=== PATIENT | female | born 1970 | race Caucasian/White ===

== ENCOUNTER 2017-10-21 19:46 | Emergency (ER) | payer MEDICAID, SELFPAY | END 2017-10-21 20:45 | disposition home or self-care (01) | PROVIDERS: Emergency Provider Nurse Practitioner Family; Family Provider Internal Medicine Adolescent Medicine; Visit Provider Nurse Practitioner Family | DX: K52.9 Noninfective gastroenteritis and colitis, unspecified (principal); F17.210 Nicotine dependence, cigarettes, uncomplicated; Z88.2 Allergy status to sulfonamides; F43.21 Adjustment disorder with depressed mood | CPT/HCPCS: 87804; 99201 ==

== ENCOUNTER → 2017-11-18 14:05 | Outpatient (CLI) | payer MEDICAID, SELFPAY ==
[2017-11-18 14:58] LABS: Basophils # 0.1 K/mm3 (0-0.2); Basophils % 0.6 % (0.1-2.0); Eosinophils # 0.2 K/mm3 (0.0-0.4); Eosinophils % 1.6 % (0.1-12.0); Hemoglobin 12.8 g/dL (12.2-16.2); Lymphocytes # 3.7 K/mm3 (0.7-4.5); Lymphocytes % 26.6 K/mm3 (10-50); Mean Corpuscular HGB Conc 31.9 g/dL (31.8-35.4); Mean Corpuscular Hemoglobin 29.6 pg (27.0-31.2); Mean Corpuscular Volume 92.7 fl (81-99); Mean Platelet Volume 7.3 fl (7.4-10.4); Monocytes # 0.7 K/mm3 (0.1-1.0); Monocytes % 5.1 % (1.7-9.3); Neutrophils # 9.1 K/mm3 (1.8-7.8); Neutrophils % 66.2 % (37.0-80.0); Platelet Count 312 K/mm3 (142-424); Red Blood Count 4.31 M/mm3 (4.20-5.40); Red Cell Distribution Width 12.6 % (11.5-17.5); White Blood Count 13.8 K/mm3 (4.8-10.8)
[2017-11-18 16:01] LABS: Alanine Aminotransferase 18 U/L (12-78); Albumin Level 3.8 gm/dL (3.4-5.0); Albumin/Globulin Ratio 1.3 (1.1-1.8); Alkaline Phosphatase 76 U/L (46-116); Anion Gap 11.6 mEq/L (5-15); Aspartate Amino Transferase 12 U/L (15-37); Bilirubin,Total 0.4 mg/dL (0.2-1.0); Blood Urea Nitrogen 9 mg/dL (7-18); Calcium 8.9 mg/dL (8.5-10.1); Carbon Dioxide 29 mmol/L (21.0-32.0); Chloride 101 mmol/L (98-107); Creatinine,Serum 0.61 mg/dL (0.55-1.02); Estimated Glomerular Filt Rate 105 ml/min (>60); GFR (African American) 127 ML/MIN (>60); Glucose 70 mg/dL (74-106); Potassium 3.6 mmoL/L (3.5-5.1); Sodium 138 mmol/L (136-145); Thyroid Stimulating Hormone 1.28 uIU/ml (0.358-3.740); Total Protein,Serum 6.8 gm/dL (6.4-8.2)
== END ==
PROVIDERS: PCP Nurse Practitioner Family; Visit Provider Nurse Practitioner Family
DX: D72.829 Elevated white blood cell count, unspecified (principal); E03.9 Hypothyroidism, unspecified
CPT/HCPCS: 36415; 80053; 84443; 85025

== ENCOUNTER → 2017-11-29 15:44 | Outpatient (CLI) | payer MEDICAID, SELFPAY ==
--- NOTE | 2017-11-29 15:52 | MM_ITS ---
MM Dig screening mamm BI w/CAD CAD Screening COMPARISON: Digital mammograms 09/22/2015 and 05/01/2013 INDICATION: There is no personal or family history of breast cancer. There is been previous biopsy right breast for benign disease. TECHNIQUE: Standard CC and MLO images were obtained. R2 CAD reviewed. FINDINGS: Prominent diffuse fibroglandular densities are seen throughout both breasts. There is more prominent nodularity in the right breast than seen previously and there is a possible new nodule left breast only definitely seen on the cc view. The patient should return for ultrasound evaluation of both breasts. There is a biopsy clip right breast. There are no suspicious microcalcifications. IMPRESSION: Moderate diffuse breast density with possible new nodules in each breast likely cysts and the patient should return for additional ultrasound imaging . BI-RADS Category: 0 Need Additional Imaging Evaluaiton RECOMMENDED FOLLOW-UP: IMM - IMMEDIATE FOLLOW-UP RECOMMENDED (A letter has been sent to the patient regarding results of the study.)
== END ==
PROVIDERS: Family Provider Internal Medicine Adolescent Medicine; PCP Nurse Practitioner Family; Visit Provider Nurse Practitioner Family
DX: Z12.31 Encounter for screening mammogram for malignant neoplasm of breast (principal)
CPT/HCPCS: 77067

== ENCOUNTER → 2017-12-07 14:38 | Outpatient (CLI) | payer MEDICAID, SELFPAY ==
--- NOTE | 2017-12-07 14:41 | US_ITS ---
US breast LT complete COMPARISON: None HISTORY: Possible new nodular density left breast on recent mammogram TECHNIQUE: Targeted ultrasound primarily upper outer quadrant FINDINGS: Is a oval hypoechoic lesion with well-defined borders at the 1:00 position near the nipple corresponding in size and location to the asymmetric density on recent mammogram. It measures 0.9 x 1.1 x 0.5 cm. And shows homogeneous decreased echogenicity in the appearance is most typical of a fibroadenoma. There is a second hypoechoic oval lesion at the 2:00 position outer breast measuring 0.8 x 0.4 x 0.9 cm and shows homogeneous echogenicity and likely is a fibroadenoma as well. There are couple tiny hypoechoic and likely cystic lesions as well. There is a normal-appearing node in the axilla. 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 BI-RADS Category 3 short term interval follow-up
--- NOTE | 2017-12-07 14:41 | US_ITS ---
US breast RT complete COMPARISON: Ultrasound right breast 07/14/2012 HISTORY: Evaluation of asymmetric densities on recent mammogram TECHNIQUE: Targeted ultrasound right breast FINDINGS: There are 2 hypoechoic oval lesions adjacent to one another at the 9:00 position near the nipple which are basically stable and unchanged in size from the previous ultrasound exam in 2012. There is a third smaller hypoechoic lesion near the 9:00 position measuring 0.7 0.8 x 0.4 cm and this also compares with hypoechoic lesion at this location seen on the previous ultrasound exam. There is no suspicious lesion. There is a normal-appearing node in the axilla. IMPRESSION: Stable hypoechoic lesions right breast likely fibroadenomas showing a 6 year stability and I feel no additional evaluation is indicated at this time.
== END ==
PROVIDERS: Family Provider Internal Medicine Adolescent Medicine; PCP Nurse Practitioner Family; Visit Provider Internal Medicine Adolescent Medicine
DX: R92.8 Other abnormal and inconclusive findings on diagnostic imaging of breast (principal)
CPT/HCPCS: 76641

== ENCOUNTER → 2018-01-27 09:49 | Outpatient (CLI) | payer MEDICAID, SELFPAY ==
--- NOTE | 2018-01-27 09:52 | XR_ITS ---
XR shoulder LT min 2V HISTORY: ITS.REASON: postoperative visit/ dos 04-19-17 ORDERING PHYSICIAN: Sergio Brown MD PATIENT AGE: 47 years COMPARISON: 07/27/2017 FINDINGS: Prior osteotomy at the AC joint as previously described. No evidence of subacromial stenosis. The glenohumeral joint has an unremarkable appearance. There remains a lucency in the proximal aspect of the humerus consistent with a surgical defect. IMPRESSION: Postsurgical changes, no change with no acute finding
== END ==
PROVIDERS: PCP Internal Medicine Adolescent Medicine; Visit Provider Orthopaedic Surgery
DX: Z48.89 Encounter for other specified surgical aftercare (principal)
CPT/HCPCS: 73030

== ENCOUNTER → 2018-02-21 13:24 | Outpatient (CLI) | payer MEDICAID, SELFPAY ==
[2018-02-21 13:44] LABS: Basophils # 0.1 K/mm3 (0-0.2); Basophils % 0.5 % (0.1-2.0); Eosinophils # 0.3 K/mm3 (0.0-0.4); Hematocrit 42.8 % (37.0-47.0); Hemoglobin 13.9 g/dL (12.2-16.2); Lymphocytes # 2.7 K/mm3 (0.7-4.5); Lymphocytes % 20.6 K/mm3 (10-50); Mean Corpuscular HGB Conc 32.5 g/dL (31.8-35.4); Mean Corpuscular Hemoglobin 30.6 pg (27.0-31.2); Mean Platelet Volume 7.3 fl (7.4-10.4); Monocytes # 0.6 K/mm3 (0.1-1.0); Monocytes % 4.4 % (1.7-9.3); Neutrophils # 9.4 K/mm3 (1.8-7.8); Neutrophils % 72.5 % (37.0-80.0); Platelet Count 328 K/mm3 (142-424); Red Blood Count 4.56 M/mm3 (4.20-5.40); Red Cell Distribution Width 12.6 % (11.5-17.5)
[2018-02-21 14:28] LABS: Alanine Aminotransferase 23 U/L (12-78); Albumin Level 3.8 gm/dL (3.4-5.0); Albumin/Globulin Ratio 1.1 (1.1-1.8); Alkaline Phosphatase 84 U/L (46-116); Aspartate Amino Transferase 12 U/L (15-37); Bilirubin,Total 0.2 mg/dL (0.2-1.0); Blood Urea Nitrogen 14 mg/dL (7-18); Calcium 9.5 mg/dL (8.5-10.1); Carbon Dioxide 27 mmol/L (21.0-32.0); Chloride 105 mmol/L (98-107); Creatinine,Serum 0.77 mg/dL (0.55-1.02); Estimated Glomerular Filt Rate 80 ml/min (>60); GFR (African American) 97 ML/MIN (>60); Globulin 3.4 gm/dl (1.3-3.2); Glucose 97 mg/dL (74-106); Sodium 142 mmol/L (136-145); Total Protein,Serum 7.2 gm/dL (6.4-8.2)
[2018-02-21 15:03] LABS: Thyroid Stimulating Hormone 3.34 uIU/ml (0.358-3.740)
[2018-02-24 12:41] LABS: Vitamin B12 837 pg/mL (232-1245); Vitamin D 25 Hydroxy 30.7 ng/mL (30.0-100.0)
== END ==
PROVIDERS: Visit Provider Internal Medicine Adolescent Medicine
DX: R53.83 Other fatigue (principal); D72.829 Elevated white blood cell count, unspecified
CPT/HCPCS: 36415; 80053; 82607; 82652; 84443; 85025

== ENCOUNTER → 2018-02-27 08:11 | Outpatient (CLI) | payer MEDICAID, SELFPAY ==
[2018-02-27 08:47] LABS: Basophils # 0.1 K/mm3 (0-0.2); Basophils % 0.6 % (0.1-2.0); Eosinophils # 0.3 K/mm3 (0.0-0.4); Eosinophils % 2.6 % (0.1-12.0); Hematocrit 42.2 % (37.0-47.0); Hemoglobin 13.6 g/dL (12.2-16.2); Lymphocytes # 3.3 K/mm3 (0.7-4.5); Lymphocytes % 32.1 K/mm3 (10-50); Mean Corpuscular HGB Conc 32.2 g/dL (31.8-35.4); Mean Corpuscular Hemoglobin 30.1 pg (27.0-31.2); Mean Corpuscular Volume 93.3 fl (81-99); Monocytes # 0.5 K/mm3 (0.1-1.0); Monocytes % 4.5 % (1.7-9.3); Neutrophils # 6.2 K/mm3 (1.8-7.8); Neutrophils % 60.2 % (37.0-80.0); Red Blood Count 4.52 M/mm3 (4.20-5.40); Red Cell Distribution Width 12.3 % (11.5-17.5); White Blood Count 10.4 K/mm3 (4.8-10.8)
[2018-02-28 13:26] LABS: MANUAL DIFFERENTIAL MANUAL DIFFERENTIAL (MANUAL DIFF)
[2018-02-28 15:11] LABS: Eosinophils % 1 % (0-3); Lymphocytes % 45 % (10-50); Monocytes % 7 % (2-9); Neutrophils % 45 % (42-76); Total Cells Counted 100
[2018-02-28 15:13] LABS: Platelet Estimate Normal
[2018-02-28 15:14] LABS: RBC Morphology Normal
[2018-02-28 15:17] LABS: Platelet Count 377 K/mm3 (142-424)
[2018-03-02 13:26] LABS: Peripheral Smear Review Scanned Result
== END ==
PROVIDERS: Visit Provider Nurse Practitioner Family
DX: D72.829 Elevated white blood cell count, unspecified (principal)
CPT/HCPCS: 36415; 85007; 85014; 85018; 85025; 85048; 85049

== ENCOUNTER → 2018-03-29 12:46 | Outpatient (CLI) | payer MEDICAID, SELFPAY ==
[2018-03-29 13:13] LABS: Basophils # 0.1 K/mm3 (0-0.2); Basophils % 0.6 % (0.1-2.0); Eosinophils # 0.3 K/mm3 (0.0-0.4); Eosinophils % 2.2 % (0.1-12.0); Hematocrit 41.4 % (37.0-47.0); Hemoglobin 12.9 g/dL (12.2-16.2); Lymphocytes # 3.1 K/mm3 (0.7-4.5); Lymphocytes % 27.4 K/mm3 (10-50); Mean Corpuscular HGB Conc 31.3 g/dL (31.8-35.4); Mean Corpuscular Hemoglobin 28.9 pg (27.0-31.2); Mean Corpuscular Volume 92.3 fl (81-99); Monocytes # 0.5 K/mm3 (0.1-1.0); Monocytes % 4.4 % (1.7-9.3); Neutrophils # 7.3 K/mm3 (1.8-7.8); Neutrophils % 65.4 % (37.0-80.0); Platelet Count 374 K/mm3 (142-424); Red Blood Count 4.48 M/mm3 (4.20-5.40); Red Cell Distribution Width 12.4 % (11.5-17.5); White Blood Count 11.2 K/mm3 (4.8-10.8)
[2018-03-29 14:03] LABS: Alanine Aminotransferase 17 U/L (12-78); Albumin Level 3.6 gm/dL (3.4-5.0); Alkaline Phosphatase 94 U/L (46-116); Anion Gap 12.4 mEq/L (5-15); Aspartate Amino Transferase 12 U/L (15-37); Bilirubin,Total 0.3 mg/dL (0.2-1.0); Blood Urea Nitrogen 10 mg/dL (7-18); Calcium 9.4 mg/dL (8.5-10.1); Carbon Dioxide 27 mmol/L (21.0-32.0); Chloride 105 mmol/L (98-107); Creatinine,Serum 0.91 mg/dL (0.55-1.02); Estimated Glomerular Filt Rate 66 ml/min (>60); GFR (African American) 80 ML/MIN (>60); Globulin 3.5 gm/dl (1.3-3.2); Glucose 89 mg/dL (74-106); Potassium 4.4 mmoL/L (3.5-5.1); Sodium 140 mmol/L (136-145); Total Protein,Serum 7.1 gm/dL (6.4-8.2)
== END ==
PROVIDERS: Visit Provider Internal Medicine
DX: D72.829 Elevated white blood cell count, unspecified (principal)
CPT/HCPCS: 36415; 80053; 85025

== ENCOUNTER → 2018-03-31 13:37 | Outpatient (CLI) | payer MEDICAID, SELFPAY | PROVIDERS: Visit Provider Internal Medicine | DX: D72.829 Elevated white blood cell count, unspecified (principal) | CPT/HCPCS: 36415; 85540 ==

== ENCOUNTER → 2018-05-24 14:15 | Outpatient (CLI) | payer MEDICAID, SELFPAY ==
--- NOTE | 2018-05-24 14:17 | US_ITS ---
US breast LT complete Ordering Physician: Symone Andersno Patient Age: 47 years: Female HISTORY: ITS.REASON: ABNORMAL MAMM TECHNIQUE: Ultrasound survey entire left breast history axillary survey Only an ultrasound apparently performed at this time no mammogram A performed at this point. The patient has had breast care. At [facility] and as well as [facility] in past COMPARISON :Previous ultrasound left breast December ultrasound as well as prior ultrasound --LEFT BREAST ULTRASOUND At 1:00 we again see a small hypoechoic solid nodule. On sagittal image it does elongate measuring nearly 1 cm length X 0.5 cm AP it appears similar to the previous study with no significant change and can be followed. . 2 o'clock position at of breast similar small solid nodule. It was seen before and appears fairly recently similar when considering differences in technique and projection. It measures 1 cm length x up to 0.5 cm AP. It appears stable and transversely view. Particularly incrementally longer on the sagittal view but more likely this is merely variation and sampling. It again be followed,... Given its well-defined margin; and width greater than height 5:00. There is a 9.6 mm length x 3.3 mm AP elongated mixed density area could be collection of cysts present early fibroadenoma at this point. This was not identified on previous study. Appears benign follow-up would be adequate. 6:00. Small collection of cysts this spans 7.5 mm length x 2.6 mm AP. 11:00 small 2.6 mm cyst Small benign axillary lymph nodes. ----- -Right Breast Ultrasound NOT performed today but performed and December 2017 and showed stable nodular densities.. However I reviewed below to determine best follow-up recommendation.. Again demonstrated long-standing stable bilobed area at 9:00 on that study which should be followed along with some other most likely benign densities ---IMPRESSION--- Left breast: scattered cysts and fibroadenomas appearing areas left breast which are not changed appreciably since previous study would. Again recommend 6-8 month follow-up to resume annual scheduled December 2018 Left breast findings include: 1. stable solid nodule at 1:00 measures 1 cm cm length maximally 2. solid nodule 2 o'clock position. Appears stable on the transverse views but appears incrementally longer on sagittal views now measuring just over 1 cm. But this may merely reflect once of measurement. Both above features are felt to be most likely benign fibroadenomas but do warrant follow-up in 6 months 3. There is also is likely a benign thin septated collection of cyst at 6 o'clock position and elongated such area at 5:00. These most likely benign features can be followed as well 4. Recommend follow-up bilateral mammogram and bilateral breast ultrasound in 6-8 months, to resume annual schedule BI-RADS 2... Benign appearing / probable benign RECOMMENDATION Bilateral mammogram & bilateral breast ultrasound 6-8 months. to resume annual schedule
== END ==
PROVIDERS: Family Provider Internal Medicine Adolescent Medicine; PCP Internal Medicine Adolescent Medicine; Visit Provider Nurse Practitioner Family
DX: R92.8 Other abnormal and inconclusive findings on diagnostic imaging of breast (principal)
CPT/HCPCS: 76641

== ENCOUNTER → 2018-07-13 08:55 | Outpatient (CLI) | payer MEDICAID, SELFPAY ==
--- NOTE | 2018-07-13 08:57 | CT_ITS ---
CT abdomen pelvis wo/w con CLINICAL INDICATION: Recurrent urinary tract infections ITS.REASON: UTI'S ORDERING PHYSICIAN: Elliot Shea MD PATIENT AGE: 47 years COMPARISON: 11/24/2016 TECHNIQUE: Axial images obtained without and with 75 mL's of Isovue-370. Unenhanced, Immediate and 10 minute post enhanced delayed images are obtained obtained with sagittal and coronal reformats. All CT scans at the facility use one or more dose reduction, viz: automated exposure control, ma/kV adjustment per patient size (including targeted exams where dose is matched to indication, i.e. head), or iterative reconstruction technique. PROCEDURE: Oral Contrast: None IV Contrast: 75 mL's of Isovue-370. FINDINGS: The lung bases are clear. A 5 mm isodensity is present in the hepatic dome superiorly nonspecific too small to categorize. An additional 4 mm isodense is present in the right hepatic lobe anteriorly and may be partial volume averaging from the overlying biliary triad versus a small isodense lesion. Spleen, adrenal glands, pancreas, and gallbladder have an unremarkable appearance. No renal or ureteral calculi. No hydronephrosis. No renal mass. Unremarkable appearing urinary bladder Unremarkable appendix. There is a 13 mm right ovarian cyst. There are bilateral tubal ligation clips. There is a diverticulum of the descending colon. No evidence of diverticulitis. No pelvic mass or abnormal fluid collection or focal inflammatory change in the pelvis. Endometrial canal is slightly prominent and could be due to patient's phase of menstruation. No acute bony anomalies. There is a tiny umbilical hernia containing fat IMPRESSION: 1. No renal or ureteral calculi. No hydronephrosis or renal mass. 2. Nonacute findings as described above.
== END ==
PROVIDERS: Family Provider Internal Medicine Adolescent Medicine; PCP Internal Medicine Adolescent Medicine; Visit Provider Urology
DX: N39.0 Urinary tract infection, site not specified (principal)
CPT/HCPCS: 74170; 74178; Q9967

== ENCOUNTER → 2018-11-30 10:02 | Outpatient (CLI) | payer MEDICAID, SELFPAY ==
--- NOTE | 2018-11-30 10:07 | US_ITS ---
MM Dig screening mamm BI w/CAD US Right Breast ORDERING PHYSICIAN : Symone Anderson PATIENT AGE: 48 years GENDER: Female COMPARISON: Bilateral digital screening mammogram Oct 2017, Aug 2015, April 2013 Right breast ultrasound: 11/30/2018, to December 2017, July 2012 & February 2011 Left breast ultrasound December 2017 INDICATION: Routine SCREENING mammogram was ordered. This study following up nodular densities the . No hormones no new complaints Previous benign percutaneous biopsy right breast. Apparently elsewhere as we see no images at this facility from the procedure itself, performed after February 2011 breast imaging imaging studies. Family history.: Unremarkable TECHNIQUE 1. Routine screening mammogram:: Standard CC and MLO images were obtained. R2 CAD reviewed. Additional axillary cc view both breast 2.. Subsequent Right Breast Ultrasound including axillary survey BILATERAL DIAGNOSTIC MAMMOGRAM . Difficult to evaluate breast due to the scattered focal areas of nodular densities upon a background of moderately dense breast tissue RIGHT MAMMOGRAM:: . Multiple modest size nodular densities right breast again noted.-Most of these are similar to 2018, 2017. Some are perhaps slightly more evident for example, there is a area labeled A superior right breast on MLO view which perhaps slightly more evident today.. As is a small area at the deep breast labeled B slightly more evident.. Bilobed area labeled C appears similar.. These majority of these areas are small debris filled cyst is suggested on today's ultrasound.. Semisolid cyst or fibroadenoma category for the long-standing bilobed density (labeled C). As noted majority of these areas seem to fluctuate from scan to scan and supportive there are most likely cysts; however bilobed area could reflect a fibroadenoma... Although I believe these are benign features since these areas are more evident I would suggest a follow-up right breast ultrasound & mammogram 6 months. LEFT MAMMOGRAM. Minimal asymmetric areas of density & mild nodularity again seen today,. Majority are similar to previous studies including those from 2018 as well as older studies. Question possible subtle progression of density at the area towards upper outer quadrant of the left breast, 1 o'clock position.-Most significant is that This correlates with a indeterminate area on previous ultrasound. This is labeled X. I would recommend patient return for ultrasound and spot views . Perhaps subtle additional density and nodularity inferior left breast-most likely merely be projectional, but spot views recommended here as well at these areas labeled Y Last last wall, mild accentuation deep axillary tail left breast is slightly more pronounced today (. Labeled Z) space & warrants a deep axillary cc spot view. Along with ultrasound survey of this region. RIGHT BREAST ULTRASOUND including axilla survey/cc Apparently right breast ultrasound was ordered performed today subsequent to this mammogram.. No left wrist ultrasound performed. No comments nor note from technologist-Unclear if it was reviewed by the physician on site as a follow-up today, but either case has been sent to me to read & complete at this time.. Right breast ultrasound demonstrates multiple scattered hypoechoic areas majority reflecting debris-filled cysts:. 12:00 small 4.1 mm cyst. 8:00 there is a 4.5 mm mm cyst. 9 o'clock p central breast.:. Probable Debris-filled cyst, deep breast measuring up to 7.8 mm. Scattered Benign-appearing axillary lymph nodes. Most notable finding is at 9:00 deep central breast. , Stable appearing indeterminate area encountered: The most prominent area on ultrasound is seen here 9:00. Bilobed hypoechoic ar
== END ==
PROVIDERS: PCP Nurse Practitioner Family; Visit Provider Nurse Practitioner Family
DX: Z12.31 Encounter for screening mammogram for malignant neoplasm of breast (principal); R92.8 Other abnormal and inconclusive findings on diagnostic imaging of breast
CPT/HCPCS: 76641; 77067

== ENCOUNTER → 2018-12-25 12:53 | Outpatient (CLI) | payer MEDICAID, SELFPAY ==
--- NOTE | 2018-12-25 12:55 | MM_ITS ---
MM Dig mamm DX unilat LT CAD, US breast LT complete INDICATION: Follow-up abnormal screening exam ORDERING PHYSICIAN: Symone Anderson PATIENT AGE: 48 years COMPARISON: 11/30/2018, 11/29/2017 TECHNIQUE: Problem-solving views performed of the left breast along left breast ultrasound FINDINGS: Average fibroglandular tissue. There are scattered fibroglandular asymmetric elements. No malignant appearing mass or malignant appearing microcalcifications. On the ML view there is a 1 cm nodular opacity in the inferior aspect of the left breast which may correspond to the nodule noted on ultrasound at 1:00. Other areas of asymmetric density described on the screening mammogram appear to compress out as fibroglandular tissue similar when compared to 11/29/2017. Left breast ultrasound: COMPARISON is made to 05/24/2018. Nonspecific 3 mm slightly hypoechoic nodule at 12:00 1 x 6 mm hypoechoic nodule at 1:00 near the nipple. This does contain some low-level internal echoes but does show some enhanced through transmission of sound and is overall not significant changed. This is stable dating back to 12/07/2017. A hypoechoic 1 cm x 0.5 cm nodule noted at 2:00 unchanged. Flat-like hypoechoic nodule 5:00 12 mm x 3 mm unchanged. Complex 9 x 3 mm cyst is present at 6:00 not significantly changed. 5 mm hypoechoic nodule at 11:00 near the nipple noted probably unchanged at least from 12/07/2017 exam. IMPRESSION: Probably benign findings. No convincing evidence of malignancy with no significant change. Multiple hypoechoic nodules of the left breast appear stable scattered areas of asymmetry also probably benign. 1 cm nodular opacity is present superiorly on the ML view the nodule at one or 2:00. Previous ML view not obtained. BI-RADS Category: 3 Probably Benign Finding Short Term Follow-up RECOMMENDED FOLLOW-UP: 6M - 6 MONTH FOLLOW-UP As per the report 11/30/2018, recommend bilateral 6 month mammographic and sonographic follow-up (A letter has been sent to the patient regarding results of the study.)
== END ==
PROVIDERS: PCP Nurse Practitioner Family; Visit Provider Nurse Practitioner Family
DX: R92.8 Other abnormal and inconclusive findings on diagnostic imaging of breast (principal)
CPT/HCPCS: 76641; 77065

== ENCOUNTER → 2019-05-16 12:11 | Outpatient (CLI) | payer MEDICAID, SELFPAY ==
[2019-05-16 12:41] LABS: Basophils # 0.1 K/mm3 (0-0.2); Basophils % 0.3 % (0.1-2.0); Eosinophils % 0.2 % (0.1-12.0); Hematocrit 41.5 % (37.0-47.0); Hemoglobin 12.9 g/dL (12.2-16.2); Lymphocytes # 2.6 K/mm3 (0.7-4.5); Lymphocytes % 16.2 % (10-50); Mean Corpuscular HGB Conc 31.2 g/dL (31.8-35.4); Mean Corpuscular Hemoglobin 27.9 pg (27.0-31.2); Mean Corpuscular Volume 89.4 fl (81-99); Mean Platelet Volume 7.1 fl (7.4-10.4); Monocytes # 0.7 K/mm3 (0.1-1.0); Monocytes % 4.3 % (1.7-9.3); Neutrophils # 12.7 K/mm3 (1.8-7.8); Platelet Count 426 K/mm3 (142-424); Red Blood Count 4.65 M/mm3 (4.20-5.40); White Blood Count 16.1 K/mm3 (4.8-10.8)
[2019-05-16 12:46] LABS: MANUAL DIFFERENTIAL MANUAL DIFFERENTIAL (MANUAL DIFF)
[2019-05-16 14:05] LABS: Alanine Aminotransferase 21 U/L (12-78); Albumin Level 3.9 gm/dL (3.4-5.0); Albumin/Globulin Ratio 1.1 (1.1-1.8); Alkaline Phosphatase 82 U/L (46-116); Anion Gap 14.3 mEq/L (5-15); Aspartate Amino Transferase 8 U/L (15-37); Bilirubin,Total 0.3 mg/dL (0.2-1.0); Blood Urea Nitrogen 15 mg/dL (7-18); Calcium 9.5 mg/dL (8.5-10.1); Carbon Dioxide 29 mmol/L (21.0-32.0); Chloride 102 mmol/L (98-107); Chol/HDL Ratio 2.7 (1-3.5); Cholesterol 219 mg/dL (140-200); Creatinine,Serum 0.79 mg/dL (0.55-1.02); Estimated Glomerular Filt Rate 78 ml/min (>60); GFR (African American) 94 ML/MIN (>60); Globulin 3.4 gm/dl (1.3-3.2); Glucose 86 mg/dL (74-106); HDL Cholesterol 80 mg/dL (29-89); LDL Cholesterol 126 mg/dL (0-130); Potassium 4.3 mmoL/L (3.5-5.1); Sodium 141 mmol/L (136-145); Total Protein,Serum 7.3 gm/dL (6.4-8.2); Triglycerides 66 mg/dL (30-200); VLDL Cholesterol 13 mg/dL (0-40)
[2019-05-16 17:26] LABS: Lymphocytes % 15 % (10-50); Monocytes % 3 % (2-9); Neutrophils % 82 % (42-76); Platelet Estimate Normal; RBC Morphology Normal; Total Cells Counted 100
== END ==
PROVIDERS: Visit Provider Nurse Practitioner Obstetrics & Gynecology
DX: Z01.419 Encounter for gynecological examination (general) (routine) without abnormal findings (principal)
CPT/HCPCS: 36415; 80053; 80061; 85007; 85025

== ENCOUNTER → 2019-05-21 10:59 | Outpatient (CLI) | payer MEDICAID, SELFPAY ==
--- NOTE | 2019-05-21 11:00 | US_ITS ---
US transvaginal HISTORY: ITS.REASON: US T/V-Pelvic Pain ORDERING PHYSICIAN: Edmond Cid MD PATIENT AGE: 48 years Comparison: None FINDINGS: UTERUS: The uterus measures 7.9 x 4.0 x 4.9 cm. Combined endometrial thickness is 6.5 mm.. RIGHT OVARY: 2.1 x 1.7 x 2.2. LEFT OVARY: 2.5 x 1.4 x 2.5 cm. CUL-DE-SAC FLUID: No cul-de-sac fluid apparent OTHER FINDINGS: There is blood flow to both ovaries. IMPRESSION: No acute process. Uterus and both ovaries appear normal without focal sonographic abnormality.
== END ==
PROVIDERS: PCP Internal Medicine Adolescent Medicine; Visit Provider Nurse Practitioner Obstetrics & Gynecology
DX: R10.2 Pelvic and perineal pain (principal)
CPT/HCPCS: 76830

== ENCOUNTER → 2019-05-24 09:35 | Outpatient (CLI) | payer MEDICAID, SELFPAY ==
--- NOTE | 2019-05-24 09:39 | CT_ITS ---
CT angio chest HISTORY: ITS.REASON: FHX THORACIC ANEURYSM, TOBACCO USE ORDERING PHYSICIAN: Symone Anderson APRN PATIENT AGE: 48 years COMPARISON: None TECHNIQUE: Axial images obtained following the administration of 75 mL of Optiray 350 . Sagittal, and coronal reformatted images are also generated and reviewed. All CT scans at the facility use one or more dose reduction, viz: automated exposure control, ma/kV adjustment per patient size (including targeted exams where dose is matched to indication, i.e. head), or iterative reconstruction technique. FINDINGS: Airway structures are patent without pleural effusion or pneumothorax. Image #17 shows a 2 mm noncalcified nodule in the anterior right apex. The remainder of the lung ambriz are clear. Heart size and thoracic aorta appears normal. Maximal diameter of the ascending aorta is 2.6 cm. There are no abnormal mediastinal or hilar densities. 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 The visualized upper abdominal structures are unremarkable. Impression: Normal thoracic aorta. 2.0 mm right apical noncalcified nodule. If there are risk factors follow-up in 1 year and if no risk factors no follow-up necessary. 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
== END ==
PROVIDERS: PCP Nurse Practitioner Family; Visit Provider Nurse Practitioner Family
DX: Z82.49 Family history of ischemic heart disease and other diseases of the circulatory system (principal); Z72.0 Tobacco use
CPT/HCPCS: 71275; Q9967

== ENCOUNTER → 2019-11-14 14:59 | Outpatient (CLI) | payer OTHER, SELFPAY ==
[2019-11-14 15:17] LABS: Basophils # 0.1 K/mm3 (0-0.2); Basophils % 0.6 % (0.1-2.0); Eosinophils # 0.3 K/mm3 (0.0-0.4); Hematocrit 40.6 % (37.0-47.0); Hemoglobin 13.1 g/dL (12.2-16.2); Lymphocytes # 3.6 K/mm3 (0.7-4.5); Lymphocytes % 29.2 % (10-50); Mean Corpuscular HGB Conc 32.3 g/dL (31.8-35.4); Mean Corpuscular Hemoglobin 29.7 pg (27.0-31.2); Mean Corpuscular Volume 92.1 fl (81-99); Mean Platelet Volume 7.4 fl (7.4-10.4); Monocytes # 0.4 K/mm3 (0.1-1.0); Monocytes % 3.5 % (1.7-9.3); Neutrophils # 8.1 K/mm3 (1.8-7.8); Neutrophils % 64.7 % (37.0-80.0); Platelet Count 388 K/mm3 (142-424); Red Blood Count 4.41 M/mm3 (4.20-5.40); Red Cell Distribution Width 12.6 % (11.5-17.5); White Blood Count 12.5 K/mm3 (4.8-10.8)
[2019-11-14 16:28] LABS: Alanine Aminotransferase 21 U/L (12-78); Albumin Level 3.8 gm/dL (3.4-5.0); Albumin/Globulin Ratio 1.2 (1.1-1.8); Alkaline Phosphatase 86 U/L (46-116); Aspartate Amino Transferase 11 U/L (15-37); Bilirubin,Total 0.2 mg/dL (0.2-1.0); Blood Urea Nitrogen 11 mg/dL (7-18); Calcium 9.2 mg/dL (8.5-10.1); Carbon Dioxide 28 mmol/L (21.0-32.0); Chloride 101 mmol/L (98-107); Estimated Glomerular Filt Rate 76 ml/min (>60); Free Thyroxine Index 4.8 ug/dL (5.93-13.13); GFR (African American) 92 ML/MIN (>60); Globulin 3.1 gm/dl (1.3-3.2); Glucose 82 mg/dL (74-106); Sodium 138 mmol/L (136-145); T4 (Thyroxine) 12.5 ug/dl (4.7-13.3); Thyroid Stimulating Hormone 2.44 uIU/ml (0.358-3.740); Total Protein,Serum 6.9 gm/dL (6.4-8.2); Triiodothryronine (T3) Uptake 38 % (31-39)
[2019-11-16 09:22] LABS: Vitamin B12 611 pg/mL (232-1245); Vitamin D 25 Hydroxy 30.5 ng/mL (30.0-100.0)
== END ==
PROVIDERS: Visit Provider Internal Medicine Adolescent Medicine
DX: E03.9 Hypothyroidism, unspecified (principal); F41.9 Anxiety disorder, unspecified
CPT/HCPCS: 36415; 80053; 82607; 82652; 84436; 84443; 84479; 85025

== ENCOUNTER → 2019-12-03 08:41 | Outpatient (CLI) | payer OTHER, SELFPAY ==
--- NOTE | 2019-12-03 08:43 | MM_ITS ---
PROCEDURE: MM DIG SCREENING MAMM BI W/CAD CLINICAL INDICATION: SCREENING There is no personal or family history of breast cancer. There has been a previous biopsy right breast for benign disease. COMPARISON: [facility] MM Dig screening mamm BI w/CAD from 11/29/2017 [facility] MM Dig screening mamm BI w/CAD from 11/30/2018 [facility] MM Dig mamm DX unilat LT CAD from 12/25/2018 TECHNIQUE: Standard CC and MLO images and 3D Tomosynthesis was obtained. R2 CAD reviewed. FINDINGS: Moderate diffuse fibroglandular densities are seen throughout both breasts. There are stable nodular densities in each breast. There is a possible new asymmetric density left breast or change in previously noted density which is best seen on the keerthi images. Recommend the patient return for spot compression views in the MLO and CC projection and ultrasound as well. There is a biopsy clip right breast. There are no suspicious microcalcifications. IMPRESSION: Diffusely nodular breast parenchyma somewhat lessening the sensitivity of mammography with possible new asymmetric density left breast BI-RAD Category: 0 Need Additional Imaging Evaluation FOLLOW-UP: IMM Immediate Follow-up Recommended (A letter has been sent to the patient regarding results of the study.) Dictated by: Dr. Johny Marino MD 12/04/2019 19:[address] Johny Marino MD in [place] 12/04/2019 19:38
== END ==
PROVIDERS: PCP Internal Medicine Adolescent Medicine; Visit Provider Nurse Practitioner Family
DX: Z12.31 Encounter for screening mammogram for malignant neoplasm of breast (principal)
CPT/HCPCS: 77063; 77067

== ENCOUNTER → 2019-12-21 14:18 | Outpatient (CLI) | payer OTHER, SELFPAY ==
--- NOTE | 2019-12-21 14:22 | MM_ITS ---
PROCEDURE: MM DIG MAMM DX UNILAT LT CAD CLINICAL INDICATION: ABNORMAL MAMM COMPARISON: MM DIG SCREENING MAMM BI W/CAD from 12/03/2019 TECHNIQUE: Focal cone compression views over area of asymmetrical density on the screening mammogram were performed in the CC and MLO projections. FINDINGS: No discrete mass is identified. Area of asymmetrical density appears to efface as normal tissue and a discrete mass is not confirmed on the additional views. The finding is felt to be probably benign. IMPRESSION: BI-RAD Category: 3 Probably Benign Finding Short Term Follow-up FOLLOW-UP: 6M 6Month Follow-up (A letter has been sent to the patient regarding results of the study.) Dictated by: Willard Ponce 12/22/2019 09:21 Electronically signed by Willard Ponce in [place] 12/22/2019 09:21
--- NOTE | 2019-12-21 14:22 | US_ITS ---
PROCEDURE: US BREAST LT COMPLETE CLINICAL INDICATION: ABNORMAL MAMM COMPARISON: BREASTLT US breast LT complete from 12/25/2018 mammogram 12/21/2019 FINDINGS: Images demonstrate a 2.9 x 82.4 x 2.1 millimeter cystic lesion at 12 o'clock near the nipple. Some internal echogenicities may be due to complication or reverberation artifact. This appears more cystic than on previous exam. At 1 o'clock near the nipple a lobulated hypoechoic nodule 10.2 by 5.3 x 5.1 millimeters is noted. This did measure approximately 10.5 by 5.9 x 5.4 millimeters. This appears predominantly solid. It is not significantly changed. There is some attenuation of the ultrasound beam. Interval stability favors benign etiology. At 5 o'clock near the nipple an unchanged hypoechoic nodule 9.4 by 3.1 by 7.3 millimeters is noted. This did measure up to 12.1 by 3.2 by 9 millimeters. At 6 o'clock hypoechoic nodule 3.8 x 3.5 x 2.4 millimeters is noted. This appears new. Complicated cyst is favored. The complex cystic lesion described previously at 6 o'clock is not reproduced. At 2 o'clock near the nipple a hypoechoic nodule 8.5 by 10.5 x 3.4 millimeters is noted. This was approximately 9.7 x 4.1 x 8.9 millimeters. No distinct mammographic correlates for these nodules are apparent. Nodes are seen in the axilla. IMPRESSION: BI-RADS category 3 probably benign findings. New complicated cystic nodule at 6 o'clock 3.8 x 3.5 x 2.4 millimeters is noted. Other nodules seen sonographically on exam 12/25/2018 are not significantly changed. Six-month follow-up ultrasound and mammography are recommended. Dictated by: Willard Ponce 12/22/2019 09:41 Electronically signed by Willard Ponce in [place] 12/22/2019 09:41
[2019-12-21 16:10] LABS: Basophils # 0.1 K/mm3 (0-0.2); Basophils % 0.5 % (0.1-2.0); Eosinophils # 0.5 K/mm3 (0.0-0.4); Eosinophils % 2.3 % (0.1-12.0); Hematocrit 39.5 % (37.0-47.0); Hemoglobin 13.2 g/dL (12.2-16.2); Lymphocytes # 5.8 K/mm3 (0.7-4.5); Lymphocytes % 28.5 % (10-50); Mean Corpuscular HGB Conc 33.5 g/dL (31.8-35.4); Mean Corpuscular Hemoglobin 29.6 pg (27.0-31.2); Mean Corpuscular Volume 88.4 fl (81-99); Mean Platelet Volume 7.6 fl (7.4-10.4); Monocytes # 0.9 K/mm3 (0.1-1.0); Monocytes % 4.6 % (1.7-9.3); Neutrophils % 64.1 % (37.0-80.0); Platelet Count 413 K/mm3 (142-424); Red Blood Count 4.47 M/mm3 (4.20-5.40); Red Cell Distribution Width 12.6 % (11.5-17.5); White Blood Count 20.3 K/mm3 (4.8-10.8)
[2019-12-21 16:32] LABS: MANUAL DIFFERENTIAL MANUAL DIFFERENTIAL (MANUAL DIFF)
[2019-12-21 17:49] LABS: Chloride 98 mmol/L (98-107); Potassium 3.8 mmoL/L (3.5-5.1); Sodium 135 mmol/L (136-145)
[2019-12-21 17:52] LABS: Alanine Aminotransferase 13 U/L (12-78); Albumin Level 3.9 g/dl (3.5-5.0); Albumin/Globulin Ratio 1.6 (1.1-1.8); Alkaline Phosphatase 70 U/L (38-126); Anion Gap 9.8 mEq/L (5-15); Aspartate Amino Transferase 15 U/L (14-36); Bilirubin,Total 0.2 mg/dl (0.2-1.3); Blood Urea Nitrogen 16 mg/dl (7-17); Calcium 9.2 mg/dl (8.4-10.2); Carbon Dioxide 31 mmol/L (22.0-30.0); Estimated Glomerular Filt Rate 76 ml/min (>60); GFR (African American) 92 ML/MIN (>60); Globulin 2.5 g/dL (1.3-3.2); Glucose 71 mg/dl (74-100); Total Protein,Serum 6.4 g/dl (6.3-8.2)
[2019-12-21 19:28] LABS: Lymphocytes % 27 % (10-50); Monocytes % 6 % (2-9); Neutrophils % 67 % (42-76); Platelet Estimate Normal; RBC Morphology Normal; Total Cells Counted 100
== END ==
PROVIDERS: PCP Internal Medicine Adolescent Medicine; Visit Provider Internal Medicine Adolescent Medicine
DX: R92.8 Other abnormal and inconclusive findings on diagnostic imaging of breast (principal); R10.13 Epigastric pain
CPT/HCPCS: 36415; 76641; 77061; 77065; 80053; 85007; 85025; G0279

== ENCOUNTER → 2019-12-24 10:16 | Outpatient (CLI) | payer OTHER, SELFPAY ==
--- NOTE | 2019-12-24 12:30 | CT_ITS ---
PROCEDURE: CT ABDOMEN PELVIS WO/W CON CLINICAL INDICATION: EPIGASTRIC PAIN, LEUKOCYTOSIS COMPARISON: ABDPELWW CT abdomen pelvis wo/w con from 07/13/2018 TECHNIQUE: IV Contrast: 75ML OPTIRAY 350 Oral Contrast 450ml Redicat Axial images obtained with sagittal and coronal reformats. All CT scans at the facility use one or more dose reduction, viz: automated exposure control, ma/kV adjustment per patient size (including targeted exams where dose is matched to indication, i.e. head), or iterative reconstruction technique. FINDINGS: LOWER THORAX: No acute finding ABDOMEN & PELVIS: The liver, gallbladder, spleen, adrenal glands, and pancreas have an unremarkable appearance. Unenhanced images show no evidence of renal or ureteral calculi. No renal mass evident. No intestinal obstruction or free air. No evidence of appendicitis. Surgical clips are present in the left adnexal region. There is some minimal lobularity of the uterus anteriorly. No pelvic mass abnormal fluid collection or focal inflammatory change. No evidence of diverticulitis. No acute bony findings. There is a small umbilical hernia containing fat. IMPRESSION: No acute finding. Mild lobularity of the uterus nonspecific Dictated by: Elroy Samuel MD 12/24/2019 14:03 Electronically signed by Elroy Samuel MD in [facility] 12/24/2019 14:03
== END ==
PROVIDERS: PCP Internal Medicine Adolescent Medicine; Visit Provider Internal Medicine Adolescent Medicine
DX: R10.13 Epigastric pain (principal); D72.829 Elevated white blood cell count, unspecified
CPT/HCPCS: 74178; Q9967

== ENCOUNTER → 2019-12-28 10:32 | Outpatient (CLI) | payer OTHER, SELFPAY ==
[2019-12-28 11:25] LABS: Basophils # 0.1 K/mm3 (0-0.2); Basophils % 0.7 % (0.1-2.0); Eosinophils # 0.2 K/mm3 (0.0-0.4); Eosinophils % 1.6 % (0.1-12.0); Hematocrit 41.4 % (37.0-47.0); Hemoglobin 13.1 g/dL (12.2-16.2); Lymphocytes # 2.9 K/mm3 (0.7-4.5); Lymphocytes % 25.4 % (10-50); Mean Corpuscular HGB Conc 31.7 g/dL (31.8-35.4); Mean Corpuscular Hemoglobin 29.1 pg (27.0-31.2); Mean Corpuscular Volume 91.8 fl (81-99); Mean Platelet Volume 7.4 fl (7.4-10.4); Monocytes # 0.3 K/mm3 (0.1-1.0); Monocytes % 2.6 % (1.7-9.3); Neutrophils % 69.7 % (37.0-80.0); Platelet Count 379 K/mm3 (142-424); Red Blood Count 4.51 M/mm3 (4.20-5.40); Red Cell Distribution Width 13.2 % (11.5-17.5); White Blood Count 11.5 K/mm3 (4.8-10.8)
[2019-12-28 12:13] LABS: Amylase 48 U/L (30-110); Lipase 121 U/L (23-300)
[2019-12-30 10:36] LABS: Peripheral Smear Review Scanned Result
== END ==
PROVIDERS: Visit Provider Nurse Practitioner Family
DX: D72.829 Elevated white blood cell count, unspecified (principal); R10.13 Epigastric pain
CPT/HCPCS: 36415; 82150; 83690; 85025

== ENCOUNTER 2020-03-29 19:34 | Emergency (ER) | payer OTHER, SELFPAY ==
[2020-03-29 19:35] VITALS: BP 139/90; PULSE 97; RESP 19; TEMP 36.7; O2SAT 98; BMI 28.3
--- NOTE | 2020-03-29 20:22 | HMH.EDUTC ---
[facility] [place] Disposition Clinical Impression: Sinusitis Qualifiers: Sinusitis location: unspecified location Chronicity: unspecified Qualified Code(s): J32.9 - Chronic sinusitis, unspecified Disposition: Home, Self-Care Condition on Discharge: Good Instructions: Sinusitis, Sinus Headache, DI for Sinusitis, Amoxicillin and Clavulanic Acid, Prednisone Additional Instructions: Start antibiotic. Sinus infections may take 2-3 days to notice much improvement so be sure to use conservative measures as discussed for symptoms Flonase 2 spray in each nostril daily to help with nasal congestion, sinus an ear pressure/inflammation Lots of Fluids Sleep elevated Humidifer/vaporizer Augmentin can cause GI effects. Probiotics may help to prevent these symptoms or eat yogurt to help coat stomach and lesson upset stomach from medication Follow up with family doctor if no improvement or any worsening of symptoms Return if needed Straight to ER if any life threatening symptoms Over the counter Motrin and/or Tylenol as directed on package for pain and fever Prescriptions: Ondansetron [Zofran 4mg ODT] 4 mg PO Q8HP PRN #9 tab.rapdis PRN Reason: Nausea Transmission Status: Pending to [facility] # Amoxicillin/Potassium Clav [Augmentin 875-125 Tablet] 1 tab PO Q12H 7 Days #14 tab Transmission Status: Pending to [facility] # Fluticasone Propionate [Flonase 50mcg nasal spray 16gm] 1 spr NS DAILY #1 bottle Transmission Status: Pending to [facility] # predniSONE [Prednisone 20mg Tab] 20 mg PO BID 5 Days #10 tab Transmission Status: Pending to [facility] # Referrals: Varghese Grande MD [Primary Care Provider] - As needed Time of Disposition: 20:33 Medical Decision Making - Channing Inquiry Pt receiving controlled substance: No Channing was queried for this patient: No Vital Signs: 03/29/20 19:35 Temperature 98.1 F Temperature Source Oral Pulse Rate [Radial] 97 H Respiratory Rate 19 Blood Pressure [Right Arm] 139/90 Blood Pressure Mean [Right Arm] 106 Blood Pressure Source [Right Arm] Automatic Cuff Blood Pressure Position [Right Arm] Sitting 02 Sat by Pulse Oximetry 98 Oxygen Delivery Method Room Air - Reevaluation(s) Time: 20:33 Reevaluation #1: Patient states that she has taken predniosone before without reaction or complications [facility] [place] HPI - General Stated complaint: Sinus infection,cough.STAHL,vomiting Time Seen by Provider: 03/29/20 20:23 Mode of Arrival: Ambulatory Source of Information: Patient Limitations: No Limitations Description of Symptoms (Recalled from Triage Doc. by RN): Headache and sinus pressure since tuesday HEENT Symptoms (Recalled from RN notes): Yes Resp Symptoms (Recalled from RN notes): No Skin Symptoms (Recalled from RN notes): No MS Symptoms (Recalled from RN notes): No Functional Status (Recalled from RN notes): WNL - History of Present Illness Provider Complaint: Patient states that she thinks she may have a sinus infection States that she has been having sinus pain and pressure for over a week and it has continued to get worse since Tuesday States that she has been having sinus headache, sinus pain and pressure and earlier she vomited x 2 but grandchild had stomach bug earlier in the week. States that this evening she still was having pain and pressure took some Tylenol for the pain and came in to get checked - Related Data Home Medications Medication Instructions Recorded Confirmed levothyroxine 112 mcg tablet 112 mcg PO ONCE 01/27/18 01/22/20 Trazodone HCl 50 mg PO QHS 01/22/20 01/22/20 Venlafaxine HCl [Effexor Xr] 75 mg PO DAILY 01/22/20 01/22/20 Previous Rx's Medication Instructions Recorded Amoxicillin/Potassium Clav 1 tab PO Q12H 7 Days #14 tab 03/29/20 [Augmentin 875-125 Tablet] Fluticasone Propionate [Flonase 1 spr NS DAILY #1 bottle 03/29/20 50mcg nasal spray 16gm] Ondansetron [Zofran 4mg ODT] 4 mg PO Q
[2020-03-29 20:45] VITALS: BP 139/90; PULSE 97; RESP 19; TEMP 36.7; O2SAT 98
== END 2020-03-29 20:48 | disposition home or self-care (01) ==
PROVIDERS: Emergency Provider Nurse Practitioner; PCP Internal Medicine Adolescent Medicine
DX: J32.9 Chronic sinusitis, unspecified (principal); F41.9 Anxiety disorder, unspecified; E03.9 Hypothyroidism, unspecified; F17.210 Nicotine dependence, cigarettes, uncomplicated; Z79.899 Other long term (current) drug therapy
CPT/HCPCS: 99201

== ENCOUNTER → 2020-04-21 10:02 | Outpatient (CLI) | payer OTHER, SELFPAY ==
[2020-04-21 14:18] LABS: Coronavirus 19 IgG Antibody Negative (Negative); Coronavirus 19 IgM Antibody Negative (Negative)
== END ==
PROVIDERS: Visit Provider Surgery
DX: Z01.818 Encounter for other preprocedural examination (principal)
CPT/HCPCS: 36415; 86328

== ENCOUNTER 2020-04-22 07:28 | Day surgery (SDC) | payer OTHER, SELFPAY ==
--- NOTE | 2020-04-18 14:40 | SUR.PREOP ---
04/18/2020 @ 1440--PHONE CALL MADE TO PATIENT. PATIENT UNDERSTANDS THAT LAB WORK AND COVID TESTING NEEDS TO BE COMPLETED @ 1000 ON 04/21/2020. PATIENT UNDERSTANDS IF LAB WORK AND COVID-19 TESTS ARE NOT COMPLETED BY 12PM ON THAT DATE, THE SURGERY SCHEDULED WILL BE CANCELLED AND RESCHEDULED FOR ANOTHER TIME.
[2020-04-21 08:50] VITALS: BMI 28.3
[2020-04-22 07:43] VITALS: BP 116/75; PULSE 95; RESP 18; TEMP 36.6; O2SAT 100
[2020-04-22 07:55] LABS: Urine Pregnancy, HCG Qual. Negative (Negative)
--- NOTE | 2020-04-22 08:28 | HMH.GSHP ---
HPI HPI: Patient is a pleasant 49-year-old female referred by Dr. Grande for upper endoscopy. She had never had problems with heartburn in the past but she states that about 6 months ago she began developing symptoms of dyspepsia and heartburn. Of note, she states that her father had of esophageal cancer. Patient has smoked for the past 7 years. She denies alcohol. She occasionally takes NSAIDs. Plan to proceed with upper endoscopy. Likely even if completely normal plan for biopsies to rule out H. pylori and distal esophageal biopsies for potential Gueavra's. [facility] History I have reviewed the patient's past medical history: Yes Medical History: Reports:: Anxiety Denies:: Cancer, Diabetes Mellitus Type 1, Diabetes Mellitus Type 2, MRSA, Seizures *Have you ever received a pneumonia vaccine?: No *Have you received a flu vaccine this season?: No Other Medical History: Reports: Hypothyroidism, Thyroid Disease Laterality Cases: Left: Arthroscopy Shoulder Other Surgeries: Yes: Colonoscopy, Tubal Ligation, Other Amputation: No Fractures: No - *Social History Educational Level: Attended High School Smoking Status: Current every day smoker Tobacco Type: cigarettes # Packs/Day (cigarettes): 1 #Yrs smoked (if former smoker): 6 Alcohol Intake: never Alcohol Intake Frequency:: holidays/special occasions only Substance Use Type: denies use *Occupational Status:: unemployed Housing: house Household Members: spouse *Travel in the last 8 weeks: None - Psychiatric History Pschychiatric History:: Reports:: Anxiety Family Hx:: Cancer, Coronary Artery Disease Review of Systems - Review of Systems Review of systems:: pertinent systems reviewed and negative unless documented below Meds Home Medications Medication Instructions Recorded Confirmed Type levothyroxine 112 mcg tablet 112 mcg PO ONCE 01/27/18 04/22/20 History Trazodone HCl 50 mg PO QHS 01/22/20 04/22/20 History Venlafaxine HCl [Effexor Xr] 75 mg PO DAILY 01/22/20 04/22/20 History Ondansetron [Zofran 4mg ODT] 4 mg PO Q8HP PRN #9 tab.rapdis 03/29/20 04/22/20 Rx Allergies Allergy/AdvReac Type Severity Reaction Status Date / Time sulfamethoxazole Allergy Unknown she states Verified 04/22/20 07:41 [From [facility]] that down in her ear would itch trimethoprim [From [facility]] Allergy Unknown Verified 04/22/20 07:41 Exam Vital signs and Labs for Last 24 Hours: Temp Pulse Resp BP Pulse Ox 97.9 F 95 H 18 116/75 100 04/22/20 07:43 04/22/20 07:43 04/22/20 07:43 04/22/20 07:43 04/22/20 07:43 Laboratory Results - last 24 hr 04/22/20 07:35: Urine HCG, Qual Negative I & O for Last 24 hours: Intake & Output 04/19/20 04/20/20 04/21/20 04/22/20 11:59 11:59 11:59 11:59 Weight 165 lb - *Routine HEENT Exam Head: Present: normocephalic Eye: Present: EOMI, PERRL ENT: Present: mucous membranes moist - *Routine Neck Exam Present: supple. Absent: lymphadenopathy - *Routine Respiratory Exam Present: CTA bilaterally - *Routine Cardiovascular Exam Present: RRR - *Routine Abdominal Exam Present: soft, normoactive bowel sounds. Absent: tenderness - *Routine Extremities Exam Absent: cyanosis, clubbing, edema - *Routine Skin Exam Present: warm. Absent: rash - *Routine Neurological Exam Present: alert, oriented X3 Results - Results Lab Results Last 24 Hours:: Laboratory Results - last 24 hr 04/22/20 07:35: Urine HCG, Qual Negative Assessment and Plan - Assessment and plan all Dx Assessment and Plan for all problems:: Plan to proceed with upper endoscopy with biopsies
--- NOTE | 2020-04-22 08:32 | HMH.ANESCL ---
[facility] Anesthesia Checklist - Patient Identification Patient Identification: Arm Band, Verbal (Name & ) - Structural Data Admitted From: Home Planned Operative Procedure/s: egd Consent for Planned Operative Procedure(s) Verified: Yes Verified Documents: History and Physical - NPO Status Verified Time NPO: 00:00 - Additional verifications Patient : No Anesthesia Reactions: No Hx Blood Transfusions: No Blood Transfusion Reaction: No Cephalosporin Allergy: No Previous Colonoscopy: No - Cardiovascular Assessment Heart Sounds: S1 & S2 Pulse Strength: Baseline Pulse Rhythm: Regular Peripheral Edema: No - Airway Assessment C-Spine Mobility Assessed: Yes TMJ Mobility Assessed: Yes Dentition: Good Dentition - Neurological Assessment Level of Consciousness: Awake, Alert, Appropriate Hx Seizures: No Numbness or tingling in extremities: No - Anesthesia Plan Anesthesia Risk discussed: Yes Anesthesia Plan: Verified ASA Class: II Anesthesia Type: MAC [facility] History I have reviewed the patient's past medical history: Yes Medical History: Reports:: Anxiety Denies:: Cancer, Diabetes Mellitus Type 1, Diabetes Mellitus Type 2, MRSA, Seizures *Have you ever received a pneumonia vaccine?: No *Have you received a flu vaccine this season?: No Other Medical History: Reports: Hypothyroidism, Thyroid Disease Anesthesia experience/problems:: none Laterality Cases: Left: Arthroscopy Shoulder Other Surgeries: Yes: Colonoscopy, Tubal Ligation, Other Amputation: No Fractures: No - *Social History Educational Level: Attended High School Smoking Status: Current every day smoker Tobacco Type: cigarettes # Packs/Day (cigarettes): 1 #Yrs smoked (if former smoker): 6 Alcohol Intake: never Alcohol Intake Frequency:: holidays/special occasions only Substance Use Type: denies use *Occupational Status:: unemployed Housing: house Household Members: spouse *Travel in the last 8 weeks: None - Psychiatric History Pschychiatric History:: Reports:: Anxiety Family Hx:: Cancer, Coronary Artery Disease
[2020-04-22 08:41] VITALS: O2SAT 97
--- NOTE | 2020-04-22 08:51 | HMH.SCOPE ---
- Procedure: Date: 04/22/20 Procedure Performed:: Esophagogastroduodenoscopy with biopsies Indications:: Patient is a pleasant 49-year-old female referred by Dr. Grande for upper endoscopy. She had never had problems with heartburn in the past but she states that about 6 months ago she began developing symptoms of dyspepsia and heartburn. Of note, she states that her father had of esophageal cancer. Patient has smoked for the past 7 years. She denies alcohol. She occasionally takes NSAIDs. Plan to proceed with upper endoscopy. Likely even if completely normal plan for biopsies to rule out H. pylori and distal esophageal biopsies for potential Guevara's. Performing Provider:: Justin Gagnon MD Referring Provider:: Varghese Grande MD Sedation:: Propofol Procedure:: Patient was taken to endoscopy procedure room. She was positioned in a lateral decubitus position. Adequate intravenous sedation was achieved with anesthesia titration of propofol. Olympus endoscope was inserted via the oropharynx and advanced through the esophagus which appeared grossly normal. Gastroesophageal junction was encountered at approximately 48 cm. Stomach was cannulated and insufflated. Retroflexion revealed possibly beginnings of minuscule sliding hiatal hernia. Gastric lumen appeared relatively unremarkable. Gastric mucosal biopsy was obtained for CLOtest for H. pylori. Biopsy was obtained as well for histopathologic analysis. Pylorus was traversed and the duodenum appeared unremarkable. Endoscope was withdrawn into the distal esophagus and a couple biopsies were obtained at the gastroesophageal junction to rule out Guevara's. A couple of distal esophageal biopsies were obtained. Endoscope was withdrawn. Findings:: Relatively unremarkable upper endoscopy Recommendations:: Follow-up on histopathology and treat as appropriate Complications:: None immediately apparent Estimated blood obtained (mL): 2
[2020-04-22 08:54] VITALS: BP 104/54; PULSE 82; RESP 16; TEMP 36.3; O2SAT 91
[2020-04-22 09:04] VITALS: BP 112/71; PULSE 75; RESP 16; O2SAT 97
[2020-04-22 09:14] VITALS: BP 117/76; PULSE 62; RESP 16; O2SAT 97
[2020-04-22 09:24] VITALS: BP 118/79; PULSE 66; RESP 16; O2SAT 97
== END 2020-04-22 09:24 | disposition home or self-care (01) ==
LOC: OUTP 07:28
PROVIDERS: PCP Internal Medicine Adolescent Medicine; Visit Provider Surgery
PROC: 0DJ08ZZ Inspection of Upper Intestinal Tract, Via Natural or Artificial Opening Endoscopic (ICD-10-PCS; CPT 43235; principal; 2020-04-22 08:30)
DX: F41.9 Anxiety disorder, unspecified (principal); Z80.0 Family history of malignant neoplasm of digestive organs; R12 Heartburn; K44.9 Diaphragmatic hernia without obstruction or gangrene; E03.9 Hypothyroidism, unspecified; Z87.39 Personal history of other diseases of the musculoskeletal system and connective tissue; Z72.0 Tobacco use; Z82.49 Family history of ischemic heart disease and other diseases of the circulatory system; Z79.899 Other long term (current) drug therapy; Z88.2 Allergy status to sulfonamides
CPT/HCPCS: 43239; 81025; 87339

== ENCOUNTER 2020-05-05 14:01 | Emergency (ER) | payer OTHER, SELFPAY ==
[2020-05-05 14:02] VITALS: BP 128/85; PULSE 115; RESP 18; TEMP 36.9; O2SAT 96; BMI 28.3
[2020-05-05 14:32] VITALS: BP 127/77; PULSE 104; RESP 18; O2SAT 99
--- NOTE | 2020-05-05 14:50 | PC.NURSE ---
Pt back from CT
--- NOTE | 2020-05-05 15:16 | PC.NURSE ---
PATIENT PRESENTS TO NURSE'S STATION REQUESTING TO SEE MD. PENALOZA NOTIFIED AT THIS TIME
--- NOTE | 2020-05-05 15:16 | HMH.EDALLER ---
ED Disposition Clinical Impression: Allergic reaction Disposition: Home, Self-Care Condition on Discharge: Good Instructions: DI for Rash Prescriptions: Famotidine 40 mg PO DAILY 20 Days #20 tab Transmission Status: Pending to [facility] # hydrOXYzine HCL [Hydroxyzine HCl] 25 mg PO TID 10 Days #30 tab Transmission Status: Pending to [facility] # methylPREDNISolone [Medrol 4mg tab] 4 mg PO DIRECTED #21 tab Transmission Status: Pending to [facility] # Referrals: Varghese Grande MD [Primary Care Provider] - - Critical Care Critical Care Time: No Attestation: On 05/05/20, the high probability of a clinically significant, sudden or life threatening deterioration of the following system(s) required my full and direct attention, intervention and personal management. The time I documented below is in addition to time spent performing reported procedures but includes the following listed in this critical care notation. Medical Decision Making - Medical Records Medical records reviewed: Yes: I reviewed the patient's medical records. - Channing Inquiry Pt receiving controlled substance: No Vital Signs: 05/05/20 14:02 05/05/20 14:32 Temperature 98.5 F Temperature Source Oral Pulse Rate [Right] 115 H 104 H Respiratory Rate 18 18 Blood Pressure [Right Arm] 128/85 127/77 Blood Pressure Mean [Right Arm] 99 93 Blood Pressure Source [Right Arm] Automatic Cuff 02 Sat by Pulse Oximetry 96 99 Oxygen Delivery Method Room Air Room Air Orders (Tests/Meds): ED MEDICATIONS Discontinued Medications Generic Name Dose Route Start Last Admin Trade Name Aparna PRN Reason Stop Dose Admin Diphenhydramine HCl 50 mg 05/05/20 15:14 Benadryl 50mg/1ml Vial IM 05/05/20 15:15 ONCE ONE Famotidine 40 mg 05/05/20 15:15 Pepcid 20mg Tablet PO 05/05/20 15:16 ONCE ONE Methylprednisolone Sodium Succinate 125 mg 05/05/20 15:14 Solu-Medrol 125mg/2ml Vial IM 05/05/20 15:15 ONCE ONE Allergic React/Insect Bite HPI - General Chief complaint: Allergic Reaction Stated complaint: med reaction Time Seen by Provider: 05/05/20 15:16 Mode of Arrival - ED Triage: Ambulatory Source of Information: Patient Limitations: No Limitations - History of Present Illness MD complaint: allergic reaction Onset (ago): hour(s) Exposure: medication Symptoms: rash, itching, facial swelling Treatment prior to arrival: none Allergies/Adverse Reactions: Allergies Allergy/AdvReac Type Severity Reaction Status Date / Time sulfamethoxazole Allergy Unknown she states Verified 05/05/20 09:44 [From [facility]] that down in her ear would itch trimethoprim [From [facility]] Allergy Unknown Verified 05/05/20 09:44 Previous Allergic Reaction History: none Severity: moderate (This appears to be a reaction to amoxicillin. Patient did state in a previous history she may have been allergic to amoxicillin) - Related Data Home Medications Medication Instructions Recorded Confirmed levothyroxine 112 mcg tablet 112 mcg PO ONCE 01/27/18 05/05/20 Trazodone HCl 50 mg PO QHS 01/22/20 05/05/20 Venlafaxine HCl [Effexor Xr] 75 mg PO DAILY 01/22/20 05/05/20 Previous Rx's Medication Instructions Recorded Ondansetron [Zofran 4mg ODT] 4 mg PO Q8HP PRN #9 tab.rapdis 03/29/20 Famotidine 40 mg PO DAILY 20 Days #20 tab 05/05/20 hydrOXYzine HCL [Hydroxyzine HCl] 25 mg PO TID 10 Days #30 tab 05/05/20 methylPREDNISolone [Medrol 4mg 4 mg PO DIRECTED #21 tab 05/05/20 tab] [facility] History - Hepatitis A Screen Drug use history?: No High risk sexual behaviors?: No History of sexually transmitted infection?: No Currently employed?: No Childcare worker?: No Do you have indoor plumbing?: Yes Do you have electricity?: Yes Attestation statement:: This patient has been screened for Hepatitis A risk factors. I have reviewed the patient's past medical h
[2020-05-05 15:58] VITALS: BP 131/89; PULSE 97; RESP 18; TEMP 36.9; O2SAT 99
== END 2020-05-05 16:05 | disposition home or self-care (01) ==
PROVIDERS: Emergency Provider Family Medicine; PCP Internal Medicine Adolescent Medicine
DX: T78.40XA Allergy, unspecified, initial encounter (principal); F41.9 Anxiety disorder, unspecified; E03.9 Hypothyroidism, unspecified; F17.210 Nicotine dependence, cigarettes, uncomplicated
CPT/HCPCS: 96372; 99282

== ENCOUNTER → 2020-05-23 13:00 | Outpatient (CLI) | payer OTHER, SELFPAY ==
[2020-05-27 05:37] LABS: H. pylori Breath Test Negative (Negative)
== END ==
PROVIDERS: Visit Provider Surgery
DX: R10.11 Right upper quadrant pain (principal)
CPT/HCPCS: 83013

== ENCOUNTER → 2020-06-05 07:51 | Outpatient (CLI) | payer OTHER, SELFPAY ==
--- NOTE | 2020-06-05 07:52 | US_ITS ---
PROCEDURE: US GALLBLADDER CLINICAL INDICATION: Right upper quad pain Epigastric pain COMPARISON: No exams were available for comparison FINDINGS: Pancreas: Unremarkable/Not well seen Liver: Unremarkable. There is appropriate direction of blood flow within a non dilated portal vein. Right kidney: Unremarkable appearing. No hydronephrosis. Gallbladder: No stones are evident. There is no gallbladder wall thickening. Common duct is normal in diameter. IMPRESSION: Negative gallbladder ultrasound. No stones evident. Dictated b Elroy Samuel MD 06/05/2020 16:17 Elroy Samuel MD in [place] 06/05/2020 16:17
== END ==
PROVIDERS: PCP Internal Medicine Adolescent Medicine; Visit Provider Surgery
DX: R10.11 Right upper quadrant pain (principal)
CPT/HCPCS: 76705

== ENCOUNTER → 2020-06-24 10:19 | Outpatient (CLI) | payer OTHER, SELFPAY ==
--- NOTE | 2020-06-24 10:19 | NM_ITS ---
PROCEDURE: NM HEPATOBILIARY W PHARM CLINICAL INDICATION: right upper quad pain COMPARISON: US US GALLBLADDER from 06/05/2020 TECHNIQUE: DOSE: 8.24 mCi technetium Choletec and 1.6 mcg of CCK FINDINGS: Homogeneous activity is present within the hepatic parenchyma. Activity is present in the gallbladder by 10 minutes. Activity is present in the small bowel by 15 minutes. The gallbladder ejection fraction is calculated to be 90 percent. CCK-The patient did not report pain or other symptoms during CCK infusion. IMPRESSION: Unremarkable a better biliary scan. No evidence common or cystic duct obstruction with normal gallbladder ejection fraction Dictated by: Elroy Samuel MD 06/24/2020 12:48 Elroy Samuel MD in [place] 06/24/2020 12:48
--- NOTE | 2020-06-24 10:36 | HMH.ITSHM ---
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 []THYROID MED VENSAFLAX SLEEPING MED
== END ==
PROVIDERS: PCP Internal Medicine Adolescent Medicine; Visit Provider Surgery
DX: R10.11 Right upper quadrant pain (principal)
CPT/HCPCS: 78227; A9537; J2805

== ENCOUNTER → 2020-07-01 09:21 | Outpatient (CLI) | payer OTHER, SELFPAY ==
[2020-07-01 09:23] LABS: Adenovirus F 40/41, stool Not Detected (NotDetected); Astrovirus Not Detected (NotDetected); Campylobacter Not Detected (NotDetected); Clostridium Difficile A/B, PCR Not Detected (NotDetected); Cryptosporidium Not Detected (NotDetected); Cyclospora Cayetanesis Not Detected (NotDetected); Entamoeba histolytica Not Detected (NotDetected); Enteroaggregative E coli Not Detected (NotDetected); Enteropathogenic E coli Not Detected (NotDetected); Enterotoxigenic E coli Not Detected (NotDetected); Giardia lamblia Not Detected (NotDetected); Norovirus Not Detected (NotDetected); Plesimonas Shigalloides, PCR Not Detected (NotDetected); Rotavirus A Not Detected (NotDetected); Salmonella, PCR Not Detected (NotDetected); Sapovirus Not Detected (NotDetected); Shiga-like toxin E coli Not Detected (NotDetected); Shigella Enterovasive E coli Not Detected (NotDetected); Vibrio Cholerae Not Detected (NotDetected); Vibrio, PCR Not Detected (NotDetected); Yersinia Entercolitica, PCR Not Detected (NotDetected)
== END ==
PROVIDERS: Visit Provider Surgery
DX: R19.7 Diarrhea, unspecified (principal)
CPT/HCPCS: 87506

== ENCOUNTER 2020-08-10 15:41 | Emergency (ER) | payer OTHER, SELFPAY ==
[2020-08-10 15:56] VITALS: BP 153/90; PULSE 116; RESP 20; TEMP 36.9; O2SAT 96; BMI 30.2
--- NOTE | 2020-08-10 16:23 | HMH.EDUTC ---
[facility] [place] Clinical Impression: Sinusitis Qualifiers: Sinusitis location: unspecified location Chronicity: acute Recurrence: non-recurrent Qualified Code(s): J01.90 - Acute sinusitis, unspecified Disposition: Home, Self-Care Condition on Discharge: Good Instructions: Sinusitis, DI for Sinusitis Additional Instructions: Drink plenty of fluids. Take tylenol or ibuprofen for pain or fever. Take the medications as directed. Follow up with your regular doctor. GO TO THE ER FOR ANY WORSENING SYMPTOMS Prescriptions: Brompheniramine/Pseudoephed/Dm [Bromfed Dm Cough Syrup] 5 ml PO Q6HP PRN #240 syrup PRN Reason: Cough Transmission Status: Pending to [facility] # predniSONE [Prednisone 20mg Tab] 20 mg PO BID 4 Days #8 tab Transmission Status: Pending to [facility] # Azithromycin [Z-Jimi 250mg Tab*] 250 mg PO UD DOSE PK #6 tab Transmission Status: Pending to [facility] # Referrals: Varghese Grande MD [Primary Care Provider] - Time of Disposition: 16:44 Medical Decision Making - Medical Records Medical records reviewed: No: I reviewed the patient's medical records. - Channing Inquiry Pt receiving controlled substance: No Vital Signs: 08/10/20 15:56 Temperature 98.5 F Temperature Source Oral Pulse Rate [Right Brachial] 116 H Respiratory Rate 20 Blood Pressure [Left Arm] 153/90 H Blood Pressure Mean [Left Arm] 111 Blood Pressure Source [Left Arm] Automatic Cuff Blood Pressure Position [Left Arm] Sitting 02 Sat by Pulse Oximetry 96 Oxygen Delivery Method Room Air [facility] [place] HPI - General Stated complaint: possible sinus infection Time Seen by Provider: 08/10/20 16:23 Mode of Arrival: Ambulatory Source of Information: Patient Limitations: No Limitations Description of Symptoms (Recalled from Triage Doc. by RN): PATIENT C/O NAUSEA, HEADACHE, COUGH, CHILLS, AND CONGESTION X 9 DAYS. DENIES FEVER OR ANY KNOWN SICK CONTACTS HEENT Symptoms (Recalled from RN notes): Yes Resp Symptoms (Recalled from RN notes): No Skin Symptoms (Recalled from RN notes): No MS Symptoms (Recalled from RN notes): No Functional Status (Recalled from RN notes): WNL - History of Present Illness Provider Complaint: She c/o 9 days of sinus congestion. She has a history of getting sinus infections frequently. - Related Data Home Medications Medication Instructions Recorded Confirmed levothyroxine 112 mcg tablet 112 mcg PO ONCE 01/27/18 06/30/20 Trazodone HCl 50 mg PO QHS 01/22/20 06/30/20 Venlafaxine HCl [Effexor Xr] 75 mg PO DAILY 01/22/20 06/30/20 Previous Rx's Medication Instructions Recorded Famotidine 40 mg PO DAILY 20 Days #20 tab 05/05/20 hydrOXYzine HCL [Hydroxyzine HCl] 25 mg PO TID 10 Days #30 tab 05/05/20 omeprazole 40 mg capsule,delayed 40 mg PO DAILY #30 cap 06/30/20 release Azithromycin [Z-Jimi 250mg Tab*] 250 mg PO UD DOSE PK #6 tab 08/10/20 Brompheniramine/Pseudoephed/Dm 5 ml PO Q6HP PRN #240 syrup 08/10/20 [Bromfed Dm Cough Syrup] predniSONE [Prednisone 20mg 20 mg PO BID 4 Days #8 tab 08/10/20 Tab] Allergies Allergy/AdvReac Type Severity Reaction Status Date / Time amoxicillin Allergy Severe Swelling Verified 06/30/20 09:12 of Lip/Tongue/Throat sulfamethoxazole Allergy Unknown she states Verified 06/30/20 09:12 [From [facility]] that down in her ear would itch trimethoprim [From [facility]] Allergy Unknown Verified 06/30/20 09:12 - Worker's Comp Is this a Worker's Comp case?: No [facility] History - Hepatitis A Screen Drug use history?: No High risk sexual behaviors?: No History of sexually transmitted infection?: No Currently employed?: No Childcare worker?: No Do you have indoor plumbing?: Yes Do you have electricity?: Yes Attestation statement:: This patient has been screened for Hepatitis A risk factors. I have reviewed the patient's past medical history: Yes Medical History: Reports:: Anxiety
[2020-08-10 16:50] VITALS: BP 153/90; PULSE 116; RESP 20; TEMP 36.9; O2SAT 96
== END 2020-08-10 16:57 | disposition home or self-care (01) ==
PROVIDERS: Emergency Provider Nurse Practitioner Family; PCP Internal Medicine Adolescent Medicine
DX: J01.90 Acute sinusitis, unspecified (principal); F17.210 Nicotine dependence, cigarettes, uncomplicated; F41.9 Anxiety disorder, unspecified; E03.9 Hypothyroidism, unspecified
CPT/HCPCS: 99201

== ENCOUNTER 2020-10-26 10:12 | Emergency (ER) | payer OTHER, SELFPAY ==
[2020-10-26 10:20] VITALS: BP 160/88; PULSE 120; RESP 21; TEMP 36.6; O2SAT 98
--- NOTE | 2020-10-26 10:25 | HMH.EDUTC ---
[facility] [place] Disposition Clinical Impression: Exposure to COVID-19 virus, Tapeworm infection Disposition: Home, Self-Care Condition on Discharge: Good Instructions: Preventing the Spread of Coronavirus Discharge Instructions Additional Instructions: You have been tested for COVID19. Please isolate yourself as if you are positive until test results received. Follow up with Dr Grande if not improving Prescriptions: Ondansetron [Ondansetron Odt 8mg Tab] 8 mg PO TID PRN 10 Days #30 tab PRN Reason: Nausea Transmission Status: Pending to [facility] # praziquanteL [Praziquantel] 600 mg PO Q8H 1 Days #3 tab Transmission Status: Pending to [facility] # Referrals: Varghese Grande MD [Primary Care Provider] - Time of Disposition: 10:39 Medical Decision Making - Channing Inquiry Pt receiving controlled substance: No Vital Signs: 10/26/20 10:20 Temperature 97.9 F Temperature Source Oral Pulse Rate [Radial] 120 H Respiratory Rate 21 Blood Pressure [Right Arm] 160/88 H Blood Pressure Mean [Right Arm] 112 Blood Pressure Source [Right Arm] Automatic Cuff Blood Pressure Position [Right Arm] Sitting 02 Sat by Pulse Oximetry 98 Oxygen Delivery Method Room Air - Lab Data Lab results reviewed: Yes: I reviewed the patient's lab results. [facility] [place] HPI - General Stated complaint: stomach pain, sore throat, headache Time Seen by Provider: 10/26/20 10:26 Mode of Arrival: Ambulatory Source of Information: Patient Limitations: No Limitations Description of Symptoms (Recalled from Triage Doc. by RN): stomach ache, sore throat, and STAHL since . States she also had her grand daughter and later found out she had worms. States she took OTC worm medication and doesn't know if she has worm in her stomach or not. HEENT Symptoms (Recalled from RN notes): Yes Resp Symptoms (Recalled from RN notes): No Skin Symptoms (Recalled from RN notes): No MS Symptoms (Recalled from RN notes): No Functional Status (Recalled from RN notes): wnl - History of Present Illness Provider Complaint: Headache, sore throat, stomach pain X 4 days. No fever. Mild chills, body aches. No vomiting or diarrhea. Stomach feels like it is cramping. No loss of taste or smell. No cough. She works at [employer] and states numerous employees have had COVID19. She also states that she recently treated her cat for worms and then her granddaughter also had to be treated for worms. She took OTC meds for pinworms but describes her granddaughters worms as long and skinny. Her cat had tapeworms. Onset (ago): day(s) (4) Location: abdomen Relieving factors: none Exacerbating factors: none Associated symptoms: headaches, malaise Treatments prior to arrival: none - Related Data Home Medications Medication Instructions Recorded Confirmed levothyroxine 112 mcg tablet 112 mcg PO ONCE 01/27/18 06/30/20 Trazodone HCl 50 mg PO QHS 01/22/20 06/30/20 Venlafaxine HCl [Effexor Xr] 75 mg PO DAILY 01/22/20 06/30/20 Previous Rx's Medication Instructions Recorded Famotidine 40 mg PO DAILY 20 Days #20 tab 05/05/20 hydrOXYzine HCL [Hydroxyzine HCl] 25 mg PO TID 10 Days #30 tab 05/05/20 omeprazole 40 mg capsule,delayed 40 mg PO DAILY #30 cap 06/30/20 release Azithromycin [Z-Jimi 250mg Tab*] 250 mg PO UD DOSE PK #6 tab 08/10/20 Brompheniramine/Pseudoephed/Dm 5 ml PO Q6HP PRN #240 syrup 08/10/20 [Bromfed Dm Cough Syrup] predniSONE [Prednisone 20mg 20 mg PO BID 4 Days #8 tab 08/10/20 Tab] Ondansetron [Ondansetron Odt 8mg 8 mg PO TID PRN 10 Days #30 tab 10/26/20 Tab] praziquanteL [Praziquantel] 600 mg PO Q8H 1 Days #3 tab 10/26/20 Allergies Allergy/AdvReac Type Severity Reaction Status Date / Time amoxicillin Allergy Severe Swelling Verified 06/30/20 09:12 of Lip/Tongue/Throat sulfamethoxazole Allergy Unknown she states Verified 06/30/20 09:12 [From [facility]] that down in her ear would itch trimethopr
[2020-10-26 10:41] VITALS: BP 160/88; PULSE 120; RESP 21; TEMP 36.6; O2SAT 98
[2020-10-26 16:57] LABS: UTC Strep Screen (Rapid) Negative (Negative)
== END 2020-10-26 10:43 | disposition home or self-care (01) ==
PROVIDERS: Emergency Provider Physician Assistant; PCP Internal Medicine Adolescent Medicine
DX: Z20.828 Contact with and (suspected) exposure to other viral communicable diseases (principal); B71.9 Cestode infection, unspecified; E03.9 Hypothyroidism, unspecified; F41.9 Anxiety disorder, unspecified; F17.210 Nicotine dependence, cigarettes, uncomplicated; Z79.899 Other long term (current) drug therapy; Z88.1 Allergy status to other antibiotic agents; Z88.2 Allergy status to sulfonamides
CPT/HCPCS: 87880; 99202; U0003

== ENCOUNTER 2020-12-06 10:00 | Emergency (ER) | payer OTHER, SELFPAY ==
[2020-12-06 10:00] VITALS: BP 151/89; PULSE 84; RESP 18; TEMP 37; O2SAT 99; BMI 39.7
--- NOTE | 2020-12-06 10:27 | HMH.EDUTC ---
[facility] [place] Disposition Clinical Impression: Exposure to COVID-19 virus Sinusitis Qualifiers: Sinusitis location: maxillary Chronicity: acute Recurrence: non-recurrent Qualified Code(s): J01.00 - Acute maxillary sinusitis, unspecified Disposition: Home, Self-Care Condition on Discharge: Good Instructions: DI for Sinusitis Additional Instructions: You have been tested for COVID19. Please isolate yourself as if you are positive until test results received. Prescriptions: predniSONE [Prednisone 20mg Tab] 20 mg PO BID 5 Days #10 tab Transmission Status: Pending to [facility] # Azithromycin [Z-Jimi 250mg Tab] 250 mg PO DIRECTED #6 tab Transmission Status: Pending to [facility] # Referrals: Varghese Grande MD [Primary Care Provider] - Time of Disposition: 10:34 Medical Decision Making - Channing Inquiry Pt receiving controlled substance: No Vital Signs: 12/06/20 10:00 Temperature 98.6 F Temperature Source Oral Pulse Rate [Right Brachial] 84 Respiratory Rate 18 Blood Pressure [Right Arm] 151/89 H Blood Pressure Mean [Right Arm] 109 Blood Pressure Source [Right Arm] Automatic Cuff Blood Pressure Position [Right Arm] Sitting 02 Sat by Pulse Oximetry 99 Oxygen Delivery Method Room Air Orders (Tests/Meds): ORDERS Category Date Time Status Covid-19 Nasal PCR ([facility]) Routine Lab 12/06/20 10:12 Ordered [facility] [place] HPI - General Stated complaint: possible sinus infection Time Seen by Provider: 12/06/20 10:29 Mode of Arrival: Ambulatory Source of Information: Patient Limitations: No Limitations Description of Symptoms (Recalled from Triage Doc. by RN): PATIENT C/O SINUS PAIN AND PRESSURE X 4 DAYS HEENT Symptoms (Recalled from RN notes): Yes Resp Symptoms (Recalled from RN notes): No Skin Symptoms (Recalled from RN notes): No MS Symptoms (Recalled from RN notes): No Functional Status (Recalled from RN notes): WNL - History of Present Illness Provider Complaint: Sinus pain and pressure X 3-4 days. No fever but has body aches and chills. Nasal congestion unrelieved by Sudafed. Has been exposed to COVID19. No loss of taste or smell. No N/V/D. Onset (ago): day(s) (4) Relieving factors: none Exacerbating factors: none Associated symptoms: denies other symptoms Treatments prior to arrival: other (Sudafed) - Related Data Home Medications Medication Instructions Recorded Confirmed levothyroxine 112 mcg tablet 112 mcg PO ONCE 01/27/18 06/30/20 Trazodone HCl 50 mg PO QHS 01/22/20 06/30/20 Venlafaxine HCl [Effexor Xr] 75 mg PO DAILY 01/22/20 06/30/20 Previous Rx's Medication Instructions Recorded Famotidine 40 mg PO DAILY 20 Days #20 tab 05/05/20 hydrOXYzine HCL [Hydroxyzine HCl] 25 mg PO TID 10 Days #30 tab 05/05/20 omeprazole 40 mg capsule,delayed 40 mg PO DAILY #30 cap 06/30/20 release Azithromycin [Z-Jimi 250mg Tab*] 250 mg PO UD DOSE PK #6 tab 08/10/20 Brompheniramine/Pseudoephed/Dm 5 ml PO Q6HP PRN #240 syrup 08/10/20 [Bromfed Dm Cough Syrup] predniSONE [Prednisone 20mg 20 mg PO BID 4 Days #8 tab 08/10/20 Tab] Ondansetron [Ondansetron Odt 8mg 8 mg PO TID PRN 10 Days #30 tab 10/26/20 Tab] praziquanteL [Praziquantel] 600 mg PO Q8H 1 Days #3 tab 10/26/20 Albendazole 400 mg PO DAILY 2 Days #2 tab 10/27/20 Albendazole 400 mg PO DAILY 2 Days #4 tab 10/27/20 Azithromycin [Z-Jimi 250mg Tab] 250 mg PO DIRECTED #6 tab 12/06/20 predniSONE [Prednisone 20mg 20 mg PO BID 5 Days #10 tab 12/06/20 Tab] Allergies Allergy/AdvReac Type Severity Reaction Status Date / Time amoxicillin Allergy Severe Swelling Verified 06/30/20 09:12 of Lip/Tongue/Throat sulfamethoxazole Allergy Unknown she states Verified 06/30/20 09:12 [From [facility]] that down in her ear would itch trimethoprim [From [facility]] Allergy Unknown Verified 06/30/20 09:12 Penicillins Allergy Verified 12/06/20 10:24 - Worker's Comp Is this a Worke
[2020-12-06 10:45] VITALS: BP 151/89; PULSE 84; RESP 18; TEMP 37; O2SAT 99
== END 2020-12-06 10:48 | disposition home or self-care (01) ==
PROVIDERS: Emergency Provider Physician Assistant; PCP Internal Medicine Adolescent Medicine
DX: Z20.822 Contact with and (suspected) exposure to COVID-19 (principal); J01.00 Acute maxillary sinusitis, unspecified; F41.9 Anxiety disorder, unspecified; E03.9 Hypothyroidism, unspecified; F17.210 Nicotine dependence, cigarettes, uncomplicated; Z79.899 Other long term (current) drug therapy
CPT/HCPCS: 99202; G0463; U0003

== ENCOUNTER 2021-01-01 04:30 | Emergency (ER) | payer OTHER, SELFPAY ==
[2021-01-01 04:32] VITALS: BP 139/94; PULSE 127; RESP 20; TEMP 36.9; O2SAT 98; BMI 28.6
[2021-01-01 04:58] LABS: Chloride 104 mmol/L (98-107); Potassium 4.4 mmoL/L (3.5-5.1); Sodium 138 mmol/L (136-145)
[2021-01-01 05:00] VITALS: BP 115/68; PULSE 100; RESP 18; O2SAT 98
[2021-01-01 05:01] LABS: Alanine Aminotransferase 33 U/L (12-78); Albumin Level 4.6 g/dl (3.5-5.0); Albumin/Globulin Ratio 1.4 (1.1-1.8); Alkaline Phosphatase 110 U/L (38-126); Anion Gap 11.4 mEq/L (5-15); Aspartate Amino Transferase 26 U/L (14-36); Bilirubin,Total 0.5 mg/dl (0.2-1.3); Blood Urea Nitrogen 13 mg/dl (7-17); Calcium 10.4 mg/dl (8.4-10.2); Carbon Dioxide 27 mmol/L (22.0-30.0); Creatinine Clearance Estimated 101 mL/min (50-200); Estimated Glomerular Filt Rate 76 ml/min (>60); GFR (African American) 92 ML/MIN (>60); Globulin 3.4 g/dL (1.3-3.2); Glucose 124 mg/dl (74-100)
[2021-01-01 05:05] LABS: Basophils % 0.2 % (0.1-2.0); Eosinophils # 0.2 K/mm3 (0.0-0.4); Eosinophils % 1.1 % (0.1-12.0); Hematocrit 45.4 % (37.0-47.0); Hemoglobin 14.7 g/dL (12.2-16.2); Lymphocytes # 3.8 K/mm3 (0.7-4.5); Lymphocytes % 20.2 % (10-50); Mean Corpuscular HGB Conc 32.4 g/dL (31.8-35.4); Mean Corpuscular Hemoglobin 28.6 pg (27.0-31.2); Mean Corpuscular Volume 88.2 fl (81-99); Mean Platelet Volume 7.8 fl (7.4-10.4); Monocytes # 0.4 K/mm3 (0.1-1.0); Monocytes % 2.3 % (1.7-9.3); Neutrophils # 14.4 K/mm3 (1.8-7.8); Neutrophils % 76.2 % (37.0-80.0); Platelet Count 415 K/mm3 (142-424); Red Blood Count 5.15 M/mm3 (4.20-5.40); Red Cell Distribution Width 14.2 % (11.5-17.5); White Blood Count 18.9 K/mm3 (4.8-10.8)
--- NOTE | 2021-01-01 05:13 | HMH.EDALLER ---
ED Disposition Clinical Impression: Allergic reaction Qualifiers: Encounter type: subsequent encounter Qualified Code(s): T78.40XD - Allergy, unspecified, subsequent encounter Disposition: Home, Self-Care Condition on Discharge: Good Instructions: DI for General Allergic Reactions Additional Instructions: use meds and see pcp for follow up Prescriptions: levoFLOXacin [Levaquin 500mg tab] 500 mg PO DAILY #7 tab Transmission Status: Pending to [facility] # predniSONE [Prednisone 20mg Tab] 20 mg PO BID #10 tab Transmission Status: Pending to [facility] # Referrals: Varghese Grande MD [Primary Care Provider] - - Critical Care Critical Care Time: No Attestation: On 01/01/21, the high probability of a clinically significant, sudden or life threatening deterioration of the following system(s) required my full and direct attention, intervention and personal management. The time I documented below is in addition to time spent performing reported procedures but includes the following listed in this critical care notation. Medical Decision Making - Medical Records Medical records reviewed: Yes: I reviewed the patient's medical records. - Channing Inquiry Pt receiving controlled substance: No Vital Signs: 01/01/21 04:32 01/01/21 05:00 Temperature 98.5 F Temperature Source Oral Pulse Rate [Right Radial] 127 H 100 H Respiratory Rate 20 18 Blood Pressure [Right Arm] 139/94 H 115/68 Blood Pressure Mean [Right Arm] 109 83 Blood Pressure Source [Right Arm] Automatic Cuff Automatic Cuff Blood Pressure Position [Right Arm] Supine Supine 02 Sat by Pulse Oximetry 98 98 Oxygen Delivery Method Room Air Room Air - Lab Data Lab results reviewed: Yes: I reviewed the patient's lab results. Orders (Tests/Meds): ED MEDICATIONS Generic Name Dose Route Start Last Admin Trade Name Freq PRN Reason Stop Dose Admin Sodium Chloride 1,000 mls @ 999 mls/hr 01/01/21 05:00 01/01/21 04:50 Sod Chlor 0.9% 1000ml Bag IV 01/01/21 06:00 999 mls/hr .Q1H1M PAYAL Administration Sodium Chloride 8 ml 01/01/21 04:47 Sodium Chloride 0.9% 10ml Vial IV 01/31/21 04:46 NEEDED PRN dilute pepcid Discontinued Medications Generic Name Dose Route Start Last Admin Trade Name Aparna PRN Reason Stop Dose Admin Diphenhydramine HCl 50 mg 01/01/21 04:47 01/01/21 04:50 Diphenhydramine 50mg/Ml Vial IV 01/01/21 04:48 50 mg ONCE ONE Administration Famotidine 20 mg 01/01/21 04:47 01/01/21 04:50 Famotidine 20mg/2ml Vial IV 01/01/21 04:48 20 mg ONCE ONE Administration Ketorolac Tromethamine 30 mg 01/01/21 04:47 01/01/21 04:50 Ketorolac 30mg/Ml Vial IV 01/01/21 04:48 30 mg ONCE ONE Administration Methylprednisolone Sodium Succinate 125 mg 01/01/21 04:47 01/01/21 04:50 Methylprednisolone Sod Succ 125mg Vial IV 01/01/21 04:48 125 mg ONCE ONE Administration ORDERS Category Date Time Status CMP [Comprehensive Metabolic Panel] Stat Lab 01/01/21 04:40 Received Complete Blood Count Auto Diff Stat Lab 01/01/21 04:40 Received Urinalysis and Microscopic Stat Lab 01/01/21 04:47 Ordered Urine , HCG Qual. Stat Lab 01/01/21 04:47 Ordered Medical Decision Narrative: pt is improved after meds - reviewed allergic meds Allergic React/Insect Bite HPI - General Chief complaint: Allergic Reaction Stated complaint: Allergic reaction to antibiotic Time Seen by Provider: 01/01/21 04:45 Mode of Arrival - ED Triage: Ambulatory Source of Information: Patient, Medical Record Limitations: No Limitations - History of Present Illness HPI narrative: has recent allergic reaction to pen being treated for sinus infection MD complaint: allergic reaction Onset (ago): hour(s) Exposure: medication Symptoms: rash, facial swelling Allergies/Adverse Reactions: Allergies Allergy/AdvReac Type Severity Reaction Status Date / Time amoxic
[2021-01-01 05:14] LABS: MANUAL DIFFERENTIAL MANUAL DIFFERENTIAL (MANUAL DIFF)
[2021-01-01 05:26] VITALS: BP 116/73; PULSE 94; RESP 18; TEMP 36.7; O2SAT 96
[2021-01-01 05:56] LABS: Lymphocytes % 31 % (10-50); Monocytes % 2 % (2-9); Neutrophils % 67 % (42-76); Total Cells Counted 100
[2021-01-01 05:57] LABS: Platelet Estimate Normal; Stomatocytes 1+
== END 2021-01-01 06:02 | disposition home or self-care (01) ==
PROVIDERS: Emergency Provider Emergency Medicine; PCP Internal Medicine Adolescent Medicine
DX: L27.1 Localized skin eruption due to drugs and medicaments taken internally (principal); T36.0X5A Adverse effect of penicillins, initial encounter; Y92.019 Unspecified place in single-family (private) house as the place of occurrence of the external cause; R03.0 Elevated blood-pressure reading, without diagnosis of hypertension; Z88.0 Allergy status to penicillin; Z88.2 Allergy status to sulfonamides; F41.9 Anxiety disorder, unspecified; E03.9 Hypothyroidism, unspecified; F17.210 Nicotine dependence, cigarettes, uncomplicated
CPT/HCPCS: 80053; 85007; 85025; 96365; 96375; 99283

== ENCOUNTER 2021-06-19 12:19 | Emergency (ER) | payer BC, SELFPAY ==
[2021-06-19 12:20] VITALS: BP 152/91; PULSE 93; RESP 16; TEMP 36.9; O2SAT 98; BMI 29.2
--- NOTE | 2021-06-19 12:52 | HMH.EDUTC ---
[facility] [place] Disposition Clinical Impression: Strep throat Disposition: Home, Self-Care Condition on Discharge: Good Instructions: Strep Throat (Alternative Therapy), Strep Throat, DI for Strep Throat, DI for COVID-19 (Suspected or Confirmed ), Coronavirus Disease 2019, Preventing the Spread of Coronavirus Discharge Instructions Additional Instructions: *Monitor Temp, Over the counter Motrin or Tylenol as directed/as needed Tylenol every 4 hours and Motrin every 6 hours (as long as your family doctor has told you that you can take it) for fever or pain. and straight to ER if unable to lower temp less than 101.0 after medication given *Warm salt water gargles may help to soothe the throat *Throat Lozenges *Warm fluids like tea with honey may help to soothe the throat *Sleep elevated *Humidifier/Vaporizer Take medication as prescribed Follow up IMMEDIATELY for new or worsening symptoms or no Noticeable improvement over the next 48-72 hours. 911 for difficulty breathing or swallowing You were tested for today for COVID19 your test result should be back in the next 24-48 hours, you may call to the [facility] to see if your test results are back in the next 48 hours [phone] [facility] hours are 9am-9pm You was given a handout with instructions for Self Quarantine and Self isolation for while you wait on test results and what to do if they are positive If you are positive the Health Dept will be contacting you also Make sure to take your Vitamins Vit. C Vit D and Zinc if you can take them Prescriptions: Benzonatate [Tessalon Perle 100mg Cap*] 100 mg PO TID PRN #30 cap PRN Reason: Cough Transmission Status: Received by [facility] # Azithromycin [Z-Jimi 250mg Tab] 250 mg PO DIRECTED #6 tab Transmission Status: Received by [facility] # Referrals: Varghese Grande MD [Primary Care Provider] - As needed Forms: Work/School Release Time of Disposition: 13:00 Medical Decision Making - Channing Inquiry Pt receiving controlled substance: No Channing was queried for this patient: No Vital Signs: 06/19/21 12:20 06/19/21 13:32 Temperature 98.5 F 98.5 F Temperature Source Oral Pulse Rate 93 H Pulse Rate [Right Brachial] 93 H Respiratory Rate 16 16 Blood Pressure 152/91 H Blood Pressure [Right Arm] 152/91 H Blood Pressure Mean [Right Arm] 111 Blood Pressure Source [Right Arm] Automatic Cuff Blood Pressure Position [Right Arm] Sitting 02 Sat by Pulse Oximetry 98 Oxygen Delivery Method Room Air - Lab Data Lab results reviewed: Yes: I reviewed the patient's lab results. Lab Results 06/19/21 12:48: Strep Scn Rapid Clinic Positive A Orders (Tests/Meds): ORDERS Category Date Time Status Full Resp Panel w/COVID ([facility]) Routine Lab 06/19/21 12:25 Received Medical Decision Narrative: Patient reports that she has taken Azithromycin in the past without complications or reactions [facility] [place] HPI - General Stated complaint: covid symptoms/test Time Seen by Provider: 06/19/21 12:52 Mode of Arrival: Ambulatory Source of Information: Patient Limitations: No Limitations Description of Symptoms (Recalled from Triage Doc. by RN): PATIENT C/O HEADACHE, SORE THROAT, NAUSEA, AND BODY ACHES X 2 DAYS HEENT Symptoms (Recalled from RN notes): Yes Resp Symptoms (Recalled from RN notes): No Skin Symptoms (Recalled from RN notes): No MS Symptoms (Recalled from RN notes): No Functional Status (Recalled from RN notes): WNL - History of Present Illness Provider Complaint: Patient state that several people at work has recently tested positive for COVID and she has been around someone that had strep State that today she was having body aches, chills, sore throat, nausea and body aches State that she wanted to come in and get checked and tested for COVID - Related Data Home Medications Medication Instructions Recorded Confirmed levothyroxine 112 mcg tablet 112 mcg PO ONCE 01/27/18 01/01/21 Trazodone HC
[2021-06-19 12:54] LABS: UTC Strep Screen (Rapid) Positive (Negative)
[2021-06-19 13:06] LABS: Adenovirus,PCR Not Detected (NotDetected); Bordetella Pertussis Not Detected (NotDetected); Chlamydophila Pneumoniae, PCR Not Detected (NotDetected); Coronavirus 229E Not Detected (NotDetected); Coronavirus NL63 Not Detected (NotDetected); Coronavirus OC43 Not Detected (NotDetected); Coronovirus HKU1,PCR Not Detected (NotDetected); Human Metapneumovirus Not Detected (NotDetected); Influenza A, PCR Not Detected (NotDetected); Influenza AH1, 2009 Not Detected (NotDetected); Influenza AH1, PCR Not Detected (NotDetected); Influenza AH3,PCR Not Detected (NotDetected); Influenza B, PCR Not Detected (NotDetected); Mycoplasma Pneumoniae, PCR Not Detected (NotDetected); Parainfluenza 1, PCR Not Detected (NotDetected); Parainfluenza 2, PCR Not Detected (NotDetected); Parainfluenza 3, PCR Not Detected (NotDetected); Parainfluenza 4, PCR Not Detected (NotDetected); Respiratory Syncytial Virus Not Detected (NotDetected); Rhinovirus/Enterovirus Not Detected (NotDetected)
[2021-06-19 13:32] VITALS: BP 152/91; PULSE 93; RESP 16; TEMP 36.9; O2SAT 98
[2021-06-20 09:24] LABS: Coronavirus 19, PCR Detected (NotDetected)
--- NOTE | 2021-06-20 10:37 | PC.NURSE ---
PATIENT NOTIFIED OF POSITIVE COVID TEST AT THIS TIME
== END 2021-06-19 14:00 | disposition home or self-care (01) ==
PROVIDERS: Emergency Provider Nurse Practitioner; PCP Internal Medicine Adolescent Medicine
DX: U07.1 COVID-19 (principal); J02.0 Streptococcal pharyngitis; F41.9 Anxiety disorder, unspecified; E03.9 Hypothyroidism, unspecified; F17.210 Nicotine dependence, cigarettes, uncomplicated; Z79.899 Other long term (current) drug therapy
CPT/HCPCS: 87581; 87633; 87798; 87880; 99203; G0463

== ENCOUNTER 2021-11-08 11:01 | Emergency (ER) | payer OTHER, SELFPAY ==
[2021-11-08 12:00] VITALS: BP 145/90; PULSE 91; RESP 19; TEMP 37.1; O2SAT 97; BMI 30.1
--- NOTE | 2021-11-08 12:25 | HMH.EDUTC ---
[facility] [place] Clinical Impression: Strep throat Disposition: Home, Self-Care Condition on Discharge: Good Instructions: DI for Strep Throat Additional Instructions: Start antibiotics today be sure to take it as ordered with the full length of time although you should start feeling better in 24-48 hours. Change toothbrush and toothpaste 24-48 hours after starting antibiotics Tylenol or Motrin as needed for fever or pain Encourage fluids, water, Gatorade, Powerade, try cold fluids, popsicles, ice cream will make it feel better You are contagious for 24 hours. Avoid kissing anyone, no eating or drinking after anyone. You are contagious. Follow-up the ER for new or worsening symptoms or no noticeable improvement over the next 24-48 hours. Follow-up with PCP this week. Prescriptions: Azithromycin [Zithromax 250mg tab] 250 mg PO DIRECTED #6 tab Prescription Printed Referrals: Varghese Grande MD [Primary Care Provider] - Forms: Work/School Release Time of Disposition: 12:35 Medical Decision Making - Channing Inquiry Pt receiving controlled substance: No Vital Signs: 11/08/21 12:00 Temperature 98.8 F Temperature Source Oral Pulse Rate [Right Brachial] 91 H Respiratory Rate 19 Blood Pressure [Right Arm] 145/90 H Blood Pressure Mean [Right Arm] 108 Blood Pressure Source [Right Arm] Automatic Cuff Blood Pressure Position [Right Arm] Sitting 02 Sat by Pulse Oximetry 97 Oxygen Delivery Method Room Air - Lab Data Lab Results 11/08/21 12:04: Strep Scn Rapid Clinic Negative Orders (Tests/Meds): ORDERS Category Date Time Status Strep Screen Confirmation Stat Micro 11/08/21 12:04 Received [facility] [place] HPI - General Chief complaint: Urgent Treatment Center Stated complaint: sore throat,cough,headache Time Seen by Provider: 11/08/21 12:25 Mode of Arrival: Ambulatory Source of Information: Patient Limitations: No Limitations Description of Symptoms (Recalled from Triage Doc. by RN): PATIENT C/O SORE THROAT AND HEADACHE. HER GRANDDAUGHTER RECENTLY TESTED POSITIVE FOR STREP HEENT Symptoms (Recalled from RN notes): Yes Resp Symptoms (Recalled from RN notes): No Skin Symptoms (Recalled from RN notes): No MS Symptoms (Recalled from RN notes): No Functional Status (Recalled from RN notes): WNL - History of Present Illness Provider Complaint: 51 yr old female presents for sore throat,nausea and headache. granddaughter recently dx with strep - Related Data Home Medications Medication Instructions Recorded Confirmed levothyroxine 112 mcg tablet 112 mcg PO ONCE 01/27/18 01/01/21 Trazodone HCl 50 mg PO QHS 01/22/20 01/01/21 Venlafaxine HCl [Effexor Xr] 75 mg PO DAILY 01/22/20 01/01/21 Previous Rx's Medication Instructions Recorded levoFLOXacin [Levaquin 500mg 500 mg PO DAILY #7 tab 01/01/21 tab] predniSONE [Prednisone 20mg 20 mg PO BID #10 tab 01/01/21 Tab] Azithromycin [Z-Jimi 250mg Tab] 250 mg PO DIRECTED #6 tab 06/19/21 Benzonatate [Tessalon Perle 100mg 100 mg PO TID PRN #30 cap 06/19/21 Cap*] Azithromycin [Zithromax 250mg 250 mg PO DIRECTED #6 tab 11/08/21 tab] Allergies Allergy/AdvReac Type Severity Reaction Status Date / Time amoxicillin Allergy Severe Swelling Verified 06/30/20 09:12 of Lip/Tongue/Throat sulfamethoxazole Allergy Unknown she states Verified 06/30/20 09:12 [From [facility]] that down in her ear would itch trimethoprim [From [facility]] Allergy Unknown Verified 06/30/20 09:12 Penicillins Allergy Verified 12/06/20 10:24 Sulfa (Sulfonamide Allergy Verified 11/08/21 12:17 Antibiotics) - Worker's Comp Is this a Worker's Comp case?: No [facility] History - Hepatitis A Screen Drug use history?: No High risk sexual behaviors?: No History of sexually transmitted infection?: No Currently employed?: No Childcare worker?: No Do you have indoor plumbing?: Yes Do you have electricity?: Yes Attestation stat
[2021-11-08 12:28] LABS: UTC Strep Screen (Rapid) Negative (Negative)
[2021-11-08 12:35] VITALS: BP 145/90; PULSE 91; RESP 19; TEMP 37.1; O2SAT 97
== END 2021-11-08 12:40 | disposition home or self-care (01) ==
PROVIDERS: Emergency Provider Nurse Practitioner Family; PCP Internal Medicine Adolescent Medicine
DX: J02.0 Streptococcal pharyngitis (principal); F41.9 Anxiety disorder, unspecified; F17.210 Nicotine dependence, cigarettes, uncomplicated
CPT/HCPCS: 87880; 99202; G0463

== ENCOUNTER 2021-11-14 07:35 | Emergency (ER) | payer OTHER, SELFPAY ==
[2021-11-14 07:36] VITALS: BP 149/84; PULSE 95; RESP 18; TEMP 37.1; O2SAT 99; BMI 29.2
[2021-11-14 08:00] LABS: Coronavirus 19, PCR Not Detected (NotDetected); Influenza A, PCR Not Detected (NotDetected); Influenza B, PCR Not Detected (NotDetected)
[2021-11-14 08:10] LABS: Strep Scrn Group A (Rapid) Negative (Negative)
--- NOTE | 2021-11-14 08:12 | HMH.EDGENADL ---
ED Disposition Clinical Impression: Upper respiratory infection Qualifiers: URI type: unspecified viral URI Qualified Code(s): J06.9 - Acute upper respiratory infection, unspecified Disposition: Home, Self-Care Condition on Discharge: Good Instructions: DI for Acute Bronchitis Referrals: Varghese Grande MD [Primary Care Provider] - - Critical Care Critical Care Time: No Attestation: On 11/14/21, the high probability of a clinically significant, sudden or life threatening deterioration of the following system(s) required my full and direct attention, intervention and personal management. The time I documented below is in addition to time spent performing reported procedures but includes the following listed in this critical care notation. Medical Decision Making - Medical Records Medical records reviewed: Yes: I reviewed the patient's medical records. - Channing Inquiry Pt receiving controlled substance: No Vital Signs: 11/14/21 07:36 11/14/21 08:30 Temperature 98.7 F Temperature Source Oral Pulse Rate 84 Pulse Rate [Right Radial] 95 H Respiratory Rate 18 16 Blood Pressure 143/75 H Blood Pressure [Right Arm] 149/84 H Blood Pressure Mean 111 Blood Pressure Mean [Right Arm] 105 Blood Pressure Source [Right Arm] Automatic Cuff Blood Pressure Position [Right Arm] Sitting 02 Sat by Pulse Oximetry 99 96 Oxygen Delivery Method Room Air - Lab Data Lab results reviewed: Yes: I reviewed the patient's lab results. Lab Results 11/14/21 07:40: Group A Strep Rapid Negative 11/14/21 07:40: SARS-CoV-2 (PCR) Not detected, Influenza A Untype (PCR) Not detected, Influenza Type B (PCR) Not detected Orders (Tests/Meds): ED MEDICATIONS Discontinued Medications Generic Name Dose Route Start Last Admin Trade Name Aparna PRN Reason Stop Dose Admin Acetaminophen 500 mg 11/14/21 08:23 11/14/21 08:40 Acetaminophen 500mg Tab PO 11/14/21 08:24 500 mg ONCE ONE Administration Ibuprofen 400 mg 11/14/21 08:23 11/14/21 08:40 Ibuprofen 400 Mg Tablet PO 11/14/21 08:24 400 mg ONCE ONE Administration Ondansetron HCl 4 mg 11/14/21 08:23 11/14/21 08:40 Ondansetron 4mg Odt SL 11/14/21 08:24 4 mg ONCE ONE Administration ORDERS Category Date Time Status Strep Screen Confirmation Stat Micro 11/14/21 07:40 Received Medical Decision Narrative: Patient is a 51-year-old female presenting for chief complaint of headache, sore throat, dry cough, nausea and abdominal discomfort. On initial exam, patient is hemodynamically stable and nontoxic-appearing. Physical exam reveals mild erythema in the oropharynx but no exudates. This is consistent with viral pharyngitis. Additionally, patient has clear lung sounds bilaterally without wheezing, rhonchi or rales. Abdomen is soft, nondistended and nontender. Patient was evaluated with a COVID-19 swab and a strep screen. She was treated with p.o. Tylenol, ibuprofen and p.o. Zofran. On reassessment, patient reported significant improvement. COVID-19 and strep screen are negative. Given early course of illness, COVID-19 is not ruled out at this time. Patient was given return precautions, counseled on supportive care and discharged in a stable condition. She was agreeable with plan. General Adult HPI - General Chief complaint: Upper Respiratory Infection Stated complaint: sore throat, cough, weakness, soa Time Seen by Provider: 11/14/21 08:10 Mode of Arrival: Ambulatory Limitations: No Limitations Description of Symptoms (Recalled from ER Triage Doc. by RN): C/O sore throat, STAHL, nausea since yesterday. Pt states granddaughter tested positive for strep last week - History of Present Illness HPI narrative: Patient is a healthy 51-year-old female presenting for chief complaint of 1 day of headache, sore throat, dry cough, abdominal discomfort associated with nausea. Patient states she had a COVID-19 exposure recently. Her headache is 6
[2021-11-14 08:30] VITALS: BP 143/75; PULSE 84; RESP 16; O2SAT 96
[2021-11-14 10:03] VITALS: BP 125/74; PULSE 89; RESP 16; TEMP 36.6; O2SAT 98
== END 2021-11-14 10:07 | disposition home or self-care (01) ==
PROVIDERS: Emergency Medicine; Emergency Provider Student in an Organized Health Care Education/Training Program; PCP Internal Medicine Adolescent Medicine
DX: J06.9 Acute upper respiratory infection, unspecified (principal); Z20.822 Contact with and (suspected) exposure to COVID-19; F41.9 Anxiety disorder, unspecified; E03.9 Hypothyroidism, unspecified; F17.210 Nicotine dependence, cigarettes, uncomplicated
CPT/HCPCS: 87430; 99282; C9803; U0003; U0005

== ENCOUNTER 2021-11-26 11:34 | Emergency (ER) | payer OTHER, SELFPAY ==
[2021-11-26 12:34] VITALS: BP 160/99; PULSE 89; RESP 18; TEMP 36.7; O2SAT 98; BMI 29.2
--- NOTE | 2021-11-26 13:25 | HMH.EDUTC ---
[facility] [place] Clinical Impression: Bronchitis Sinusitis Qualifiers: Sinusitis location: unspecified location Chronicity: unspecified Qualified Code(s): J32.9 - Chronic sinusitis, unspecified Disposition: Home, Self-Care Condition on Discharge: Good Instructions: Acute Bronchitis, Doxycycline Additional Instructions: ? Start antibiotic today. Be sure to complete entire prescription even if feeling better ? Monitor temp. Tylenol every 4 hours as needed and / or ibuprofen every 6 hours as needed ( As long as your primary care physician has told you that it ok to take both. For fever/aches/pains ER if no less than 101 despite Tylenol or Motrin ? Humidifier/vaporizer or hot steamy shower ? Inhaler every 4-6 hours as needed like we discussed. If unsure how to use it, ask pharmacist to demonstrate how. Should help open airways and improve cough, wheezing, and shortness of breath Over the counter muscle rubs and patches on shoulder area may help with muscle tension *Tessalon Perles will not cause drowsiness but use at bedtime to help stop cough so that you may get some rest. *Start steroid today. Helps with inflammation therefore, cough and wheezing. Follow directions on the package. Reviewed side effects. Patient reports taking them before. Follow up IMMEDIATELY for new or worsening of symptoms OR no noticeable improvement over the next 48-72 hours. 911 immediately for any life threatening symptoms such as chest pain or difficulty breathing Prescriptions: Albuterol Sulfate [Proventil-HFA 90mcg/puff Inh] 1 - 2 puffs IH Q6HP PRN #1 each PRN Reason: Shortness Of Breath Transmission Status: Received by [employer] # Benzonatate [Benzonatate 100mg cap] 100 mg PO Q8HP PRN #15 cap PRN Reason: Cough Transmission Status: Received by [employer] # Doxycycline Monohydrate [Doxycycline Stokes 100mg Tab] 100 mg PO Q12 7 Days #14 tab Transmission Status: Received by [employer] # methylPREDNISolone [Medrol 4mg tab] 4 mg PO DIRECTED #21 tab Transmission Status: Received by [employer] # Referrals: Varghese Grande MD [Primary Care Provider] - As needed Forms: Work/School Release Time of Disposition: 13:40 Medical Decision Making - Channing Inquiry Pt receiving controlled substance: No Channing was queried for this patient: No Vital Signs: 11/26/21 12:34 11/26/21 13:43 Temperature 98.1 F 98.1 F Temperature Source Oral Pulse Rate 89 Pulse Rate [Right Brachial] 89 Respiratory Rate 18 18 Blood Pressure 160/99 H Blood Pressure [Right Arm] 160/99 H Blood Pressure Mean [Right Arm] 119 Blood Pressure Source [Right Arm] Manual Cuff/ Palpation Blood Pressure Position [Right Arm] Sitting 02 Sat by Pulse Oximetry 98 Oxygen Delivery Method Room Air Medical Decision Narrative: Patient state that she has taken a medrol dose pack and used albuteral inhaler in the past without reactions or complications [facility] [place] HPI - General Stated complaint: shoulder/upper back pain Time Seen by Provider: 11/26/21 13:25 Mode of Arrival: Ambulatory Source of Information: Patient Limitations: No Limitations Description of Symptoms (Recalled from Triage Doc. by RN): pain in shoulder blades (steve). headache. stomach ache HEENT Symptoms (Recalled from RN notes): Yes Resp Symptoms (Recalled from RN notes): Yes Skin Symptoms (Recalled from RN notes): No MS Symptoms (Recalled from RN notes): No Functional Status (Recalled from RN notes): yes - History of Present Illness Provider Complaint: Patient states that she has been having tight achy like feeling in her shoulder blades for about a week States that feels better if someone rubs it to help with the tightness, State that she has also been feeling achy, headache and nausea States that She has been having sinus congestion and feels like it is trying to move into her chest/lungs States that also she is suppose to be using an inhale
[2021-11-26 13:43] VITALS: BP 160/99; PULSE 89; RESP 18; TEMP 36.7; O2SAT 98
== END 2021-11-26 13:50 | disposition home or self-care (01) ==
PROVIDERS: Emergency Provider Nurse Practitioner; PCP Internal Medicine Adolescent Medicine
DX: J20.9 Acute bronchitis, unspecified (principal); J32.9 Chronic sinusitis, unspecified; F41.9 Anxiety disorder, unspecified; E03.9 Hypothyroidism, unspecified; Z20.822 Contact with and (suspected) exposure to COVID-19
CPT/HCPCS: 99202; C9803; G0463; U0003; U0005

== ENCOUNTER → 2021-11-29 10:48 | Outpatient (CLI) | payer OTHER, SELFPAY | PROVIDERS: Visit Provider Nurse Practitioner | DX: Z20.822 Contact with and (suspected) exposure to COVID-19 (principal) | CPT/HCPCS: C9803; U0003; U0005 ==

== ENCOUNTER → 2022-02-08 17:13 | Outpatient (CLI) | payer OTHER, SELFPAY ==
[2022-02-08 17:38] LABS: Coronavirus 19, PCR Not Detected (NotDetected); Influenza B, PCR Not Detected (NotDetected)
[2022-02-08 18:37] LABS: Influenza A, PCR Detected (NotDetected)
== END ==
PROVIDERS: PCP Nurse Practitioner Family; Visit Provider Nurse Practitioner Family
DX: Z11.52 Encounter for screening for COVID-19 (principal); R05.9 Cough, unspecified; J10.1 Influenza due to other identified influenza virus with other respiratory manifestations
CPT/HCPCS: C9803; U0003; U0005

== ENCOUNTER → 2022-06-04 10:18 | Outpatient (CLI) | payer OTHER, SELFPAY ==
[2022-06-04 10:55] LABS: Basophils # 0.1 K/mm3 (0-0.2); Basophils % 0.9 % (0.1-2.0); Eosinophils # 0.3 K/mm3 (0.0-0.4); Eosinophils % 2.2 % (0.1-12.0); Hematocrit 46.1 % (37.0-47.0); Hemoglobin 14.4 g/dL (12.2-16.2); Lymphocytes # 4.2 K/mm3 (0.7-4.5); Lymphocytes % 36.4 % (10-50); Mean Corpuscular HGB Conc 31.2 g/dL (31.8-35.4); Mean Corpuscular Hemoglobin 29.4 pg (27.0-31.2); Mean Corpuscular Volume 94.3 fl (81-99); Mean Platelet Volume 7.8 fl (7.4-10.4); Monocytes # 0.5 K/mm3 (0.1-1.0); Monocytes % 4.2 % (1.7-9.3); Neutrophils # 6.4 K/mm3 (1.8-7.8); Neutrophils % 56.3 % (37.0-80.0); Platelet Count 376 K/mm3 (142-424); Red Blood Count 4.88 M/mm3 (4.20-5.40); Red Cell Distribution Width 13.3 % (11.5-17.5); White Blood Count 11.4 K/mm3 (4.8-10.8)
[2022-06-04 11:22] LABS: Alanine Aminotransferase 18 U/L (12-78); Albumin Level 4.1 g/dl (3.5-5.0); Albumin/Globulin Ratio 1.6 (1.1-1.8); Alkaline Phosphatase 137 U/L (38-126); Anion Gap 7.2 mEq/L (5-15); Aspartate Amino Transferase 21 U/L (14-36); Bilirubin,Total 0.2 mg/dl (0.2-1.3); Blood Urea Nitrogen 9 mg/dl (7-17); Calcium 9.5 mg/dl (8.4-10.2); Carbon Dioxide 29 mmol/L (22.0-30.0); Chloride 106 mmol/L (98-107); Chol/HDL Ratio 3.6 (1-3.5); Cholesterol 235 mg/dl (140-200); Estimated Glomerular Filt Rate 88 ml/min (>60); GFR (African American) 107 ML/MIN (>60); Globulin 2.6 g/dL (1.3-3.2); Glucose 97 mg/dl (74-100); HDL Cholesterol 66 mg/dl (40-60); Potassium 4.2 mmoL/L (3.5-5.1); Sodium 138 mmol/L (136-145); Total Protein,Serum 6.7 g/dl (6.3-8.2); Triglycerides 73 mg/dl (30-150); VLDL Cholesterol 15 mg/dL (0-40)
[2022-06-04 17:47] LABS: Thyroid Stimulating Hormone 0.24 uIU/mL (0.465-4.68)
[2022-06-05 07:18] LABS: Direct LDL Cholesterol 140 mg/dL (100-129)
== END ==
PROVIDERS: PCP Nurse Practitioner Family; Visit Provider Nurse Practitioner Family
DX: Z00.00 Encounter for general adult medical examination without abnormal findings (principal); E03.9 Hypothyroidism, unspecified
CPT/HCPCS: 36415; 80053; 80061; 84443; 85025

== ENCOUNTER 2022-08-04 10:36 | Emergency (ER) | payer OTHER, SELFPAY ==
[2022-08-04 11:02] VITALS: BP 131/79; PULSE 109; RESP 18; TEMP 36.9; O2SAT 98; BMI 30.7
--- NOTE | 2022-08-04 11:13 | EXP.UTC ---
Discharge Plan Disposition Patient Disposition: Home, Self-Care Condition: Good Prescriptions Prescriptions: No Action levothyroxine [Synthroid] 112 mcg tablet 112 mcg PO ONCE venlafaxine 75 MG capsule,extended release 24hr 75 mg PO DAILY trazodone 50 MG tablet 50 mg PO QHS Referrals Follow up/Referrals: Varghese Grande MD [Primary Care Provider] - See instructions Activity Restrictions/Add. Instructions Additional Instructions/Restrictions: *Monitor Temp, Over the counter Motrin or Tylenol as directed/as needed Tylenol every 4 hours and Motrin every 6 hours (as long as your family doctor has told you that you can take it) for fever or pain. and straight to ER if unable to lower temp less than 101.0 after medication given *Warm salt water gargles may help to soothe the throat *Throat Lozenges? *Warm fluids like tea with honey may help to soothe the throat? *Sleep elevated *Humidifier/Vaporizer Your throat swab was sent for culture. Those results are typically sent to your primary care. Be sure to follow up in 2-3 days with your family doctor/primary care physician if no improvement so they can review those result and treat if necessary. If you don?t have a primary care doctor, I recommend you get one but in the mean time, you will have to return to a walk in clinic Follow up IMMEDIATELY for new or worsening symptoms or no Noticeable improvement over the next 48-72 hours. 911 for difficulty breathing or swallowing You were tested for today for COVID19 your test result should be back in the next 24-48 hours, you may check your results on the [facility] My Health Portal Make sure to take your Vitamins Vit. C Vit D and Zinc if you can take them Clinical Impressions Clinical Impression: Viral syndrome Instructions Patient Instructions: Sore Throat, DI for Fever (Symptom) -- Adult Discharge ED Provider: Amy Tijerina [facility] [place] HPI General Stated complaint: STAHL, legs achy, sore throat, nausea Mode of Arrival: Ambulatory Source of Information: Patient Limitations: No Limitations Time Seen by Provider: 08/04/22 11:13 Description of Symptoms (Recalled from Triage Doc. by RN): pt comes in with c/o body aches, chills, runnynose, cough, headache for 2 days. pt states she was exposed to covid. HEENT Symptoms (Recalled from RN notes): Yes Resp Symptoms (Recalled from RN notes): Yes Skin Symptoms (Recalled from RN notes): No MS Symptoms (Recalled from RN notes): No Functional Status (Recalled from RN notes): n/a History of Present Illness Provider Complaint: Patient state that she was recently exposed to COVID and she has been having body aches, chills, headache and over all not feeling well States that her throat hurts when she swallows and feeling achy all over Related Data Home Medications Medication Instructions Recorded Confirmed levothyroxine 112 mcg tablet 112 mcg PO ONCE THYROID 01/27/18 08/04/22 (Synthroid) trazodone 50 mg tablet 50 mg PO QHS SLEEP 01/22/20 08/04/22 venlafaxine 75 mg capsule,extended 75 mg PO DAILY MOOD 01/22/20 08/04/22 release 24 hr Allergies Allergy/AdvReac Type Severity Reaction Status Date / Time amoxicillin Allergy Severe Swelling Verified 08/04/22 11:05 of Lip/Tongue/Throat sulfamethoxazole Allergy Unknown she states Verified 08/04/22 11:05 [From BACTRIM] that down in her ear would itch trimethoprim [From BACTRIM] Allergy Unknown Verified 08/04/22 11:05 Penicillins Allergy Verified 08/04/22 11:05 Sulfa (Sulfonamide Allergy Verified 08/04/22 11:05 Antibiotics) Worker's Comp Is this a Worker's Comp case?: No PFSH PFSH Social History Smoking Status: Current every day smoker tobacco type: cigarettes packs per day: 1 second hand exposure: Yes alcohol intake: never substance use type: denies use current occupational status: other Travel in the last 8
[2022-08-04 11:29] LABS: UTC Strep Screen (Rapid) Negative (Negative)
[2022-08-04 11:31] LABS: UTC Influenza A Antigen Negative (Negative)
[2022-08-04 11:32] LABS: UTC Influenza B Antigen Negative (Negative)
[2022-08-04 11:37] VITALS: BP 131/79; PULSE 109; RESP 18; TEMP 36.9
== END 2022-08-04 11:41 | disposition home or self-care (01) ==
PROVIDERS: Emergency Provider Nurse Practitioner; PCP Internal Medicine Adolescent Medicine
DX: U07.1 COVID-19 (principal); B34.1 Enterovirus infection, unspecified; J02.9 Acute pharyngitis, unspecified; R51.9 Headache, unspecified; R05.9 Cough, unspecified; R11.0 Nausea; M79.10 Myalgia, unspecified site; Z79.899 Other long term (current) drug therapy; Z88.0 Allergy status to penicillin; Z88.1 Allergy status to other antibiotic agents; Z88.2 Allergy status to sulfonamides; Z88.3 Allergy status to other anti-infective agents; Z88.8 Allergy status to other drugs, medicaments and biological substances
CPT/HCPCS: 87804; 87880; 99213; C9803; G0463; U0003; U0005

== ENCOUNTER 2022-09-14 13:02 | Emergency (ER) | payer OTHER, SELFPAY ==
[2022-09-14 13:10] VITALS: BP 0/0; PULSE 0; RESP 0; TEMP -17.7; TEMP 0
== END 2022-09-14 13:11 | disposition left against medical advice (07) ==
LOC: UTC 13:04
PROVIDERS: Emergency Provider Nurse Practitioner Family; PCP Internal Medicine Adolescent Medicine
DX: Z53.21 Procedure and treatment not carried out due to patient leaving prior to being seen by health care provider (principal)

== ENCOUNTER → 2022-12-27 17:06 | Outpatient (CLI) | payer OTHER, SELFPAY ==
--- NOTE | 2022-12-27 17:10 | MM_ITS ---
PROCEDURE INFORMATION: Exam: MG Bilateral Screening 3D Mammography Exam date and time: 12/27/2022 5:00 PM Age: 52 years old Clinical indication: Screening examination. Patient was for referred for six-month follow-up for probably benign mammographic asymmetric density in the left breast and probably benign complicated cyst on the left at 6 o'clock, from 12/21/2019. TECHNIQUE: Imaging protocol: Bilateral Screening tomosynthesis and 2D mammography including computer-aided detection (CAD) when performed. COMPARISON: 1. MG MM DIG MAMM DX UNILAT LT CAD 12/21/2019 2:46 PM 2. MG MM DIG SCREENING MAMM BI W/CAD 12/03/2019 9:11 AM 3. MG DXLT MM Dig mamm DX unilat LT CAD 12/25/2018 1:29 PM 4. MG SCBI MM Dig screening mamm BI w/CAD 11/30/2018 10:17 AM FINDINGS: MAMMOGRAPHY: Breast composition: There are scattered areas of fibroglandular density. Mass: Stable sub cm masses in the upper outer quadrants, middle 3rd, since 12/21/2019. Architectural distortion: None. Calcifications: No suspicious calcifications. Asymmetric density: None. Skin thickening: None. Axillary adenopathy: None. Other: Right biopsy clip. IMPRESSION: See comment Please note that patient has been recommended for six-month follow-up left sonography on 12/21/2019 - if this is not been performed in the interval, patient should be recalled for sonography at this time. No mammographic evidence of malignancy. Annual screening is recommended unless otherwise clinically indicated. ASSESSMENT: BI-RADS Category 2: Benign
== END ==
PROVIDERS: PCP Internal Medicine Adolescent Medicine; Visit Provider Nurse Practitioner Family
DX: Z12.31 Encounter for screening mammogram for malignant neoplasm of breast (principal)
CPT/HCPCS: 77063; 77067

== ENCOUNTER 2023-03-11 09:21 | Emergency (ER) | payer OTHER, SELFPAY ==
[2023-03-11 09:22] VITALS: BP 184/98; PULSE 101; RESP 17; TEMP 37; O2SAT 96; BMI 30.2
--- NOTE | 2023-03-11 09:34 | XR_ITS ---
FINAL REPORT CLINICAL HISTORY: concern for pneumonia, cough FINDINGS: There is no evidence of effusion or other pleural disease. The mediastinum has a normal appearance. The cardiac silhouette is unremarkable. IMPRESSION: Unremarkable chest exam. Authenticated and ERN
--- NOTE | 2023-03-11 10:01 | PC.NURSE ---
Patient back from x-ray
--- NOTE | 2023-03-11 10:13 | PC.NURSE ---
Rounded on patient; call light within reach of patient
--- NOTE | 2023-03-11 10:19 | PC.NURSE ---
rounded on pt gave her a box of tissues, no complaints at this time, call light at bs
[2023-03-11 10:30] VITALS: BP 130/73; PULSE 90; RESP 16; O2SAT 95
[2023-03-11 10:31] LABS: Alanine Aminotransferase 28 U/L (12-78); Albumin Level 4.4 g/dl (3.5-5.0); Albumin/Globulin Ratio 1.4 (1.1-1.8); Alkaline Phosphatase 103 U/L (38-126); Anion Gap 16.8 mEq/L (5-15); Aspartate Amino Transferase 29 U/L (14-36); Bilirubin,Total 0.3 mg/dl (0.2-1.3); Blood Urea Nitrogen 13 mg/dl (7-17); Calcium 9.5 mg/dl (8.4-10.2); Carbon Dioxide 26 mmol/L (22.0-30.0); Chloride 99 mmol/L (98-107); Creatinine Clearance Estimated 118 mL/min (50-200); Estimated Glomerular Filt Rate 88 ml/min (>60); GFR (African American) 106 ML/MIN (>60); Globulin 3.1 g/dL (1.3-3.2); Glucose 119 mg/dl (74-100); Potassium 3.8 mmoL/L (3.5-5.1); Sodium 138 mmol/L (136-145); Total Protein,Serum 7.5 g/dl (6.3-8.2)
[2023-03-11 10:32] LABS: Basophils % 0.1 % (0.1-2.0); Eosinophils # 0.2 K/mm3 (0.0-0.4); Eosinophils % 0.6 % (0.1-12.0); Hematocrit 43.5 % (37.0-47.0); Hemoglobin 14.4 g/dL (12.2-16.2); Lymphocytes # 2.6 K/mm3 (0.7-4.5); Lymphocytes % 10.1 % (10-50); Mean Corpuscular HGB Conc 33.1 g/dL (31.8-35.4); Mean Corpuscular Hemoglobin 30.3 pg (27.0-31.2); Mean Corpuscular Volume 91.5 fl (81-99); Mean Platelet Volume 7.8 fl (7.4-10.4); Monocytes # 0.6 K/mm3 (0.1-1.0); Monocytes % 2.4 % (1.7-9.3); Neutrophils # 22.7 K/mm3 (1.8-7.8); Neutrophils % 86.7 % (37.0-80.0); Platelet Count 390 K/mm3 (142-424); Red Blood Count 4.76 M/mm3 (4.20-5.40); Red Cell Distribution Width 13.2 % (11.5-17.5); White Blood Count 26.1 K/mm3 (4.8-10.8)
[2023-03-11 10:37] LABS: MANUAL DIFFERENTIAL MANUAL DIFFERENTIAL (MANUAL DIFF)
[2023-03-11 11:00] VITALS: BP 129/73; PULSE 82; RESP 20; O2SAT 94
--- NOTE | 2023-03-11 11:38 | PC.NURSE ---
rounded on pt she needed to use restroom unhooked from data machine, rehooked up when finished, pt then stated she had a headache, relayed the message to ed
--- NOTE | 2023-03-11 11:57 | HMH.EDGENADL ---
Discharge Plan Disposition Patient Disposition: Home, Self-Care Prescriptions Prescriptions: New ondansetron [ondansetron] 4 mg tablet,disintegrating 4 mg PO TIDP PRN (Reason: Nausea) Qty: 10 0RF No Action levothyroxine [Synthroid] 112 mcg tablet 112 mcg PO ONCE venlafaxine 75 MG capsule,extended release 24hr 75 mg PO DAILY trazodone 50 MG tablet 50 mg PO QHS Referrals Follow up/Referrals: Symone Anderson APRN [Primary Care Provider] - See instructions Clinical Impressions Clinical Impression: Rash Discharge ED Provider: Lisandro Beard General Adult HPI General Chief complaint: Allergic Reaction Stated complaint: face red and burning Time Seen by Provider: 03/11/23 09:30 Mode of Arrival: Ambulatory Source of Information: Patient Limitations: No Limitations Description of Symptoms (Recalled from ER Triage Doc. by RN): pt reports she was seen by Natty Rodriguez yesterday in the office for upper respiratory symptoms. pt was given levaquin and a steroid for treatment of possible pneumonia. pt reports she started to take both medications yesterday when she began to feel her face get hot. pt reports this morning when she woke and took both medications she began to feel hot and flushed in her face, a tickle in her throat and a headache across her eyebrows. pt reports history of multiple allergic reactions to different medications History of Present Illness HPI narrative: Patient is a 52-year-old female with recent history of diagnosis of pneumonia yesterday who presents with concern for rash. She says that she was seen by a provider at her PCPs office yesterday and was diagnosed with possible pneumonia. She was started on Levaquin and prednisone. She said that she started both medications yesterday. She said that today she started feeling hot and flushed and felt a tickle in her throat as well as getting a headache. She does have numerous allergies to other antibiotics which she is concerned that she was having allergic reaction so she decided come in for evaluation. She denies any difficulty breathing or shortness of breath. She locates the rash mainly on her face. Says that it is on her arms and legs. No GI symptoms. Related Data Home Medications Medication Instructions Recorded Confirmed levothyroxine 112 mcg tablet 112 mcg PO ONCE THYROID 01/27/18 08/04/22 (Synthroid) trazodone 50 mg tablet 50 mg PO QHS SLEEP 01/22/20 08/04/22 venlafaxine 75 mg capsule,extended 75 mg PO DAILY MOOD 01/22/20 08/04/22 release 24 hr Previous Rx's Medication Instructions Recorded ondansetron 4 mg disintegrating 4 mg PO TIDP PRN Nausea #10 tabs 03/11/23 tablet Allergies Allergy/AdvReac Type Severity Reaction Status Date / Time amoxicillin Allergy Severe Swelling Verified 08/04/22 11:05 of Lip/Tongue/Throat sulfamethoxazole Allergy Unknown she states Verified 08/04/22 11:05 [From BACTRIM] that down in her ear would itch trimethoprim [From BACTRIM] Allergy Unknown Verified 08/04/22 11:05 Penicillins Allergy Verified 08/04/22 11:05 Sulfa (Sulfonamide Allergy Verified 08/04/22 11:05 Antibiotics) [facility] Disclaimer: The information contained in this section may have been updated after the patient was seen, as this information can be updated by other users. Social History Smoking Status: Never smoker second hand exposure: Yes alcohol intake: never substance use type: denies use current occupational status: other Travel in the last 8 weeks: None household members: spouse housing: house number of children: 3 caffeine: Yes ROS Obtained: Yes All systems reviewed & no additional complaints except as documented Physical Exam General General appearance: alert and in no apparent distress Head Head exam: atraumatic, normocephalic and normal inspection Eye Eye exam: Prese
--- NOTE | 2023-03-11 11:59 | PC.NURSE ---
Patient assessed for pain prior to administration of Tylenol. patient states her pain is a 5 (on 0-10 pain scale) frontal headache. Call light within reach of patient
[2023-03-11 12:00] VITALS: BP 142/80; PULSE 89; RESP 20; O2SAT 94
[2023-03-11 12:07] LABS: Lymphocytes % 15 % (10-50); Monocytes % 5 % (2-9); Neutrophils % 80 % (42-76); Platelet Estimate Normal; RBC Morphology Normal; Total Cells Counted 100
[2023-03-11 12:29] VITALS: BP 148/80; PULSE 87; RESP 17; TEMP 37; O2SAT 98
== END 2023-03-11 12:33 | disposition home or self-care (01) ==
PROVIDERS: Emergency Provider Student in an Organized Health Care Education/Training Program; PCP Nurse Practitioner Family
DX: R51.9 Headache, unspecified (principal); R21 Rash and other nonspecific skin eruption; T50.905A Adverse effect of unspecified drugs, medicaments and biological substances, initial encounter
CPT/HCPCS: 71046; 80053; 85007; 85025; 99284

== ENCOUNTER → 2023-06-03 12:30 | Outpatient (CLI) | payer OTHER, SELFPAY ==
[2023-06-03 12:45] LABS: Basophils # 0.1 K/mm3 (0-0.2); Basophils % 0.8 % (0.1-2.0); Eosinophils # 0.2 K/mm3 (0.0-0.4); Eosinophils % 1.6 % (0.1-12.0); Hematocrit 44.9 % (37.0-47.0); Hemoglobin 14.1 g/dL (12.2-16.2); Lymphocytes # 3.3 K/mm3 (0.7-4.5); Lymphocytes % 34.3 % (10-50); Mean Corpuscular HGB Conc 31.5 g/dL (31.8-35.4); Mean Corpuscular Hemoglobin 28.4 pg (27.0-31.2); Mean Corpuscular Volume 90.4 fl (81-99); Mean Platelet Volume 7.6 fl (7.4-10.4); Monocytes # 0.4 K/mm3 (0.1-1.0); Monocytes % 3.7 % (1.7-9.3); Neutrophils # 5.8 K/mm3 (1.8-7.8); Neutrophils % 59.6 % (37.0-80.0); Platelet Count 361 K/mm3 (142-424); Red Blood Count 4.96 M/mm3 (4.20-5.40); Red Cell Distribution Width 13.4 % (11.5-17.5); White Blood Count 9.7 K/mm3 (4.8-10.8)
[2023-06-03 13:19] LABS: Alanine Aminotransferase 22 U/L (12-78); Albumin Level 4.3 g/dl (3.5-5.0); Albumin/Globulin Ratio 1.7 (1.1-1.8); Alkaline Phosphatase 99 U/L (38-126); Anion Gap 10.5 mEq/L (5-15); Aspartate Amino Transferase 20 U/L (14-36); Bilirubin,Total 0.3 mg/dl (0.2-1.3); Blood Urea Nitrogen 8 mg/dl (7-17); Calcium 9.2 mg/dl (8.4-10.2); Carbon Dioxide 26 mmol/L (22.0-30.0); Chloride 106 mmol/L (98-107); Chol/HDL Ratio 3.6 (1-3.5); Cholesterol 233 mg/dl (140-200); Estimated Glomerular Filt Rate 75 ml/min (>60); GFR (African American) 91 ML/MIN (>60); Globulin 2.5 g/dL (1.3-3.2); Glucose 96 mg/dl (74-100); HDL Cholesterol 64 mg/dl (40-60); Potassium 3.5 mmoL/L (3.5-5.1); Sodium 139 mmol/L (136-145); Total Protein,Serum 6.8 g/dl (6.3-8.2); Triglycerides 119 mg/dl (30-150); VLDL Cholesterol 24 mg/dL (0-40)
[2023-06-03 13:30] LABS: Direct LDL Cholesterol 113.75 mg/dL (100-129)
[2023-06-03 13:40] LABS: Free T4 (Free Thyroxine) 1.46 ng/dl (0.78-2.19)
== END ==
PROVIDERS: PCP Nurse Practitioner Family; Visit Provider Nurse Practitioner Family
DX: E03.9 Hypothyroidism, unspecified (principal); E78.5 Hyperlipidemia, unspecified
CPT/HCPCS: 36415; 80053; 80061; 84439; 84443; 85025

== ENCOUNTER 2023-10-25 14:08 | Emergency (ER) | payer OTHER, SELFPAY ==
--- NOTE | 2023-10-25 14:04 | ECG_ITS ---
APPROVED REPORT Exam: Resting ECG HR:90 bpm ECG Measurements Heart Rate 90 AXES AR 154 P 58 QRSd 82 QRS 52 QT 357 T 29 QTc 405 Conclusion SINUS RHYTHM NORMAL ECG UNCONFIRMED REPORT Electronically signed by : Varghese Grande MD 10/26/2023 09:01:18
[2023-10-25 14:08] VITALS: BP 160/95; PULSE 90; RESP 18; TEMP 36.6; O2SAT 96; BMI 31.8
--- NOTE | 2023-10-25 14:27 | XR_ITS ---
FINAL REPORT CLINICAL HISTORY: chest pain COMPARISON: 03/11/2023 FINDINGS: TWO-VIEW CHEST The heart size is normal. The mediastinum is normal. The lungs are clear. There is no pneumothorax. IMPRESSION: No acute cardiopulmonary process. Reviewed, Interpreted and Dictated by Dony Saldaña MD Transcribed by Melissa Keller Authenticated and . [facility]
[2023-10-25 14:30] VITALS: BP 146/95; PULSE 82; RESP 20; O2SAT 96
[2023-10-25 14:46] LABS: Chloride 103 mmol/L (98-107); Potassium 4.2 mmoL/L (3.5-5.1); Sodium 139 mmol/L (136-145)
[2023-10-25 14:47] LABS: Basophils # 0.1 K/mm3 (0-0.2); Basophils % 0.7 % (0.1-2.0); Eosinophils # 0.3 K/mm3 (0.0-0.4); Eosinophils % 2.4 % (0.1-12.0); Hematocrit 41.7 % (37.0-47.0); Lymphocytes # 4.9 K/mm3 (0.7-4.5); Lymphocytes % 38.2 % (10-50); Mean Corpuscular HGB Conc 33.5 g/dL (31.8-35.4); Mean Corpuscular Hemoglobin 30.7 pg (27.0-31.2); Mean Corpuscular Volume 91.7 fl (81-99); Monocytes # 0.6 K/mm3 (0.1-1.0); Monocytes % 4.4 % (1.7-9.3); Neutrophils % 54.3 % (37.0-80.0); Platelet Count 358 K/mm3 (142-424); Red Blood Count 4.54 M/mm3 (4.20-5.40); Red Cell Distribution Width 13.2 % (11.5-17.5); White Blood Count 12.8 K/mm3 (4.8-10.8)
[2023-10-25 14:49] LABS: Alanine Aminotransferase 22 U/L (12-78); Albumin Level 4.5 g/dl (3.5-5.0); Albumin/Globulin Ratio 1.5 (1.1-1.8); Alkaline Phosphatase 87 U/L (38-126); Anion Gap 12.2 mEq/L (5-15); Aspartate Amino Transferase 39 U/L (14-36); Bilirubin,Total 0.6 mg/dl (0.2-1.3); Blood Urea Nitrogen 11 mg/dl (7-17); Carbon Dioxide 28 mmol/L (22.0-30.0); Creatinine Clearance Estimated 120 mL/min (50-200); Estimated Glomerular Filt Rate 88 ml/min (>60); GFR (African American) 106 ML/MIN (>60); Globulin 3.1 g/dL (1.3-3.2); Total Protein,Serum 7.6 g/dl (6.3-8.2)
[2023-10-25 14:50] LABS: Calcium 8.8 mg/dl (8.4-10.2); Glucose 104 mg/dl (74-100)
[2023-10-25 15:00] VITALS: BP 166/96; PULSE 76; RESP 20; O2SAT 96
[2023-10-25 15:03] LABS: Troponin I < 0.01 ng/ml (0.00-0.034)
[2023-10-25 15:39] LABS: Lipase 85 U/L (23-300)
--- NOTE | 2023-10-25 15:52 | HMH.EDCP ---
Discharge Plan Disposition Patient Disposition: Home, Self-Care Condition: Good Prescriptions Prescriptions: No Action levothyroxine [Synthroid] 112 mcg tablet 112 mcg PO ONCE ondansetron [ondansetron] 4 mg tablet,disintegrating 4 mg PO TIDP PRN (Reason: Nausea) Qty: 10 0RF venlafaxine 75 MG capsule,extended release 24hr 75 mg PO DAILY trazodone 50 MG tablet 50 mg PO QHS Referrals Follow up/Referrals: Thomas Polanco MD [Staff Physician] - See instructions Varghese Grande MD [Primary Care Provider] - See instructions Activity Restrictions/Add. Instructions Additional Instructions/Restrictions: You were evaluated in the emergency department today. At this time, your heart workup is reassuring. I recommend close follow-up with your primary care provider as well as Dr. Polanco, our supervisor photostat. Return to the emergency department for any new or worsening symptoms. Clinical Impressions Clinical Impression: Chest pain Instructions Patient Instructions: DI for Atypical Chest Pain Discharge ED Provider: Saskia Birch HPI General Chief Complaint: Chest Pain Stated Complaint: Chest Pain Time Seen by Provider: 10/25/23 15:09 Mode of Arrival: Ambulatory Source of Information: Patient Limitations: No Limitations Description of Symptoms (Recalled from ER Triage Doc. by RN): Patient complaint of left sided chest pain that started yesterday. States it radiates to her left shoulder blade. History of Present Illness HPI narrative: This patient is a 53-year-old female with a history of hypothyroidism, GERD, depression, and anxiety presented to the emergency department for evaluation with concern for chest pain. She states that her heart hurts. She states that this started yesterday when she became very stressed. She states that she has had issues with her heart hurting whenever she gets stressed and anxious in the past. She denies any other symptoms, such as lightheadedness, shortness of breath, abdominal pain, nausea, vomiting, changes in bowel movements, rashes, or swelling. Nothing seems to make her symptoms better or worse. No other concerns noted at this time. Patient denies any history of cardiopulmonary issues in the past. Related Data Home Medications Medication Instructions Recorded Confirmed levothyroxine 112 mcg tablet 112 mcg PO ONCE THYROID 01/27/18 08/04/22 (Synthroid) trazodone 50 mg tablet 50 mg PO QHS SLEEP 01/22/20 08/04/22 venlafaxine 75 mg capsule,extended 75 mg PO DAILY MOOD 01/22/20 08/04/22 release 24 hr Previous Rx's Medication Instructions Recorded ondansetron 4 mg disintegrating 4 mg PO TIDP PRN Nausea #10 tabs 03/11/23 tablet Allergies Allergy/AdvReac Type Severity Reaction Status Date / Time amoxicillin Allergy Severe Swelling Verified 08/04/22 11:05 of Lip/Tongue/Throat sulfamethoxazole Allergy Unknown she states Verified 08/04/22 11:05 [From BACTRIM] that down in her ear would itch trimethoprim [From BACTRIM] Allergy Unknown Verified 08/04/22 11:05 Penicillins Allergy Verified 08/04/22 11:05 Sulfa (Sulfonamide Allergy Verified 08/04/22 11:05 Antibiotics) [facility] Disclaimer: The information contained in this section may have been updated after the patient was seen, as this information can be updated by other users. Social History Smoking Status: Current every day smoker tobacco type: cigarettes packs per day: 1 second hand exposure: Yes alcohol intake: never substance use type: denies use current occupational status: other Travel in the last 8 weeks: None household members: spouse housing: house number of children: 3 caffeine: Yes ROS Obtained: Yes All systems reviewed & no additional complaints except as documented Physical Exam General General appearance: alert and in no apparent distress Head Head exam: atraum
[2023-10-25 15:57] LABS: T4 (Thyroxine) 11.6 ug/dl (5.53-11.0)
[2023-10-25 16:11] LABS: Thyroid Stimulating Hormone 4.31 uIU/mL (0.465-4.68)
--- NOTE | 2023-10-25 16:31 | PC.NURSE ---
Rounded on pt. Advised she was in pain. Dr. Birch made aware. Call light within reach.
[2023-10-25 17:29] LABS: Troponin I < 0.01 ng/ml (0.00-0.034)
[2023-10-25 17:48] VITALS: BP 151/95; PULSE 90; RESP 18; TEMP 36.6; O2SAT 98
== END 2023-10-25 18:01 | disposition home or self-care (01) ==
PROVIDERS: Student in an Organized Health Care Education/Training Program; Emergency Provider Emergency Medicine; PCP Internal Medicine Adolescent Medicine
DX: R07.9 Chest pain, unspecified (principal); E03.9 Hypothyroidism, unspecified; K21.9 Gastro-esophageal reflux disease without esophagitis; F17.210 Nicotine dependence, cigarettes, uncomplicated
CPT/HCPCS: 71046; 80053; 83690; 84436; 84443; 84484; 85025; 93005; 99285

== ENCOUNTER 2023-10-31 03:45 | Emergency (ER) | payer OTHER, SELFPAY ==
[2023-10-31] VITALS (11 sets, daily range): BP systolic 143–183; BP diastolic 82–109; PULSE 77–102; RESP 14–24; TEMP 36.6; O2SAT 95–97; BMI 31.8
--- NOTE | 2023-10-31 03:48 | ECG_ITS ---
APPROVED REPORT Exam: Resting ECG HR:106 bpm ECG Measurements Heart Rate 106 AXES OR 148 P 68 QRSd 86 QRS 66 QT 359 T 62 QTc 421 Conclusion SINUS TACHYCARDIA NONSPECIFIC T-WAVE ABNORMALITY ABNORMAL RHYTHM ECG UNCONFIRMED REPORT Electronically signed by : Varghese Grande MD 10/31/2023 08:22:22
--- NOTE | 2023-10-31 03:50 | ED_ITS ---
Discharge Plan Disposition Patient Disposition: Home, Self-Care Condition: Good Prescriptions Prescriptions: No Action levothyroxine [Synthroid] 112 mcg tablet 112 mcg PO ONCE omeprazole 40 mg capsule,delayed release(DR/EC) 40 mg PO DAILY Qty: 90 3RF venlafaxine 75 MG capsule,extended release 24hr 75 mg PO DAILY trazodone 50 MG tablet 50 mg PO QHS Referrals Follow up/Referrals: Provider,Referral, [Primary Care Provider] - See instructions Activity Restrictions/Add. Instructions Additional Instructions/Restrictions: You were evaluated in the ER for concerns of chest pain. You are safe for discharge at this time. Follow-up with cardiology as scheduled at your upcoming appointment. Make an appointment with your primary care physician for reevaluation as soon as possible and to discuss repeat mammogram and repeat labs, specifically blood counts and electrolytes, if you continue having left breast pain or other changes. Return to the ER with new, worsening, or otherwise concerning symptoms. Clinical Impressions Clinical Impression: Breast pain, left Chest pain Qualifiers: Chest pain type: unspecified Qualified Code(s): R07.9 - Chest pain, unspecified Discharge ED Provider: Ayan Meier HPI <Marisol Kirby MD - Last Filed: 10/31/23 06:56> General Chief Complaint: Chest Pain Stated Complaint: Chest pain Time Seen by Provider: 10/31/23 03:47 History of Present Illness HPI narrative: This 53-year-old female presents to the ER with concerns of acute onset chest pain shortly after midnight. Patient states she has been evaluated for something similar recently. I have reviewed these records. She states she is taking her home omeprazole as directed. She states she is having pain similar to what she was seen for previously but tonight she has an abnormal numb sensation in her left breast. She states she thought maybe it was because she was laying on her left side. She does have chest wall tenderness. Patient took Tylenol prior to arrival for pain without significant improvement. She denies any nausea or vomiting. She denies any pain radiating to the arm or jaw. Patient states she has gotten regular mammograms and my review of recent records demonstrates patient most recently had one in December 2022 which did not demonstrate any concerning masses. Patient states she is not dizzy, lightheaded, or having shortness of breath. She states she was told by cardiology to return to the ER if she had any worsening symptoms. Related Data Home Medications Medication Instructions Recorded Confirmed levothyroxine 112 mcg tablet 112 mcg PO ONCE THYROID 01/27/18 10/31/23 (Synthroid) trazodone 50 mg tablet 50 mg PO QHS SLEEP 01/22/20 10/31/23 venlafaxine 75 mg capsule,extended 75 mg PO DAILY MOOD 01/22/20 10/31/23 release 24 hr Previous Rx's Medication Instructions Recorded omeprazole 40 mg capsule,delayed 40 mg PO DAILY #90 caps 10/26/23 release Allergies Allergy/AdvReac Type Severity Reaction Status Date / Time amoxicillin Allergy Severe Swelling Verified 10/26/23 13:20 of Lip/Tongue/Throat sulfamethoxazole Allergy Unknown she states Verified 10/26/23 13:20 [From BACTRIM] that down in her ear would itch trimethoprim [From BACTRIM] Allergy Unknown Verified 10/26/23 13:20 Penicillins Allergy Verified 10/26/23 13:20 Sulfa (Sulfonamide Allergy Verified 10/26/23 13:20 Antibiotics) [facility] <Marisol Kirby MD - Last Filed: 10/31/23 06:56> [facility] Disclaimer: The information contained in this section may have been updated after the patient was seen, as this information can be updated by other users. Medical History (Updated 10/31/23 @ 06:49 by Marisol Kirby MD) Tachycardia Social History Smoking Status: Current every day smoker tobacco type: cigarettes packs per day: 1 second hand exposure: Yes alcohol intake: never substance use type: denies use current occupational status: other Travel in the last 8 weeks: None household members: spouse housing: house number of children: 3 caffeine: Yes <Marisol Kirby MD - Last Filed: 10/31/23 06:56> ROS Obtained: Yes All systems reviewed & no additional complaints except as documented Constitutional Constitutional: Denies chills, Denies fever(s), Denies headache(s) and Denies weakness Eyes Eyes: Denies change in vision ENT Ears, Nose, Mouth, and Throat: Denies dizziness, Denies headache(s), Denies nasal congestion and Denies sore throat Cardiovascular Cardiovascular: Reports chest pain, Denies dyspnea and Denies leg edema Respiratory Respiratory: Denies cough and Denies dyspnea Gastrointestinal Gastrointestingal: Denies constipation, diarrhea, nausea or vomiting Genitourinary Female Genitourinary: Denies dysuria Musculoskeletal Musculoskeletal: Denies arthralgias, Denies myalgias, Denies numbness and Denies tingling Integumentary/Breasts Skin/Breast: Denies change in pigmentation and Denies breast pain (Numb sensation in the left breast) Neurologic Neurologic: Denies dizziness, Denies headache(s), Denies numbness, Denies tingling and Denies weakness Physical Exam <Marisol Kirby MD - Last Filed: 10/31/23 06:56> General General appearance: alert and in no apparent distress Head Head exam: atraumatic and normocephalic Eye Eye exam: Present PERRL and EOMI ENT ENT exam: Present mucous membranes moist Neck Neck exam: Present normal inspection and full ROM Chest Chest inspection: Present symmetric chest wall rise, tenderness (Anterior chest wall tenderness along the left costochondral junction without deformity or findings of trauma) and other (Breast exam demonstrates mildly erythematous blanchable patch at the lower outer quadrant of the left breast, no tenderness, no mass, no nipple changes, right breast normal) Respiratory Respiratory exam: Present normal lung sounds bilaterally; Absent respiratory distress, wheezes or stridor Cardiovascular Cardiovascular exam: Present normal rhythm and tachycardia Abdominal Exam Abdominal exam: Present soft; Absent distention, tenderness, guarding or rebound Extremities Exam Extremities exam: Present full ROM Neurological Exam Neurological exam: Present alert and oriented X3; Absent motor sensory deficit Psychiatric Psychiatric exam: Present normal affect and normal mood Skin Skin exam: Present warm and dry HEART Score <Marisol Kirby MD - Last Filed: 10/31/23 06:56> HEART Score HEART Score assessment performed?: Yes History (anamnesis): Slightly suspicious ECG: Non-specific disturbance Age: 45-65 years Risk factors: 1-2 risk factors Troponin: </= normal limit HEART Score: 3 <Ayan Meier MD - Last Filed: 10/31/23 07:45> HEART Score HEART Score: 3 Procedures <Marisol Kirby MD - Last Filed: 10/31/23 06:56> Miscellaneous Procedure Procedure Performed: Indication: Soft tissue/breast pain, small area of redness on the left breast Identified structures: Left breast Findings: Normal, no findings of abscess, cellulitis, subcutaneous air, or foreign body. Impression: No findings of infection Images were saved to the permanent archive. The study was technically adequate within the limits of the study. Soft tissue CPT codes Breast: [id number] (limited) This study was performed by me, and I personally interpreted all images/videos. Based on my clinical judgment, these images were adequate and did not necessitate further emergent imaging the future mammogram could be considered. Critical Care <Marisol Kirby MD - Last Filed: 10/31/23 06:56> Critical Care Time Critical Care Time: No Medical Decision Making <Marisol Kirby MD - Last Filed: 10/31/23 06:56> Medical Records Medical records reviewed: Yes I reviewed the patient's medical records. MR Comment: Patient was evaluated by cardiology 1 day after her last visit to the ER. Based off my review of the most recent progress note they have plans for upcoming echo and cardiac CT. [place] Inquiry Pt receiving controlled substance: No Vital Signs Vital Signs: 10/31/23 03:52 10/31/23 04:02 10/31/23 03:51 Temperature 97.8 F Temperature Source Oral Pulse Rate 102 H 101 H Pulse Rate [Right Radial] 102 H Respiratory Rate 24 18 Blood Pressure 174/100 H Blood Pressure [Right Arm] 174/101 H Blood Pressure Mean 116 Blood Pressure Mean [Right Arm] 125 Blood Pressure Source [Right Arm] Automatic Cuff Blood Pressure Position [Right Arm] Supine 02 Sat by Pulse Oximetry 97 97 Oxygen Delivery Method Room Air Room Air 10/31/23 04:30 10/31/23 05:04 10/31/23 05:30 Temperature Temperature Source Pulse Rate 92 H 81 82 Pulse Rate [Right Radial] Respiratory Rate 22 18 16 Blood Pressure 143/82 H 152/92 H 166/103 H Blood Pressure [Right Arm] Blood Pressure Mean 120 119 Blood Pressure Mean [Right Arm] Blood Pressure Source [Right Arm] Blood Pressure Position [Right Arm] 02 Sat by Pulse Oximetry 95 95 96 Oxygen Delivery Method Room Air Room Air 10/31/23 06:15 10/31/23 06:45 10/31/23 07:00 Temperature Temperature Source Pulse Rate 78 79 77 Pulse Rate [Right Radial] Respiratory Rate 22 17 17 Blood Pressure 152/84 H 179/91 H 179/109 H Blood Pressure [Right Arm] Blood Pressure Mean Blood Pressure Mean [Right Arm] Blood Pressure Source [Right Arm] Blood Pressure Position [Right Arm] 02 Sat by Pulse Oximetry 96 97 97 Oxygen Delivery Method Lab Data Labs: Lab Results 10/31/23 03:45: WBC 16.3 H, RBC 4.92, Hgb 15.0, Hct 45.9, MCV 93.4, MCH 30.6, MCHC 32.7, RDW 13.2, Plt Count 332, MPV 7.6, Neut % (Auto) 51.9, Lymph % (Auto) 40.5, [place] % (Auto) 3.6, Eos % (Auto) 3.3, Baso % (Auto) 0.8, Neut # (Auto) 8.5 H, Lymph # (Auto) 6.6 H, [place] # (Auto) 0.6, Eos # (Auto) 0.5 H, Baso # (Auto) 0.1, Total Counted 100, Neutrophils % (Manual) 45, Lymphocytes % (Manual) 51 H, Monocytes % (Manual) 2, Eosinophils % (Manual) 2, Platelet Estimate Normal, RBC Morphology Normal, D-Dimer 0.44, Sodium 137, Potassium 3.0 L, Chloride 104, Carbon Dioxide 28, Anion Gap 8.0, BUN 13, Creatinine 0.70, Estimated Creat Clear 120, Estimated GFR 88, Est GFR ( Amer) 106, Glucose 96, Calcium 8.7, Total Bilirubin 0.3, AST 24, ALT 26, Alkaline Phosphatase 114, Troponin I < 0.01, Total Protein 7.3, Albumin 4.3, Globulin 3.0, Albumin/Globulin Ratio 1.4 10/31/23 06:59: Troponin I < 0.01 10/31/23 03:45 10/31/23 03:45 Response Orders (Tests/Meds): ED MEDICATIONS Generic Name Dose Route Start Last Admin Trade Name Freq PRN Reason Stop Dose Admin Lactated Ringer's 500 mls @ 250 mls/hr 10/31/23 06:05 10/31/23 06:12 Lactated Ringer's 500ml IV 10/31/23 08:04 250 mls/hr .Q2H ONE Administration Discontinued Medications Generic Name Dose Route Start Last Admin Trade Name Freq PRN Reason Stop Dose Admin Lactated Ringer's 1,000 mls @ 999 mls/hr 10/31/23 03:58 10/31/23 04:09 Lactated Ringer's 1000 Ml Bag IV 10/31/23 04:58 999 mls/hr .Q1H1M ONE Administration Potassium Chloride/Water 100 mls @ 100 mls/hr 10/31/23 04:15 10/31/23 06:38 Potassium Chloride 10meq/100ml Ivpb IV 10/31/23 07:14 100 mls/hr Q1H PAYAL Administration Ketorolac Tromethamine 15 mg 10/31/23 03:57 10/31/23 04:08 Ketorolac 30mg/Ml Vial IV 10/31/23 03:58 15 mg ONCE ONE Administration Potassium Chloride 40 meq 10/31/23 04:11 10/31/23 04:15 Potassium Chloride 20meq Tab PO 10/31/23 04:12 40 meq ONCE ONE Administration ORDERS Category Date Time Status CXR --portable [XR chest portable] Stat Exams 10/31/23 03:57 Completed POCUS Point of Care (ER Only) Stat Exams 10/31/23 06:19 Ordered CBC w/Auto Diff [Complete Blood Count Auto Diff] Stat Lab 10/31/23 03:45 Completed CMP [Comprehensive Metabolic Panel] Stat Lab 10/31/23 03:45 Completed D-Dimer Stat Lab 10/31/23 03:45 Completed Trop I [Troponin I] Stat Lab 10/31/23 03:45 Completed Troponin I Q3H Lab 10/31/23 06:59 Completed Troponin I Q3H Lab 10/31/23 10:00 Ordered ECG initial [place] Routine Y 10/31/23 03:48 Completed MDM Narrative Medical Decision Narrative: In summary, this 53year old female presents to the emergency department today with chest pain, abnormal left breast sensation. On initial evaluation patient is hemodynamically stable, afebrile, she does have mild tachycardia with heart rate in the low 100s saturating 97% on room air, lungs clear to auscultation bilaterally, 2+ pulses throughout, no abnormalities on cardiopulmonary exam. Exam of the chest wall demonstrates tenderness along the left costochondral junction in the area where patient describes pain, left breast exam also demonstrates slight superficial skin abnormality with small patch of rash that blanches and has no other skin changes, no other abnormalities of the breast tissue appreciated on exam. No axillary adenopathy. Differential diagnosis includes but is not limited to ACS, PE, costochondritis, pneumothorax, esophageal spasm. Based on these concerns, I ordered cardiac workup, D-dimer, and provided the patient with anti-inflammatory medication. ECG personally interpreted demonstrates sinus tachycardia, rate 106, no interval abnormalities, no STEMI, normal axis, compared to most recent EKG completed on October 25, 2023, ECG is stable. Patient received IV fluids, Toradol for treatment. Labs personally reviewed demonstrate leukocytosis with WBC 16.3, no anemia, hemoglobin 15.0, CMP with potassium 3.0, sodium normal, chloride normal, BUN and creatinine 13, 0.70 respectively. Nonactionable. LFTs within normal limits. D-dimer negative at 0.44, nonactionable. Reassuring against PE. Initial troponin undetectably low at less than 0.01. XR personally interpreted demonstrates no lobar infiltrate, no pneumothorax, no pleural effusion. See radiology read for final interpretation. Patient was placed in ED observation at 0429 for serial troponins and electrolyte repletion. Serial troponins will help rule out evolving DE and hopefully prevent unnecessary admission and IV electrolyte repletion will result in quicker correction of abnormalities. 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 Her symptoms improved, she remained hemodynamically sta ble, her tachycardia resolved. Patient did state that as she ambulated to the bathroom that she had slight increase in her left-sided chest pain. She stated that it increased from a 3 to a 4 after ambulation. She did not become hypoxic or tachycardic during ambulation. I performed soft tissue ultrasound of the left breast and do not appreciate any area concerning for infection. See procedure note for details. Ultimately mammogram would better further evaluate left breast pain and patient should follow-up with primary care physician for this purpose. Of note, the small area of redness over the left lower outer quadrant of the left breast that was present on initial exam is now absent. Patient was handed off to Dr. Meier while in ED observation status pending completion of IV electrolyte repletion and repeat troponin. <Ayan Meier MD - Last Filed: 10/31/23 07:45> Vital Signs Vital Signs: 10/31/23 03:52 10/31/23 04:02 10/31/23 03:51 Temperature 97.8 F Temperature Source Oral Pulse Rate 102 H 101 H Pulse Rate [Right Radial] 102 H Respiratory Rate 24 18 Blood Pressure 174/100 H Blood Pressure [Right Arm] 174/101 H Blood Pressure Mean 116 Blood Pressure Mean [Right Arm] 125 Blood Pressure Source [Right Arm] Automatic Cuff Blood Pressure Position [Right Arm] Supine 02 Sat by Pulse Oximetry 97 97 Oxygen Delivery Method Room Air Room Air 10/31/23 04:30 10/31/23 05:04 10/31/23 05:30 Temperature Temperature Source Pulse Rate 92 H 81 82 Pulse Rate [Right Radial] Respiratory Rate 22 18 16 Blood Pressure 143/82 H 152/92 H 166/103 H Blood Pressure [Right Arm] Blood Pressure Mean 120 119 Blood Pressure Mean [Right Arm] Blood Pressure Source [Right Arm] Blood Pressure Position [Right Arm] 02 Sat by Pulse Oximetry 95 95 96 Oxygen Delivery Method Room Air Room Air 10/31/23 06:15 10/31/23 06:45 10/31/23 07:00 Temperature Temperature Source Pulse Rate 78 79 77 Pulse Rate [Right Radial] Respiratory Rate 22 17 17 Blood Pressure 152/84 H 179/91 H 179/109 H Blood Pressure [Right Arm] Blood Pressure Mean Blood Pressure Mean [Right Arm] Blood Pressure Source [Right Arm] Blood Pressure Position [Right Arm] 02 Sat by Pulse Oximetry 96 97 97 Oxygen Delivery Method Lab Data Labs: Lab Results 10/31/23 03:45: WBC 16.3 H, RBC 4.92, Hgb 15.0, Hct 45.9, MCV 93.4, MCH 30.6, MCHC 32.7, RDW 13.2, Plt Count 332, MPV 7.6, Neut % (Auto) 51.9, Lymph % (Auto) 40.5, [place] % (Auto) 3.6, Eos % (Auto) 3.3, Baso % (Auto) 0.8, Neut # (Auto) 8.5 H, Lymph # (Auto) 6.6 H, [place] # (Auto) 0.6, Eos # (Auto) 0.5 H, Baso # (Auto) 0.1, Total Counted 100, Neutrophils % (Manual) 45, Lymphocytes % (Manual) 51 H, Monocytes % (Manual) 2, Eosinophils % (Manual) 2, Platelet Estimate Normal, RBC Morphology Normal, D-Dimer 0.44, Sodium 137, Potassium 3.0 L, Chloride 104, Carbon Dioxide 28, Anion Gap 8.0, BUN 13, Creatinine 0.70, Estimated Creat Clear 120, Estimated GFR 88, Est GFR ( Amer) 106, Glucose 96, Calcium 8.7, Total Bilirubin 0.3, AST 24, ALT 26, Alkaline Phosphatase 114, Troponin I < 0.01, Total Protein 7.3, Albumin 4.3, Globulin 3.0, Albumin/Globulin Ratio 1.4 10/31/23 06:59: Troponin I < 0.01 Response Orders (Tests/Meds): ED MEDICATIONS Generic Name Dose Route Start Last Admin Trade Name Freq PRN Reason Stop Dose Admin Lactated Ringer's 500 mls @ 250 mls/hr 10/31/23 06:05 10/31/23 06:12 Lactated Ringer's 500ml IV 10/31/23 08:04 250 mls/hr .Q2H ONE Administration Discontinued Medications Generic Name Dose Route Start Last Admin Trade Name Freq PRN Reason Stop Dose Admin Lactated Ringer's 1,000 mls @ 999 mls/hr 10/31/23 03:58 10/31/23 04:09 Lactated Ringer's 1000 Ml Bag IV 10/31/23 04:58 999 mls/hr .Q1H1M ONE Administration Potassium Chloride/Water 100 mls @ 100 mls/hr 10/31/23 04:15 10/31/23 06:38 Potassium Chloride 10meq/100ml Ivpb IV 10/31/23 07:14 100 mls/hr Q1H PAYAL Administration Ketorolac Tromethamine 15 mg 10/31/23 03:57 10/31/23 04:08 Ketorolac 30mg/Ml Vial IV 10/31/23 03:58 15 mg ONCE ONE Administration Potassium Chloride 40 meq 10/31/23 04:11 10/31/23 04:15 Potassium Chloride 20meq Tab PO 10/31/23 04:12 40 meq ONCE ONE Administration ORDERS Category Date Time Status CXR --portable [XR chest portable] Stat Exams 10/31/23 03:57 Completed POCUS Point of Care (ER Only) Stat Exams 10/31/23 06:19 Ordered CBC w/Auto Diff [Complete Blood Count Auto Diff] Stat Lab 10/31/23 03:45 Completed CMP [Comprehensive Metabolic Panel] Stat Lab 10/31/23 03:45 Completed D-Dimer Stat Lab 10/31/23 03:45 Completed Trop I [Troponin I] Stat Lab 10/31/23 03:45 Completed Troponin I Q3H Lab 10/31/23 06:59 Completed Troponin I Q3H Lab 10/31/23 10:00 Ordered ECG initial [place] Routine Y 10/31/23 03:48 Completed MDM Narrative Medical Decision Narrative: In summary, this 53year old female presents to the emergency department today with chest pain, abnormal left breast sensation. On initial evaluation patient is hemodynamically stable, afebrile, she does have mild tachycardia with heart rate in the low 100s saturating 97% on room air, lungs clear to auscultation bilaterally, 2+ pulses throughout, no abnormalities on cardiopulmonary exam. E xam of the chest wall demonstrates tenderness along the left costochondral junction in the area where patient describes pain, left breast exam also demonstrates slight superficial skin abnormality with small patch of rash that blanches and has no other skin changes, no other abnormalities of the breast tissue appreciated on exam. No axillary adenopathy. Differential diagnosis includes but is not limited to ACS, PE, costochondritis, pneumothorax, esophageal spasm. Based on these concerns, I ordered cardiac workup, D-dimer, and provided the patient with anti-inflammatory medication. ECG personally interpreted demonstrates sinus tachycardia, rate 106, no interval abnormalities, no STEMI, normal axis, compared to most recent EKG completed on October 25, 2023, ECG is stable. Patient received IV fluids, Toradol for treatment. Labs personally reviewed demonstrate leukocytosis with WBC 16.3, no anemia, hemoglobin 15.0, CMP with potassium 3.0, sodium normal, chloride normal, BUN and creatinine 13, 0.70 respectively. Nonactionable. LFTs within normal limits. D-dimer negative at 0.44, nonactionable. Reassuring against PE. Initial troponin undetectably low at less than 0.01. XR personally interpreted demonstrates no lobar infiltrate, no pneumothorax, no pleural effusion. See radiology read for final interpretation. Patient was placed in ED observation at 0429 for serial troponins and electrolyte repletion. Serial troponins will help rule out evolving DE and hopefully prevent unnecessary admission and IV electrolyte repletion will result in quicker correction of abnormalities. 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 Her symptoms improved, she remained hemodynamically stable, her tachycardia resolved. Patient did state that as she ambulated to the bathroom that she had slight increase in her left-sided chest pain. She stated that it increased from a 3 to a 4 after ambulation. She did not become hypoxic or tachycardic during ambulation. I performed soft tissue ultrasound of the left breast and do not appreciate any area concerning for infection. See procedure note for details. Ultimately mammogram would better further evaluate left breast pain and patient should follow-up with primary care physician for this purpose. Of note, the small area of redness over the left lower outer quadrant of the left breast that was present on initial exam is now absent. Patient was handed off to Dr. Meier while in ED observation status pending completion of IV electrolyte repletion and repeat troponin. Renea: I assume primary responsibility for this patient after signout from previous physician. Patient receiving potassium on my evaluation, stating it was burning, so IV was replaced. Potassium restarted. Patient does have a mild leukocytosis at 16.3 with elevated neutrophils, lymphocytes, and eosinophils, but overall nonactionable. This should be followed up with PCP. D-dimer negative at 0.44. Potassium low at 3.0, this was repleted orally and IV. Kidney function normal. Delta troponin negative. Chest x-ray without acute cardiopulmonary space disease. Patient was placed in observation beginning at 4:29 AM (as per above) in order to rule out delta troponins and determine need for admission versus home-going. The patient was provided serial exams, cardiac monitoring and handed off to me while awaiting results. Independent interpretation of results demonstrated negative delta troponin, negative cardiac workup overall. On reevaluation, patient resting comfortably in bed. At this time, I feel patient is appropriate for discharge home, especially given she has cardiac workup with cardiology scheduled in the near future. Total observation time 3 hours and 15 minutes. Because patient at baseline without signs or symptoms of clinical decompensation, deemed appropriate for discharge. Results were relayed to patient who voiced understanding and were agreeable to outpati ent management and follow up. At the time of discharge the patient was hemodynamically stable, tolerating PO, and mobilizing appropriately.
--- NOTE | 2023-10-31 03:57 | XR_ITS ---
PROCEDURE INFORMATION: Exam: XR Chest Exam date and time: 10/31/2023 3:59 AM Age: 53 years old Clinical indication: Pain; Chest pressure; Additional info: Cp TECHNIQUE: Imaging protocol: Radiologic exam of the chest. Views: 1 view. COMPARISON: CR XR CHEST 2V 10/25/2023 2:27 PM FINDINGS: Lungs: Unremarkable. No consolidation. Pleural spaces: Unremarkable. No pleural effusion. No pneumothorax. Heart/Mediastinum: Unremarkable. No cardiomegaly. Bones/joints: Unremarkable. IMPRESSION: No acute findings.
[2023-10-31 04:04] LABS: Basophils # 0.1 K/mm3 (0-0.2); Basophils % 0.8 % (0.1-2.0); Eosinophils # 0.5 K/mm3 (0.0-0.4); Eosinophils % 3.3 % (0.1-12.0); Hematocrit 45.9 % (37.0-47.0); Lymphocytes # 6.6 K/mm3 (0.7-4.5); Lymphocytes % 40.5 % (10-50); Mean Corpuscular HGB Conc 32.7 g/dL (31.8-35.4); Mean Corpuscular Hemoglobin 30.6 pg (27.0-31.2); Mean Corpuscular Volume 93.4 fl (81-99); Mean Platelet Volume 7.6 fl (7.4-10.4); Monocytes # 0.6 K/mm3 (0.1-1.0); Monocytes % 3.6 % (1.7-9.3); Neutrophils # 8.5 K/mm3 (1.8-7.8); Neutrophils % 51.9 % (37.0-80.0); Platelet Count 332 K/mm3 (142-424); Red Blood Count 4.92 M/mm3 (4.20-5.40); Red Cell Distribution Width 13.2 % (11.5-17.5); White Blood Count 16.3 K/mm3 (4.8-10.8)
[2023-10-31 04:05] LABS: MANUAL DIFFERENTIAL MANUAL DIFFERENTIAL (MANUAL DIFF)
[2023-10-31] MEDS: KETOROLAC 30MG/ML VIAL 15 MG IV (04:08)
[2023-10-31] MEDS: LACTATED RINGERS 1000ML 1,000 ML 999 ML IV (04:09)
[2023-10-31 04:10] LABS: Alanine Aminotransferase 26 U/L (12-78); Albumin Level 4.3 g/dl (3.5-5.0); Albumin/Globulin Ratio 1.4 (1.1-1.8); Alkaline Phosphatase 114 U/L (38-126); Aspartate Amino Transferase 24 U/L (14-36); Bilirubin,Total 0.3 mg/dl (0.2-1.3); Blood Urea Nitrogen 13 mg/dl (7-17); Calcium 8.7 mg/dl (8.4-10.2); Carbon Dioxide 28 mmol/L (22.0-30.0); Chloride 104 mmol/L (98-107); Creatinine Clearance Estimated 120 mL/min (50-200); Estimated Glomerular Filt Rate 88 ml/min (>60); GFR (African American) 106 ML/MIN (>60); Glucose 96 mg/dl (74-100); Sodium 137 mmol/L (136-145); Total Protein,Serum 7.3 g/dl (6.3-8.2)
[2023-10-31 04:15] LABS: D-Dimer 0.44 ug/mL (0.0-0.5)
[2023-10-31] MEDS: POTASSIUM CHLORIDE 20MEQ TAB 40 MEQ PO (04:15)
[2023-10-31] MEDS: KCl 10mEq/100ml 100 ML 100 MEQ IV ×3 (04:16→06:38)
[2023-10-31 04:27] LABS: Troponin I < 0.01 ng/ml (0.00-0.034)
[2023-10-31 04:42] LABS: Eosinophils % 2 % (0-3); Lymphocytes % 51 % (10-50); Monocytes % 2 % (2-9); Neutrophils % 45 % (42-76); Total Cells Counted 100
[2023-10-31 04:43] LABS: Platelet Estimate Normal; RBC Morphology Normal
[2023-10-31] MEDS: RINGERS SOLUTION,LACTATED 500 ML 250 ML IV (06:12)
[2023-10-31 07:26] LABS: Troponin I < 0.01 ng/ml (0.00-0.034)
--- NOTE | 2023-10-31 07:50 | PC.NURSE ---
pt ambulated to restroom and back to room
== END 2023-10-31 08:12 | disposition home or self-care (01) ==
PROVIDERS: Emergency Medicine; Emergency Provider Emergency Medicine
DX: R07.89 Other chest pain (principal); R00.0 Tachycardia, unspecified; F17.210 Nicotine dependence, cigarettes, uncomplicated
CPT/HCPCS: 71045; 80053; 84484; 85007; 85025; 85378; 93005; 96361; 96365; 96366; 96375; 99285

== ENCOUNTER 2023-11-02 08:13 | Outpatient (CLI) | payer OTHER, SELFPAY ==
--- NOTE | 2023-11-02 08:13 | CA_ITS ---
APPROVED REPORT EXAM: Comprehensive 2D, Doppler, and color-flow Echocardiogram Shipyard Supervisor: Maria T Hernandez RVT Ht: 5 ft 3 in Wt: 180lbs BSA: 1.85 BP: 151/94 mmHg Indications: SOA,CP,SMOKER,TACHYCARDIA 2D Dimensions LA Volume 23.00 mL LA Volume Index 12.43 mL/m2 (M/F) 16-34 M-Mode Dimensions RVDd 2.81 cm (0.9-2.6) LA Diam 3.09 cm (1.9-4.0) LVDd 3.30 cm (3.5-5.7) LVDs 2.35 cm (3.5-5.7) IVSd 1.25 cm (0.6-1.1) PWd 0.57 cm (0.6-1.1) EF (Teich) 56.70% FS 28.80% EDV (Teich) 44.10 mL TAPSE 2.42 (<1.7) ESV (Teich) 19.10 mL LV Diastology E Decel Time 150 (160-240 msec) E/A Ratio 0.8 Aortic Valve GALEN Index 1.29 cm2/m2 AoV Peak Wilian. 136.0 (50-130 cm/s) AO Peak GR. 7.40 mmHg AO Mean GR. 3.60 (<5 mmHg) AO VTI 25.1 (18-25 cm) GALEN (VTI) 2.44 (2.5-4.5 cm2) Mitral Valve MV E Max Wilian. 69.0 (40-130 cm/s) MV A Velocity 91.0 (40-130 cm/s) E/A Ratio 0.75 MV PHT 44.0 ms Pulmonary Valve PV Peak Velocity 82.0 (50-150 cm/s) Left Ventricle The left ventricle is normal size. The left ventricular systolic function is normal. The left ventricular ejection fraction is within the normal range. There is normal left ventricular wall thickness. There is normal LV segmental wall motion. The left ventricular diastolic function is normal. LVEF is 55%. Right Ventricle The right ventricle is normal size. The right ventricular systolic function is normal. Atria The left atrium size is normal. The right atrium size is normal. There is no Doppler evidence of interatrial shunt. Aortic Valve The aortic valve is normal in structure. There is no aortic valvular stenosis. No aortic regurgitation is present. Mitral Valve The mitral valve is normal in structure. No evidence of mitral valve stenosis. There is no mitral valve regurgitation noted. Tricuspid Valve The tricuspid valve leaflets are thin and pliable. Trace tricuspid regurgitation. There is insufficient TR jet to estimate RVSP. Pulmonic Valve The pulmonary valve is normal in structure. Trace pulmonic regurgitation. Great Vessels The aortic root is normal in size. The ascending aorta is normal in size. IVC is normal in size and collapses >50% with inspiration. Pericardium There is no pericardial effusion. Other Information Study Quality: Adequate Conclusion Normal biventricular systolic function. No significant valvular stenosis or regurgitation. Electronically signed by : Enma Harvey MD 11/05/2023 15:51:28
== END 2023-11-02 23:59 ==
LOC: RT 08:13
PROVIDERS: Visit Provider Internal Medicine
DX: R00.0 Tachycardia, unspecified (principal); R06.00 Dyspnea, unspecified; R07.9 Chest pain, unspecified
CPT/HCPCS: 93306

== ENCOUNTER 2024-08-03 15:54 | Outpatient (CLI) | payer OTHER, SELFPAY | END 2024-08-03 23:59 | disposition home or self-care (01) | LOC: LAB.DROPOF 15:55 | PROVIDERS: PCP Internal Medicine Adolescent Medicine; Visit Provider Physician Assistant | DX: N30.90 Cystitis, unspecified without hematuria (principal) | CPT/HCPCS: 87086 ==

== ENCOUNTER 2024-09-28 08:59 | Emergency (ER) | payer OTHER, SELFPAY ==
[2024-09-28 09:37] VITALS: BP 155/81; PULSE 91; RESP 20; TEMP 36.9; O2SAT 97; BMI 29.4
--- NOTE | 2024-09-28 09:39 | ED_ITS ---
Discharge Plan Disposition Patient Disposition: Home, Self-Care Condition: Good Prescriptions Prescriptions: New azithromycin [Zithromax] 250 mg tablet 250 mg PO UD DOSE PK Qty: 6 0RF Rx Instructions: Take two (2) tablets today, then one (1) tablet days #2 thru #5 benzonatate 100 mg capsule 100 mg PO TIDP PRN (Reason: Cough) Qty: 30 0RF methylprednisolone 4 mg Tablets,Dose Pack 4 mg PO DIRECTED 6 Days Qty: 21 0RF Rx Instructions: Take 1 pack as directed for 6 days No Action levothyroxine [Synthroid] 112 mcg tablet 112 mcg PO ONCE omeprazole 40 mg capsule,delayed release(DR/EC) 40 mg PO DAILY Qty: 90 3RF amlodipine 2.5 mg tablet 2.5 mg PO DIRECTED Patient Comments: TAKE 1 TABLET BY MOUTH DAILY venlafaxine 75 MG capsule,extended release 24hr 75 mg PO DAILY trazodone 50 MG tablet 50 mg PO QHS Referrals Follow up/Referrals: Varghese Grande MD [Primary Care Provider] - See instructions Activity Restrictions/Add. Instructions Additional Instructions/Restrictions: Drink plenty of fluids. Take tylenol or ibuprofen for pain or fever. Take the medications as directed. Follow up with your regular doctor. GO TO THE ER FOR ANY WORSENING SYMPTOMS Don't start the oral steroids (medrol dose pack) until tomorrow since you had the shot here Clinical Impressions Clinical Impression: Sinusitis Qualifiers: Sinusitis location: unspecified location Chronicity: unspecified Qualified Code(s): J32.9 - Chronic sinusitis, unspecified Instructions Patient Instructions: Sinusitis, DI for Sinusitis Print Language Print Language: Japanese Discharge ED Provider: Emerson Espinoza [facility] HPI General Stated complaint: sore throat, congestion, headache Mode of Arrival: Ambulatory Source of Information: Patient Time Seen by Provider: 09/28/24 09:39 Description of Symptoms (Recalled from Triage Doc. by RN): SORE THROAT, HEAD CO NGESTION, COUGH HEENT Symptoms (Recalled from RN notes): Yes Resp Symptoms (Recalled from RN notes): Yes Skin Symptoms (Recalled from RN notes): No MS Symptoms (Recalled from RN notes): No Functional Status (Recalled from RN notes): WNL Related Data Home Medications ?Medication ?Instructions ?Recorded ?Confirmed levothyroxine 112 mcg tablet 112 mcg PO ONCE THYROID 01/27/18 09/28/24 (Synthroid) trazodone 50 mg tablet 50 mg PO QHS SLEEP 01/22/20 09/28/24 venlafaxine 75 mg capsule,extended 75 mg PO DAILY MOOD 01/22/20 09/28/24 release 24 hr amlodipine 2.5 mg tablet 2.5 mg PO DIRECTED 09/28/24 09/28/24 Previous Rx's ?Medication ?Instructions ?Recorded omeprazole 40 mg capsule,delayed 40 mg PO DAILY #90 caps 10/26/23 release azithromycin 250 mg tablet 250 mg PO UD DOSE PK #6 tabs 09/28/24 (Zithromax) benzonatate 100 mg capsule 100 mg PO TIDP PRN Cough #30 caps 09/28/24 methylprednisolone 4 mg tablets in 4 mg PO DIRECTED 6 days #21 tabs 09/28/24 a dose pack Allergies Allergy/AdvReac Type Severity Reaction Status Date / Time amoxicillin Allergy Severe Swelling Verified 10/26/23 13:20 of Lip/Tongue/Throat sulfamethoxazole (From Allergy Unknown she states Verified 10/26/23 13:20 BACTRIM) that down in her ear would itch trimethoprim (From BACTRIM) Allergy Unknown Verified 10/26/23 13:20 Penicillins Allergy Verified 10/26/23 13:20 Sulfa (Sulfonamide Allergy Verified 10/26/23 13:20 Antibiotics) Worker's Comp Is this a Worker's Comp case?: No [facility] Disclaimer: The information contained in this section may have been updated after the patient was seen, as this information can be updated by other users. Medical History (Updated 09/28/24 @ 10:16 by Emerson Espinoza APRN) Tachycardia Social History Smoking Status: Current every day smoker tobacco type: cigarettes packs per day: 1 second hand exposure: Yes alcohol intake: never substance use type: denies use current occupational status: other household members: spouse housing: house number of children: 3 caffeine: Yes ROS Obtained: Yes All systems reviewed & no additional complaints except as documented Constitutional Constitutional: Reports poor appetite Eyes Eyes: Reports system reviewed and no additional complaints, except as documented ENT Ears, Nose, Mouth, and Throat: Reports as per HPI Cardiovascular Cardiovascular: Reports system reviewed and no additional complaints, except as documented and Denies chest pain Respiratory Respiratory: Denies shortness of breath, Denies chest congestion, Reports cough, Denies stridor and Denies wheezing Gastrointestinal Gastrointestingal: Reports system reviewed and no additional complaints, except as documented; Denies abdominal pain, diarrhea or vomiting Musculoskeletal Musculoskeletal: Reports system reviewed and no additional complaints, except as documented and Denies arthralgias Integumentary/Breasts Skin/Breast: Reports system reviewed and no additional complaints, except as documented and Denies rash Neurologic Neurologic: Denies paresthesias Allergic/Immunologic Allergic/Immunologic: Denies wheezing Physical Exam General General appearance: alert and in no apparent distress Eye Eye exam: Present normal appearance, PERRL and EOMI ENT ENT exam: Present mucous membranes moist and normal external ear exam Expanded ENT Exam External ear exam: Present normal external inspection TM/Canal exam: Bilateral TM: erythema and bulging Nose exam: Absent sinus tenderness Nasal speculum exam: Bilateral: normal Mouth exam: Present normal external inspection; Absent drooling Teeth exam: Present normal inspection Throat exam: Present tonsillar erythema and tonsillomegaly Neck Neck exam: Present normal inspection, full ROM and trachea midline; Absent tenderness, lymphadenopathy or thyromegaly Chest Chest inspection: Present normal inspection and symmetric chest wall rise; Absent tenderness or rash Respiratory Respiratory exam: Present normal lung sounds bilaterally; Absent respiratory distress, wheezes, stridor or accessory muscle use Cardiovascular Cardiovascular exam: Present regular rate, normal rhythm and normal heart sounds Abdominal Exam Abdominal exam: Present soft; Absent distention, tenderness, guarding, rebound or rigidity Extremities Exam Extremities exam: Present normal inspection, full ROM and normal capillary refill; Absent tenderness or calf tenderness Back Exam Back exam: Present normal inspection and full ROM; Absent tenderness Neurological Exam Neurological exam: Present alert and oriented X3 Psychiatric Psychiatric exam: Present normal affect and normal mood Skin Skin exam: Present warm, dry, intact and normal color Lymphatic Lymphatic Findings: no adenopathy Medical Decision Making Medical Records Medical records reviewed: No I reviewed the patient's medical records. Screening: Per USPSTF and CDC recommendations, given the prevalence of disease in our region, it is our hospital?s policy to screen for HIV and viral Hepatitis for all patients aged 18 and over and those with ongoing risk factors. [place] Inquiry Pt receiving controlled substance: No Vital Signs: 09/28/24 09:37 Temperature 98.4 F Temperature Source Oral Pulse Rate [Left Radial] 91 H Respiratory Rate 20 Blood Pressure [Left Arm] 155/81 H Blood Pressure Mean [Left Arm] 105 02 Sat by Pulse Oximetry 97
[2024-09-28 09:49] LABS: UTC Strep Screen (Rapid) Negative (Negative)
[2024-09-28] MEDS: DEXAMETHASONE 4MG/ML 1ML VIAL 8 MG IM (10:21)
[2024-09-28 10:25] VITALS: BP 155/81; PULSE 91; RESP 20; TEMP 36.9
== END 2024-09-28 10:32 | disposition home or self-care (01) ==
PROVIDERS: Emergency Provider Nurse Practitioner Family; PCP Internal Medicine Adolescent Medicine
DX: J32.9 Chronic sinusitis, unspecified (principal); R07.0 Pain in throat; R09.81 Nasal congestion; R51.9 Headache, unspecified; R05.9 Cough, unspecified
CPT/HCPCS: 87880; 99212; G0381; J1100

== ENCOUNTER 2024-10-19 11:43 | Outpatient (CLI) | payer OTHER, SELFPAY ==
--- NOTE | 2024-10-19 11:47 | XR_ITS ---
FINAL REPORT CLINICAL HISTORY: COUGH WHEEZING COMPARISON: 10/31/2023 FINDINGS: No acute pulmonary density is evident. There is no evidence of effusion or other pleural disease. The mediastinum has a normal appearance. The cardiac silhouette is unremarkable. IMPRESSION: Unremarkable chest exam. Reviewed, Interpreted and Dictated by Dany Langford MD Transcribed by Makeda Schwartz Authenticated and [facility]
== END 2024-10-19 23:59 | disposition home or self-care (01) ==
LOC: RAD 11:44
PROVIDERS: PCP Nurse Practitioner Family; Visit Provider Nurse Practitioner Family
DX: R05.3 Chronic cough (principal); R06.2 Wheezing
CPT/HCPCS: 71046

== ENCOUNTER 2024-12-14 14:47 | Outpatient (CLI) | payer OTHER, SELFPAY ==
--- NOTE | 2024-12-14 14:49 | US_ITS ---
PROCEDURE: US TRANSVAGINAL CLINICAL INDICATION: LOWER ABD PAIN COMPARISON: CT CT ABDOMEN PELVIS WO/W CON from 12/24/2019 FINDINGS: Transvaginal and transabdominal sonographic images of the pelvis were obtained. UTERUS: 5.1cm x 4.0cmx 3.1cm anteverted/axial with a combined endometrial thickness of 7.4mm. The endometrium is not well visualized due to the axial position of the uterus. There are echogenic areas within the cervix of unknown etiology. LEFT OVARY: 1.7 cmx1.5cmx0.9cm with a volume of 1.2ml. Only seen transabdominally. RIGHT OVARY: Not visualized Left ovary is seen and appears atrophic.. Doppler flow to left ovary is seen. There is no fluid in the cul-de-sac. IMPRESSION: 1. Anteverted and axial small uterus. The endometrium measures 7.4 mm. The endometrium is not well visualized. Within the cervix there are echogenic areas. Etiology is not clear. See images 8-12. Examination of the uterus was difficult due to its axial position. 2. The left ovary is seen and appears small and atrophic. It is only seen transabdominally. 3. The right ovary is not visualized. 4. No fluid in the cul-de-sac. Dictated by: Edmond Cid MD 12/15/2024 09:09 Edmond Cid MD in OV 12/15/2024 09:09
== END 2024-12-14 23:59 | disposition home or self-care (01) ==
LOC: RAD 14:47
PROVIDERS: PCP Nurse Practitioner Family; Visit Provider Nurse Practitioner Family
DX: R10.30 Lower abdominal pain, unspecified (principal)
CPT/HCPCS: 76830

== ENCOUNTER 2024-12-27 08:16 | Outpatient (CLI) | payer OTHER, SELFPAY ==
[2024-12-27 08:52] LABS: Basophils # 0.1 K/mm3 (0-0.2); Basophils % 0.6 % (0.1-2.0); Eosinophils # 0.2 K/mm3 (0.0-0.4); Eosinophils % 1.5 % (0.1-12.0); Hematocrit 42.2 % (37.0-47.0); Lymphocytes # 4.5 K/mm3 (0.7-4.5); Mean Corpuscular HGB Conc 33.2 g/dL (31.8-35.4); Mean Corpuscular Hemoglobin 30.1 pg (27.0-31.2); Mean Corpuscular Volume 90.8 fl (81-99); Mean Platelet Volume 9.3 fl (7.4-10.4); Monocytes # 0.5 K/mm3 (0.1-1.0); Monocytes % 4.8 % (1.7-9.3); Neutrophils # 5.7 K/mm3 (1.8-7.8); Neutrophils % 51.9 % (37.0-80.0); Platelet Count 383 K/mm3 (142-424); Red Blood Count 4.65 M/mm3 (4.20-5.40); Red Cell Distribution Width 12.3 % (11.5-17.5)
[2024-12-27 09:09] LABS: 25-OH Vitamin D, Total 45.3 ng/mL (30-100)
[2024-12-27 09:21] LABS: Alanine Aminotransferase 23 U/L (12-78); Albumin Level 4.7 g/dl (3.5-5.0); Alkaline Phosphatase 94 U/L (38-126); Anion Gap 8.4 mEq/L (5-15); Aspartate Amino Transferase 20 U/L (14-36); Bilirubin,Total 0.4 mg/dl (0.2-1.3); Blood Urea Nitrogen 12 mg/dl (7-17); Calcium 9.8 mg/dl (8.4-10.2); Carbon Dioxide 31 mmol/L (22.0-30.0); Chloride 102 mmol/L (98-107); Chol/HDL Ratio 3.3 (1-3.5); Cholesterol 246 mg/dl (140-200); Estimated Glomerular Filt Rate 87 ml/min (>60); GFR (African American) 106 ML/MIN (>60); Globulin 2.4 g/dL (1.3-3.2); Glucose 102 mg/dl (74-100); HDL Cholesterol 75 mg/dl (40-60); Potassium 4.4 mmoL/L (3.5-5.1); Sodium 137 mmol/L (136-145); Total Protein,Serum 7.1 g/dl (6.3-8.2); Triglycerides 86 mg/dl (30-150); VLDL Cholesterol 17 mg/dL (0-40)
[2024-12-27 09:32] LABS: Direct LDL Cholesterol 127.14 mg/dL (100-129)
[2024-12-27 09:37] LABS: Free T4 (Free Thyroxine) 1.13 ng/dl (0.78-2.19)
[2024-12-27 09:51] LABS: Thyroid Stimulating Hormone 6.54 uIU/mL (0.465-4.68)
== END 2024-12-27 23:59 | disposition home or self-care (01) ==
LOC: LAB 08:16
PROVIDERS: PCP Nurse Practitioner Family; Visit Provider Nurse Practitioner Family
DX: Z00.00 Encounter for general adult medical examination without abnormal findings (principal); E03.9 Hypothyroidism, unspecified; E78.5 Hyperlipidemia, unspecified; Z68.31 Body mass index [BMI] 31.0-31.9, adult; E66.9 Obesity, unspecified
CPT/HCPCS: 36415; 80053; 80061; 82306; 84439; 84443; 85025

== ENCOUNTER 2025-01-02 16:11 | Outpatient (CLI) | payer OTHER, SELFPAY ==
--- NOTE | 2025-01-02 16:16 | MM_ITS ---
PROCEDURE INFORMATION: Exam: MG Bilateral Screening 3D Mammography Exam date and time: 01/02/2025 4:24 PM Age: 54 years old Clinical indication: Screening. No family history of breast cancer. TECHNIQUE: Imaging protocol: Bilateral Screening tomosynthesis and 2D mammography including computer-aided detection (CAD) when performed. COMPARISON: 1. MG MM DIG SCREENING MAMM BI W/CAD 12/27/2022 5:00 PM 2. MG MM DIG MAMM DX UNILAT LT CAD 12/21/2019 2:46 PM 3. MG MM DIG SCREENING MAMM BI W/CAD 12/03/2019 9:11 AM 4. MG DXLT MM Dig mamm DX unilat LT CAD 12/25/2018 1:29 PM FINDINGS: MAMMOGRAPHY: Breast composition: There are scattered areas of fibroglandular density. Mass: No suspicious mass. Architectural distortion: None. Calcifications: No suspicious calcifications. Asymmetric density: None. Skin thickening: None. Axillary adenopathy: None. IMPRESSION: No mammographic evidence of malignancy. Annual screening is recommended unless otherwise clinically indicated. ASSESSMENT: BI-RADS Category 1: Negative.
== END 2025-01-02 23:59 | disposition home or self-care (01) ==
LOC: RAD 16:12
PROVIDERS: PCP Nurse Practitioner Family; Visit Provider Nurse Practitioner Family
DX: Z12.31 Encounter for screening mammogram for malignant neoplasm of breast (principal)
CPT/HCPCS: 77063; 77067

== ENCOUNTER 2025-07-22 11:45 | Outpatient (CLI) | payer OTHER, SELFPAY ==
--- OUTSIDE RECORDS SUMMARY | 2025-07-22 11:48 | XMS_ITS | Clinical Summary ---
Author Organization [facility] Address [address] [place] [id number] Phone [email or web address] Care Team Providers Care Telephone Coin Box Collector Name Role Phone Unavailable Primary Care Provider Unavailabl e Allergies Active Allergy Reactions Criticality Noted Date Comments Sulfamethoxazole-Trimet hoprim Other (see comments) 12/11/2020 burning in ears and face turned red Penicillins 06/23/2021 Medications levothyroxine (SYNTHROID) 112 MCG tablet Take 112 mcg by mouth 1 (one) time each day. 0 Active traZODone (DESYREL) 50 MG tablet Take 50 mg by mouth every night. 1 Active venlafaxine XR (EFFEXOR-XR) 150 MG 24 hr capsule 1 Active omeprazole (PriLOSEC) [address] capsule Take by mouth 1 (one) time each day. 1 Active loratadine (CLARITIN) 10 MG tablet Take 10 mg by mouth 1 (one) time each day. 1 Active nicotine (NICODERM CQ) 21 MG/24HR APPLY 1 PATCH TOPICALLY TO THE SKIN EVERY DAY 1 Active benzonatate (TESSALON) 100 MG capsule 1 Active fluticasone (FLONASE) 50 MCG/ACT nasal spray SHAKE LIQUID AND USE 1 SPRAY IN EACH NOSTRIL TWICE DAILY 1 Active azithromycin (ZITHROMAX) 250 MG tablet 1 Active Active Problems No known active problems Social History Tobacco Use Types Packs/Day Years Used Date Smoking Tobacco: Every Day Cigarettes Smokeless Tobacco: Never Intimate Partner Violence Answer Date R ecorded Insults You Not on file 02/14/2021 Threatens You Not on file 02/14/2021 Screams at You Not on file 02/14/2021 Physically Hurt Not on file 02/14/2021 Intimate Partner Violence Score Not on file 02/14/2021 Stress Answer Date Recorded Stress in your Life Not on file 09/05/2024 Dealing with Stress 3 09/05/2024 Comments Unknown Sex and Gender Information Value Date Recorded Sex Assigned at Not on file 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 Gender Identity Not on file Sexual Orientation Not on file Last Filed Vital Signs Vital Sign Reading Time Taken Comments Blood Pressure - - Pulse 90 03/11/2021 7:30 AM EDT Temperature 36.2 C (97.2 F) 03/11/2021 7:30 AM EDT Respiratory Rate - - Oxygen Saturation 94% 03/11/2021 7:30 AM EDT Inhaled Oxygen Concentration - - Weight - - Height - - Body Mass Index - - Plan of Treatment Health Maintenance Due Date Last Done Comments CT Colonography 1970 Cervical Cancer Screening Combo 1970 Colonoscopy 1970 Colorectal Cancer Screening Combo 1970 DNA Cologuard 1970 Dental Cleaning/Exam 1970 FIT or FOBT Test 1970 HIV Screening 1970 HPV / Cotest 1970 Hepatitis C Screening 1970 Pap Testing 1970 Sigmoidoscopy 1970 Asthma Spirometry 1975 Annual Preventive Exam 1988 Hep B Infection Screening - Triple Screen 1988 Hepatitis B Immunization (1 of 3 - 19+ 3-dose series) 1989 Pneumococcal Immunization (1 of 2 - PCV) 1989 Tetanus Diphtheria and Pertu ssis Immunization (1 - Tdap) 1989 Breast Cancer Screening 2000 Zoster Immunization (1 of 2) 2020 Covid-19 Immunization (1 - 2 25 season) 2025 Influenza Immunization (#1) 2025 HIB Immunization Aged Out No longer e ligible based on patient's age to complete this topic HPV Immunization Aged Out No longer e ligible based on patient's age to complete this topic Hepatitis A Immunization Aged Out No longer eligible based on patient's age to complete this topic Polio Immunization Aged Out No longer eligible based on patient's age to complete this topic Insurance OPT OUT NO COPAY NB
[2025-07-22 12:13] LABS: Hematocrit 41.4 % (37.0-47.0); Hemoglobin 13.7 g/dL (12.2-16.2); Immature Granulocytes % 0.1 %; Mean Corpuscular HGB Conc 33.1 g/dL (31.8-35.4); Mean Corpuscular Hemoglobin 29.9 pg (27.0-31.2); Mean Corpuscular Volume 90.4 fl (81-99); Nucleated Red Blood Cells % 0 %; Platelet Count 346 K/mm3 (142-424); Red Blood Count 4.58 M/mm3 (4.20-5.40); Red Cell Distribution Width-SD 41.6 fL; White Blood Count 9.7 K/mm3 (4.8-10.8)
[2025-07-22 13:01] LABS: Chloride 103 mmol/L (98-107)
[2025-07-22 13:02] LABS: Albumin Level 4.3 g/dl (3.5-5.0); Potassium 4.3 mmoL/L (3.5-5.1); Sodium 138 mmol/L (136-145)
[2025-07-22 13:04] LABS: Alanine Aminotransferase 15 U/L (12-78); Anion Gap 10.3 mEq/L (5-15); Aspartate Amino Transferase 18 U/L (14-36); Blood Urea Nitrogen 11 mg/dl (7-17); Carbon Dioxide 29 mmol/L (22.0-30.0); Creatinine,Serum 0.80 mg/dl (0.52-1.04); Estimated Glomerular Filt Rate 75 ml/min (>60); GFR (African American) 90 ML/MIN (>60)
[2025-07-22 13:05] LABS: Albumin/Globulin Ratio 1.7 (1.1-1.8); Alkaline Phosphatase 90 U/L (38-126); Bilirubin,Total 0.4 mg/dl (0.2-1.3); Calcium 9.8 mg/dl (8.4-10.2); Globulin 2.5 g/dL (1.3-3.2); Glucose 93 mg/dl (74-100); Total Protein,Serum 6.8 g/dl (6.3-8.2)
[2025-07-22 13:31] LABS: Thyroid Stimulating Hormone 1.00 uIU/mL (0.465-4.68)
[2025-07-22 13:51] LABS: Free T4 (Free Thyroxine) 1.68 ng/dl (0.78-2.19)
== END 2025-07-22 23:59 | disposition home or self-care (01) ==
LOC: LAB 11:46
PROVIDERS: PCP Nurse Practitioner Family; Visit Provider Nurse Practitioner Family
DX: E03.9 Hypothyroidism, unspecified (principal); D72.829 Elevated white blood cell count, unspecified
CPT/HCPCS: 36415; 80053; 84439; 84443; 85025

== ENCOUNTER 2025-07-27 18:22 | Emergency (ER) | payer OTHER, SELFPAY ==
[2025-07-27 19:31] VITALS: BP 153/83; PULSE 93; RESP 18; TEMP 36.8; O2SAT 95; BMI 30.9
--- OUTSIDE RECORDS SUMMARY | 2025-07-27 19:38 | XMS_ITS | Clinical Summary ---
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
--- NOTE | 2025-07-27 19:48 | CT_ITS ---
PROCEDURE INFORMATION: Exam: CT Abdomen And Pelvis With Contrast Exam date and time: 07/27/2025 8:37 PM Age: 54 years old Clinical indication: Other: Left sided abd pain, chills, HX diverticulitis TECHNIQUE: Imaging protocol: Computed tomography of the abdomen and pelvis with contrast. Radiation optimization: All CT scans at this facility use at least one of these dose optimization techniques: automated exposure control; mA and/or kV adjustment per patient size (includes targeted exams where dose is matched to clinical indication); or iterative reconstruction. Contrast material: ISOVUE; Contrast volume: 75 ml; Contrast route: IV; COMPARISON: CT ABDOMEN PELVIS WO/W CON 12/24/2019 12:39 PM FINDINGS: Lungs: Air trapping, atelectasis, scarring of the lung splenic granulomas. Heart: Base of heart is unremarkable as visualized. Liver: Normal. No mass. Gallbladder and biliary ducts: Normal. No calcified stones. No ductal dilation. Pancreas: Normal. No ductal dilation. Spleen: Normal. No splenomegaly. Adrenal glands: Normal. No mass. Kidneys and ureters: Normal. No hydronephrosis. Stomach and bowel: Small focus of inflammatory change adjacent the descending left colon with superimposed wall thickening and central diverticula consistent with diverticulitis. Appendix: No evidence of appendicitis. Intraperitoneal space: Unremarkable. No free air. No significant fluid collection. Vasculature: Unremarkable. No abdominal aortic aneurysm. Lymph nodes: Unremarkable. No enlarged lymph nodes. Urinary bladder: Unremarkable as visualized. Reproductive: Tubal ligation. Bones/joints: Degenerative changes of the spine. Soft tissues: Unremarkable. IMPRESSION: Diverticulitis of the left descending colon without rupture or abscess formation. Ensure proper colon cancer screening if pursued.
--- NOTE | 2025-07-27 19:54 | ED_ITS ---
<Statement entered by Kera Rodriguez DO - 07/28/25 01:05> I was consulted by the ENRIQUE, and we discussed the complexity of problems being addressed. I approve the treatment and management plan for this patient's care in the emergency department, thus performing a substantial portion of the medical decision making. Kera Rodriguez DO Discharge Plan Disposition Patient Disposition: Home, Self-Care Condition: Good Prescriptions Prescriptions: New metronidazole 500 mg tablet 500 mg PO BID 5 Days Qty: 10 0RF ciprofloxacin HCl 500 mg tablet 500 mg PO BID 5 Days Qty: 10 0RF No Action levothyroxine [Synthroid] 112 mcg tablet 112 mcg PO ONCE omeprazole 20 mg capsule,delayed release(DR/EC) PO Patient Comments: TAKE 1 CAPSULE BY MOUTH DAILY nicotine 14 mg/24 hr patch 24 hour 1 patch topical Patient Comments: APPLY 1 PATCH TRANSDERMALLY ONCE A DAY venlafaxine 150 mg capsule,extended release 24hr PO Patient Comments: TAKE 1 CAPSULE BY MOUTH DAILY albuterol sulfate [Ventolin HFA] 90 mcg/actuation HFA aerosol inhaler inhalation Patient Comments: INHALE 2 PUFFS BY MOUTH EVERY 6 HOURS NEEDED amlodipine 2.5 mg tablet 2.5 mg PO DIRECTED Patient Comments: TAKE 1 TABLET BY MOUTH DAILY trazodone 50 MG tablet 50 mg PO QHS Referrals Follow up/Referrals: Symone Anderson APRN [Primary Care Provider, Medical] - See instructions Activity Restrictions/Add. Instructions Additional Instructions/Restrictions: Take the antibiotics as prescribed. Return to the emergency department for any acute or worsening symptoms. Clinical Impressions Clinical Impression: Hypokalemia, Diverticulitis Instructions Patient Instructions: DI for Acute Abdominal Pain Print Language Print Language: Micronesian Discharge ED Provider: Kera Rodriguez General Adult HPI <Sera Vaughn APRN - Last Filed: 07/27/25 21:44> General Chief complaint: Abdominal Pain Stated complaint: pain in left side Time Seen by Provider: 07/27/25 19:39 Mode of Arrival: Ambulatory Source of Information: Patient Description of Symptoms (Recalled from ER Triage Doc. by RN): Pt presents with c/o left side pain radiating into left groin that began approx 6 days ago with associated nausea and constipation. Reports last normal BM morning. Pt reports HX of diverticulitis. History of Present Illness HPI narrative: patient is a 54-year-old female PMHx diverticulitis, interstitial cystitis, who presents to the ED with complaints of abdominal pain since . Patient states that the abdominal pain is located mostly on the left lower quadrant, admits she has had constipation but had a bowel movement . Patient states this feels like her normal diverticulitis that she has had associated chills and bodyaches. She denies additional complaints. Related Data Home Medications ?Medication ?Instructions ?Recorded ?Confirmed levothyroxine 112 mcg tablet 112 mcg PO ONCE THYROID 0 01/27/18 01/03/25 (Synthroid) trazodone 50 mg tablet 50 mg PO QHS SLEEP 01/22/20 01/03/25 amlodipine 2.5 mg tablet 2.5 mg PO DIRECTED 01/03/25 albuterol sulfate 90 mcg/actuation inhalation 12/25/24 01/03/25 aerosol inhaler (Ventolin HFA) nicotine 14 mg/24 hr daily 1 patch topical 12/25/24 transdermal patch omeprazole 20 mg capsule,delayed mg PO 12/25/24 release venlafaxine 150 mg mg PO 12/25/24 01/03/25 capsule,extended release 24 hr Previous Rx's ?Medication ?Instructions ?Recorded ciprofloxacin HCl 500 mg tablet 500 mg PO BID 5 days # 10 tabs 07/28/25 metronidazole 500 mg tablet 500 mg PO BID 5 days #10 t abs 07/28/25 Allergies Allergy/AdvReac Type Severity Reaction Status Date / Time amoxicillin Allergy Severe Swelling Verified 01/03/25 14:45 of Lip/Tongue/Throat sulfamethoxazole (From Allergy Unknown she states Verified 01/03/25 14:45 BACTRIM) that down in her ear would itch trimethoprim (From BACTRIM) Allergy Unknown Verified 01/03/25 14:45 Penicillins Allergy Verified 01/03/25 14:45 Sulfa (Sulfonamide Allergy Verified 01/03/25 14:45 Antibiotics) [facility] <Sera Vaughn APRN - Last Filed: 07/27/25 21:44> [facility] Disclaimer: The information contained in this section may have been updated after the patient was seen, as this information can be updated by other users. Medical History Tachycardia Surgical History History of midurethral sling procedure Hx of shoulder surgery Hx of bilateral salpingectomy Family History Other No significant family history Social History Smoking Status: Current every day smoker tobacco type: cigarettes packs per day: 1 second hand exposure: Yes alcohol intake: never substance use type: denies use current occupational status: other Travel in the last 8 weeks?: None household members: spouse housing: house number of children: 3 caffeine: Yes Have you lived/traveled outside [place] in past 30 days?: No Contact w/someone who lives/traveled outside US past 30 days?: No Exposure to someone with infectious disease in past 14 days?: No Do you have a fever (greater than 100.4 F or 38 C)?: No Have you tested positive for COVID-19?: No Exposed to someone with COVID-19 in past 14 days?: No Do you have a sore throat?: No Do you have a cough?: No Do you have any weakness?: No Do you have any diarrhea?: No Are you experiencing any unusual bleeding?: No Do you have any muscle aches/pain?: No Do you have any abdominal pain?: No Are you experiencing loss of taste or smell?: No Other Medical History Have you received the Flu Vaccine for this season: No Have you received the Pneumonia Vaccine: No <Sera Vaughn APRN - Last Filed: 07/27/25 21:44> ROS Obtained: Yes Systems reviewed as appropriate & no additional complaints except as documented Physical Exam <Sera Vaughn APRN - Last Filed: 07/27/25 21:44> General General appearance: alert Eye Eye exam: Present PERRL ENT ENT exam: Present normal exam Neck Neck exam: Present full ROM Chest Chest inspection: Present normal inspection Respiratory Respiratory exam: Present normal lung sounds bilaterally Cardiovascular Cardiovascular exam: Present regular rate Abdominal Exam Abdominal exam: Present soft and tenderness (left) Back Exam Back exam: Present full ROM Neurological Exam Neurological exam: Present alert and oriented X3 Medical Decision Making <MOHAN Guerrero Last Filed: 07/27/25 21:44> Medical Records Screening: Per USPSTF and CDC recommendations, given the prevalence of disease in our region, it is our hospital?s policy to screen for HIV and viral Hepatitis for all patients aged 18 and over and those with ongoing risk factors. [place] Inquiry Pt receiving controlled substance: No Vital Signs: 07/27/25 19:31 07/27/25 23:19 Temperature 98.2 F 98.5 F Temperature Source Temporal Artery Scan Pulse Rate 87 Pulse Rate [Radial] 93 H Respiratory Rate 18 16 Blood Pressure 143/79 H Blood Pressure [Right Arm] 153/83 H Blood Pressure Mean [Right Arm] 106 Blood Pressure Position [Right Arm] Sitting 02 Sat by Pulse Oximetry 95 Oxygen Delivery Method Room Air Room Air Lab Data Lab Results 07/27/25 19:55: WBC 13.9 H, RBC 4.90, Hgb 14.7, Hct 44.1, MCV 90.0, MCH 30.0, MCHC 33.3, RDW 12.7, Plt Count 384, MPV 9.4, Neut % (Auto) 51.3, Lymph % (Auto) 39.2, [place] % (Auto) 6.8, Eos % (Auto) 1.8, Baso % (Auto) 0.6, Neut # (Auto) 7.1, Lymph # (Auto) 5.4 H, [place]ett # (Auto) 1.0, Eos # (Auto) 0.3, Baso # (Auto) 0.1, Total Counted 100, Neutrophils % (Manual) 54, Lymphocytes % (Manual) 38, Monocytes % (Manual) 6, Eosinophils % (Manual) 2, Platelet Estimate Normal, RBC Morphology Normal, Sodium 141, Potassium 3.3 L, Chloride 100, Carbon Dioxide 33 H, Anion Gap 11.3, BUN 13, Creatinine 0.90, Estimated Creat Clear 90, Estimated GFR 65, Est GFR ( Amer) 79, Glucose 79, Calcium 9.9, Total Bilirubin 0.3, AST 24, ALT 18, Alkaline Phosphatase 100, Total Protein 7.9, Albumin 4.4, G lobulin 3.5 H, Albumin/Globulin Ratio 1.3, Lipase 120 07/27/25 20:00: Urine Color Yellow, Urine Appearance Sl cloudy, Urine pH 5.5, Ur Specific [place] >= 1.030, Urine Protein Negative, Urine Glucose (UA) Negative, Urine Ketones Trace, Urine Blood Negative, Urine Nitrate Negative, Urine Bilirubin Negative, Urine Urobilinogen 1.0, Ur Leukocyte Esterase Negative, Urine RBC None, Urine WBC Occasional, Ur Squamous Epith Cells 5-10, Urine Bacteria 1+ 07/27/25 19:55 07/27/25 19:55 Orders (Tests/Meds): ED MEDICATIONS Discontinued Medications Generic Name Dose Route Start Last Admin Trade Name Freq PRN Reason Stop Dose Admin Sodium Chloride 1,000 mls @ 999 mls/hr 07/27/25 19:48 07/27/25 21:16 Sod Chlor 0.9% 1000ml Bag IV 07/27/25 20:48 Infused .Q1H1M ONE Infusion Iopamidol 75 ml 07/27/25 20:41 07/27/25 20:41 Iopamidol-370 (76%);100ml Bottle IV 07/27/25 20:42 75 ml ONCE ONE Administration Levofloxacin 750 mg 07/27/25 22:56 07/27/25 23:07 Levofloxacin 750 Mg Tablet PO 07/27/25 22:57 750 mg ONCE ONE Administration Metronidazole 500 mg 07/27/25 22:56 07/27/25 23:08 Metronidazole 500 Mg Tablet PO 07/27/25 22:57 500 mg ONCE ONE Administration Morphine Sulfate 4 mg 07/27/25 19:48 07/27/25 20:09 Morphine 4mg/Ml Syringe IV 07/27/25 19:49 4 mg ONCE ONE Administration Ondansetron HCl 4 mg 07/27/25 19:48 07/27/25 20:08 Ondansetron 4mg/2ml Vial IV 07/27/25 19:49 4 mg ONCE ONE Administration Potassium Chloride 20 meq 07/27/25 21:38 07/27/25 21:58 Potassium Chloride 20meq Tab PO 07/27/25 21:39 20 meq ONCE ONE Administration Sodium Chloride 10 ml 07/27/25 20:41 07/27/25 20:41 Sodium Chloride 0.9% 10ml Syr (Rad Only) IV 07/27/25 20:42 10 ml ONCE ONE Administration ORDERS Category Date Time Status CT abdomen pelvis w con Stat Cat Scan 07/27/25 19:48 Completed CBC w/Auto Diff [Complete Blood Count Auto Diff] Stat Lab 07/27/25 19:55 Completed CMP [Comprehensive Metabolic Panel] Stat Lab 07/27/25 19:55 Completed Lipase Stat Lab 07/27/25 19:55 Completed Urinalysis and Microscopic Stat Lab 07/27/25 20:00 Completed Medical Decision Narrative: In summary, patient is a 54-year-old female PMHx diverticulitis, interstitial cystitis, who presents to the ED with complaints of abdominal pain since . Patient states that the abdominal pain is located mostly on the left lower quadrant, admits she has had constipation but had a bowel movement . Patient states this feels like her normal diverticulitis that she has had associated chills and bodyaches. She denies additional complaints. Upon initial evaluation she is alert, oriented and cooperative. She is stable. Her physical exam is remarkable for left sided abdominal tenderness, right flank tenderness. Denies objective fever, headache, chest pain, shortness of breath, vomiting, dysuria, frequency. Differential diagnosis included mesenteric ischemia, SBO, peritonitis, UTI, constipation, diverticulitis, diverticulosis, among others. Discussed with patient we will symptomatically manage with IV fluids, Zofran and morphine. Discussed labs, urinalysis and CT scan. Patient is agreeable to plan of care at this time. CBC remarkable for mild leukocytosis, WBC 13.9, stable H&H. CMP remarkable for potassium 3.3, will administer oral potassium. Lipase 120. Urinalysis unremarkable for any leuks, nitrites. CT scan has been performed, pending read. Care transferred to attending, Dr. Rodriguez. <Kera Rodriguez DO - Last Filed: 07/28/25 01:05> Medical Records Medical records reviewed: Yes I reviewed the patient's medical records. Vital Signs: 07/27/25 19:31 07/27/25 23:19 Temperature 98.2 F 98.5 F Temperature Source Temporal Artery Scan Pulse Rate 87 Pulse Rate [Radial] 93 H Respiratory Rate 18 16 Blood Pressure 143/79 H Blood Pressure [Right Arm] 153/83 H Blood Pressure Mean [Right Arm] 106 Blood Pressure Position [Right Arm] Sitting 02 Sat by Pulse Oximetry 95 Oxygen Delivery Method Room Air Room Air Lab Data Lab results reviewed: Yes I reviewed the patient's lab results. Lab Results 07/27/25 19:55: WBC 13.9 H, RBC 4.90, Hgb 14.7, Hct 44.1, MCV 90.0, MCH 30.0, MCHC 33.3, RDW 12.7, Plt Count 384, MPV 9.4, Neut % (Auto) 51.3, Lymph % (Auto) 39.2, [place]ett % (Auto) 6.8, Eos % (Auto) 1.8, Baso % (Auto) 0.6, Neut # (Auto) 7.1, Lymph # (Auto) 5.4 H, [place] # (Auto) 1.0, Eos # (Auto) 0.3, Baso # (Auto) 0.1, Total Counted 100, Neutrophils % (Manual) 54, Lymphocytes % (Manual) 38, Monocytes % (Manual) 6, Eosinophils % (Manual) 2, Platelet Estimate Normal, RBC Morphology Normal, Sodium 141, Potassium 3.3 L, Chloride 100, Carbon Dioxide 33 H, Anion Gap 11.3, BUN 13, Creatinine 0.90, Estimated Creat Clear 90, Estimated GFR 65, Est GFR ( Amer) 79, Glucose 79, Calcium 9.9, Total Bilirubin 0.3, AST 24, ALT 18, Alkaline Phosphatase 100, Total Protein 7.9, Albumin 4.4, G lobulin 3.5 H, Albumin/Globulin Ratio 1.3, Lipase 120 07/27/25 20:00: Urine Color Yellow, Urine Appearance Sl cloudy, Urine pH 5.5, Ur Specific [place] >= 1.030, Urine Protein Negative, Urine Glucose (UA) Negative, Urine Ketones Trace, Urine Blood Negative, Urine Nitrate Negative, Urine Bilirubin Negative, Urine Urobilinogen 1.0, Ur Leukocyte Esterase Negative, Urine RBC None, Urine WBC Occasional, Ur Squamous Epith Cells 5-10, Urine Bacteria 1+ Orders (Tests/Meds): ED MEDICATIONS Discontinued Medications Generic Name Dose Route Start Last Admin Trade Name Freq PRN Reason Stop Dose Admin Sodium Chloride 1,000 mls @ 999 mls/hr 07/27/25 19:48 07/27/25 21:16 Sod Chlor 0.9% 1000ml Bag IV 07/27/25 20:48 Infused .Q1H1M ONE Infusion Iopamidol 75 ml 07/27/25 20:41 07/27/25 20:41 Iopamidol-370 (76%);100ml Bottle IV 07/27/25 20:42 75 ml ONCE ONE Administration Levofloxacin 750 mg 07/27/25 22:56 07/27/25 23:07 Levofloxacin 750 Mg Tablet PO 07/27/25 22:57 750 mg ONCE ONE Administration Metronidazole 500 mg 07/27/25 22:56 07/27/25 23:08 Metronidazole 500 Mg Tablet PO 07/27/25 22:57 500 mg ONCE ONE Administration Morphine Sulfate 4 mg 07/27/25 19:48 07/27/25 20:09 Morphine 4mg/Ml Syringe IV 07/27/25 19:49 4 mg ONCE ONE Administration Ondansetron HCl 4 mg 07/27/25 19:48 07/27/25 20:08 Ondansetron 4mg/2ml Vial IV 07/27/25 19:49 4 mg ONCE ONE Administration Potassium Chloride 20 meq 07/27/25 21:38 07/27/25 21:58 Potassium Chloride 20meq Tab PO 07/27/25 21:39 20 meq ONCE ONE Administration Sodium Chloride 10 ml 07/27/25 20:41 07/27/25 20:41 Sodium Chloride 0.9% 10ml Syr (Rad Only) IV 07/27/25 20:42 10 ml ONCE ONE Administration ORDERS Category Date Time Status CT abdomen pelvis w con Stat Cat Scan 07/27/25 19:48 Completed CBC w/Auto Diff [Complete Blood Count Auto Diff] Stat Lab 07/27/25 19:55 Completed CMP [Comprehensive Metabolic Panel] Stat Lab 07/27/25 19:55 Completed Lipase Stat Lab 07/27/25 19:55 Completed Urinalysis and Microscopic Stat Lab 07/27/25 20:00 Completed Medical Decision Narrative: In summary, patient is a 54-year-old female PMHx diverticulitis, interstitial cystitis, who presents to the ED with complaints of abdominal pain since . Patient states that the abdominal pain is located mostly on the left lower quadrant, admits she has had constipation but had a bowel movement . Patient states this feels like her normal diverticulitis that she has had associated chills and bodyaches. She denies additional complaints. Upon initial evaluation she is alert, oriented and cooperative. She is stable. Her physical exam is remarkable for left sided abdominal tenderness, right flank tenderness. Denies objective fever, headache, chest pain, shortness of breath, vomiting, dysuria, frequency. Differential diagnosis included mesenteric ischemia, SBO, peritonitis, UTI, constipation, diverticulitis, diverticulosis, among others. Discussed with patient we will symptomatically manage with IV fluids, Zofran and morphine. Discussed labs, urinalysis and CT scan. Patient is agreeable to plan of care at this time. CBC remarkable for mild leukocytosis, WBC 13.9, stable H&H. CMP remarkable for potassium 3.3, will administer oral potassium. Lipase 120. Urinalysis unremarkable for any leuks, nitrites. CT scan has been performed, pending read. Care transferred to attending, Dr. Rodriguez. Kera Rodriguez DO I assumed care of the patient at 2200. Patient CT scan was reviewed and interpreted by myself and showed acute diverticulitis without evidence of complication including abscess or perforation. At this time, patient does have a penicillin allergy therefore patient was given Flagyl and ciprofloxacin in the emergency department and given a course of antibiotics to go home with. Patient states that her pain was otherwise well- controlled and patient was discharged home in stable condition. Patient was recommended to take Tylenol Motrin as needed and to return to the emergency department for any acute or worsening symptoms. Critical Care <Sera Vaughn APRN - Last Filed: 07/27/25 21:44> Critical Care Time Critical Care Time: No
[2025-07-27 20:08] LABS: Bilirubin,Urine Negative (Negative); Color,Urine YELLOW (Yellow); Glucose,Urine (UA) Negative (Negative); Ketones,Urine TRACE (Negative); Leukocyte Esterase,Urine Negative (Negative); Microscopic, Urine URINE MICROSCOPIC (MICROSCOPIC); PH,Urine 5.5 (5.0-8.5); Protein,Urine Negative (Negative); Specific Gravity, Urine >= 1.030 (1.005-1.030); Urobilinogen,Urine 1.0 EU/dl (0.2)
[2025-07-27] MEDS: ONDANSETRON 4MG/2ML VIAL 4 MG IV (20:08)
[2025-07-27] MEDS: MORPHINE 4MG/ML SYRINGE 4 MG IV (20:09)
[2025-07-27] MEDS: 0.9 % SODIUM CHLORIDE 1000ML 1,000 ML 999 ML IV (20:09)
[2025-07-27 20:13] LABS: Hematocrit 44.1 % (37.0-47.0); Hemoglobin 14.7 g/dL (12.2-16.2); Immature Granulocytes % 0.3 %; Mean Corpuscular HGB Conc 33.3 g/dL (31.8-35.4); Mean Corpuscular Hemoglobin 30.0 pg (27.0-31.2); Mean Corpuscular Volume 90.0 fl (81-99); Nucleated Red Blood Cells % 0 %; Platelet Count 384 K/mm3 (142-424); Red Blood Count 4.90 M/mm3 (4.20-5.40); Red Cell Distribution Width-SD 42.6 fL; White Blood Count 13.9 K/mm3 (4.8-10.8)
[2025-07-27 20:16] LABS: WBC,Urine Occasional #/hpf (0-3)
[2025-07-27 20:17] LABS: Bacteria,Urine 1+ /lpf
[2025-07-27 20:19] LABS: Albumin Level 4.4 g/dl (3.5-5.0); Chloride 100 mmol/L (98-107); Potassium 3.3 mmoL/L (3.5-5.1); Sodium 141 mmol/L (136-145)
[2025-07-27 20:21] LABS: Blood Urea Nitrogen 13 mg/dl (7-17); Creatinine Clearance Estimated 90 mL/min (50-200); Creatinine,Serum 0.90 mg/dl (0.52-1.04); Estimated Glomerular Filt Rate 65 ml/min (>60); GFR (African American) 79 ML/MIN (>60)
[2025-07-27 20:22] LABS: Alanine Aminotransferase 18 U/L (12-78); Albumin/Globulin Ratio 1.3 (1.1-1.8); Alkaline Phosphatase 100 U/L (38-126); Anion Gap 11.3 mEq/L (5-15); Aspartate Amino Transferase 24 U/L (14-36); Bilirubin,Total 0.3 mg/dl (0.2-1.3); Calcium 9.9 mg/dl (8.4-10.2); Carbon Dioxide 33 mmol/L (22.0-30.0); Globulin 3.5 g/dL (1.3-3.2); Glucose 79 mg/dl (74-100); Lipase 120 U/L (23-300); Total Protein,Serum 7.9 g/dl (6.3-8.2)
[2025-07-27] MEDS: IOPAMIDOL-370 (76%);100ML BOTTLE 75 ML IV (20:41)
[2025-07-27] MEDS: SODIUM CHLORIDE 0.9% 10ML SYR (RAD ONLY) 10 ML IV (20:41)
[2025-07-27 20:50] LABS: RBC Morphology Normal; Total Cells Counted 100
[2025-07-27] MEDS: POTASSIUM CHLORIDE 20MEQ TAB 20 MEQ PO (21:58)
[2025-07-27 23:19] VITALS: BP 143/79; PULSE 87; RESP 16; TEMP 36.9; O2SAT 98
== END 2025-07-27 23:20 | disposition home or self-care (01) ==
LOC: ER 19:36
PROVIDERS: Nurse Practitioner; Emergency Provider Student in an Organized Health Care Education/Training Program; PCP Nurse Practitioner Family
DX: R10.32 Left lower quadrant pain (principal); K57.32 Diverticulitis of large intestine without perforation or abscess without bleeding; E87.6 Hypokalemia; F17.210 Nicotine dependence, cigarettes, uncomplicated
CPT/HCPCS: 74177; 80053; 81001; 83690; 85007; 85025; 96361; 96374; 96375; 99285; J2270; J2405; J7030; Q9967

== ENCOUNTER 2025-08-01 12:28 | Outpatient (CLI) | payer OTHER, SELFPAY ==
--- OUTSIDE RECORDS SUMMARY | 2025-08-01 12:30 | XMS_ITS | Clinical Summary ---
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
[2025-08-01 13:00] LABS: Hematocrit 43.0 % (37.0-47.0); Hemoglobin 14.2 g/dL (12.2-16.2); Immature Granulocytes % 0.2 %; Mean Corpuscular HGB Conc 33.0 g/dL (31.8-35.4); Mean Corpuscular Hemoglobin 30.1 pg (27.0-31.2); Mean Corpuscular Volume 91.3 fl (81-99); Nucleated Red Blood Cells % 0 %; Platelet Count 381 K/mm3 (142-424); Red Blood Count 4.71 M/mm3 (4.20-5.40); Red Cell Distribution Width-SD 42.5 fL; White Blood Count 11.4 K/mm3 (4.8-10.8)
[2025-08-01 13:47] LABS: Alanine Aminotransferase 35 U/L (12-78); Albumin Level 4.2 g/dl (3.5-5.0); Albumin/Globulin Ratio 1.7 (1.1-1.8); Alkaline Phosphatase 107 U/L (38-126); Anion Gap 11.5 mEq/L (5-15); Aspartate Amino Transferase 29 U/L (14-36); Bilirubin,Total 0.4 mg/dl (0.2-1.3); Blood Urea Nitrogen 12 mg/dl (7-17); Calcium 9.7 mg/dl (8.4-10.2); Carbon Dioxide 29 mmol/L (22.0-30.0); Chloride 103 mmol/L (98-107); Creatinine,Serum 0.80 mg/dl (0.52-1.04); Estimated Glomerular Filt Rate 75 ml/min (>60); GFR (African American) 90 ML/MIN (>60); Globulin 2.5 g/dL (1.3-3.2); Glucose 83 mg/dl (74-100); Potassium 4.5 mmoL/L (3.5-5.1); Sodium 139 mmol/L (136-145); Total Protein,Serum 6.7 g/dl (6.3-8.2)
== END 2025-08-01 23:59 | disposition home or self-care (01) ==
LOC: LAB 12:29
PROVIDERS: PCP Nurse Practitioner Family; Visit Provider Nurse Practitioner Family
DX: K57.92 Diverticulitis of intestine, part unspecified, without perforation or abscess without bleeding (principal)
CPT/HCPCS: 36415; 80053; 85025

== ENCOUNTER 2025-08-26 13:40 | Outpatient (CLI) | payer OTHER, SELFPAY ==
--- NOTE | 2025-08-26 13:43 | CT_ITS ---
FINAL REPORT TECHNIQUE: After the administration of intravenous contrast, axial images were obtained through the abdomen and pelvis by computed tomography. The study was performed with techniques to keep radiation dose as low as reasonably achievable, (ALARA). Individual dose reduction techniques using automated exposure control or adjustment of mA and/or kV according to the patient's size were employed. CLINICAL HISTORY: ACUTE DIVERTICULITIS COMPARISON: 07/27/2025 FINDINGS: Abdomen: Mild ground-glass opacities are noted in the lung bases, similar to the prior study. The liver parenchyma is homogeneous. The gallbladder is present. The spleen, pancreas, adrenals and kidneys appear unremarkable. The aorta is normal in caliber. There is no free fluid or adenopathy. Pelvis: Scattered diverticula are noted in the descending colon. No localized inflammatory reaction. The previously noted and inflammation in the diverticulum is no longer seen. The appendix is unremarkable. The urinary bladder is unremarkable. The uterus is anteverted. There is no free fluid or adenopathy. IMPRESSION: Previously noted inflamed diverticulum no longer seen. Reviewed, Interpreted and Dictated by Dony Saldaña MD Transcribed by Makeda Schwartz Authenticated and [facility]
[2025-08-26 13:55] LABS: Hematocrit 42.5 % (37.0-47.0); Hemoglobin 14.2 g/dL (12.2-16.2); Immature Granulocytes % 0.3 %; Mean Corpuscular HGB Conc 33.4 g/dL (31.8-35.4); Mean Corpuscular Hemoglobin 30.1 pg (27.0-31.2); Mean Corpuscular Volume 90.2 fl (81-99); Nucleated Red Blood Cells % 0 %; Platelet Count 364 K/mm3 (142-424); Red Blood Count 4.71 M/mm3 (4.20-5.40); Red Cell Distribution Width-SD 42.2 fL; White Blood Count 16.0 K/mm3 (4.8-10.8)
[2025-08-26 14:07] LABS: Albumin Level 3.3 g/dl (3.5-5.0); Chloride 101 mmol/L (98-107); Potassium 3.6 mmoL/L (3.5-5.1); Sodium 135 mmol/L (136-145)
[2025-08-26 14:10] LABS: Alanine Aminotransferase 23 U/L (12-78); Albumin/Globulin Ratio 0.8 (1.1-1.8); Alkaline Phosphatase 94 U/L (38-126); Anion Gap 8.6 mEq/L (5-15); Aspartate Amino Transferase 26 U/L (14-36); Bilirubin,Total 0.3 mg/dl (0.2-1.3); Blood Urea Nitrogen 14 mg/dl (7-17); Calcium 9.0 mg/dl (8.4-10.2); Carbon Dioxide 29 mmol/L (22.0-30.0); Creatinine,Serum 1.60 mg/dl (0.52-1.04); Estimated Glomerular Filt Rate 33 ml/min (>60); GFR (African American) 40 ML/MIN (>60); Globulin 4.1 g/dL (1.3-3.2); Glucose 110 mg/dl (74-100); Total Protein,Serum 7.4 g/dl (6.3-8.2)
--- OUTSIDE RECORDS SUMMARY | 2025-08-26 14:39 | XMS_ITS | Clinical Summary ---
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
[2025-08-26] MEDS: SODIUM CHLORIDE 0.9% 10ML SYR (RAD ONLY) 10 ML IV (14:47)
[2025-08-26] MEDS: IOPAMIDOL-370 (76%);100ML BOTTLE 75 ML IV (14:47)
== END 2025-08-26 23:59 | disposition home or self-care (01) ==
LOC: RAD 13:41
PROVIDERS: PCP Nurse Practitioner Family; Visit Provider Nurse Practitioner Family
DX: K57.92 Diverticulitis of intestine, part unspecified, without perforation or abscess without bleeding (principal)
CPT/HCPCS: 36415; 74177; 80053; 85025; 85651; Q9967

== ENCOUNTER 2025-10-07 08:31 | Day surgery (SDC) | payer OTHER, SELFPAY ==
--- NOTE | 2025-10-01 08:57 | EXP.HP ---
History of Present Illness *Admission Date: 10/07/25 *History of present illness: Mrs. Rowley is a 55-year-old female who is here for diagnostic colonoscopy. The patient has recently developed left lower quadrant abdominal pain and diarrhea. She went to the ED and her CAT scan showed uncomplicated sigmoid diverticulitis. She was treated with ciprofloxacin and Flagyl. She did have improvement of her symptoms but is still having some left-sided abdominal discomfort. She did take a second round of antibiotics. She had an abdominal ultrasound that was normal. The patient did have a colonoscopy with in 2016. She did have an EGD with Justin Gagnon MD in March 2020 and had gastritis with H. pylori which was treated. Her father had advanced esophageal cancer in his mid 60s. The examination is deemed medically necessary for diagnostic colonoscopy. The patient has been seen, interviewed and examined prior to the procedure by both myself and the anesthesia provider. [facility] Disclaimer: The information contained in this section may have been updated after the patient was seen, as this information can be updated by other users. Medical History Hypertension Tachycardia Surgical History History of thyroidectomy History of midurethral sling procedure Hx of shoulder surgery Hx of bilateral salpingectomy Family History Other No significant family history Social History Smoking Status: Current every day smoker tobacco type: cigarettes packs per day: 1 second hand exposure: Yes alcohol intake: never substance use type: denies use current occupational status: unemployed Travel in the last 8 weeks?: None household members: spouse housing: house number of children: 3 caffeine: Yes Have you lived/traveled outside [place] in past 30 days?: No Contact w/someone who lives/traveled outside US past 30 days?: No Exposure to someone with infectious disease in past 14 days?: No Do you have a fever (greater than 100.4 F or 38 C)?: No Have you tested positive for COVID-19?: No Exposed to someone with COVID-19 in past 14 days?: No Do you have a sore throat?: No Do you have a cough?: No Do you have any weakness?: No Are you experiencing any nausea/vomitting?: Yes Do you have any diarrhea?: No Are you experiencing any unusual bleeding?: No Do you have any muscle aches/pain?: No Do you have any abdominal pain?: No Are you experiencing loss of taste or smell?: No Other Medical History Have you received the Flu Vaccine for this season: No Have you received the Pneumonia Vaccine: No Review of Systems Review of Systems Review of systems (narrative): Negative *Cardiovascular Comments: Negative *Gastrointestinal Comments: Negative *Genitourinary Comments: Negative *Musculoskeletal Comments: Negative *Neurologic Comments: Negative Meds Home Medications and Allergies Home Medications ?Medication ?Instructions ?Recorded ?Confirmed ?Type levothyroxine 112 mcg tablet 112 mcg PO ONCE THYROID 01/27/18 10/07/25 History (Synthroid) trazodone 50 mg tablet 50 mg PO QHS SLEEP 01/22/20 10/07/25 History amlodipine 2.5 mg tablet 2.5 mg PO DIRECTED 09/28/24 10/07/25 History albuterol sulfate 90 mcg/actuation 1 puff inhalation NEEDED PRN soa 08/29/25 10/07/25 History aerosol inhaler (Ventolin HFA) omeprazole 20 mg capsule,delayed 20 mg PO ONCE 08/29/25 10/07/25 History release venlafaxine 150 mg 150 mg PO ONCE 08/29/25 10/07/25 History capsule,extended release 24 hr sodium,potassium,mag sulfates 17.5 See Rx Instructions PO .COMPLEX 09/19/25 10/07/25 Rx gram-3.13 gram-1.6 gram oral soln #354 mL (Suprep Bowel Prep Kit) New Prescriptions to Start Prescriptions: Allergies Allergy/AdvReac Type Severity Reaction Status Date / Time amoxicillin Allergy Severe Swelling Verified 10/07/25 08:54 of Lip/Tongue/Throat sulfamethoxazole (From Allergy Unknown she states Verified 10/07/25 08:54 BACTRIM) that down in her ear would itch trimethoprim (From BACTRIM) Allergy Unknown Flushing Verified 10/07/25 08:54 Penicillins Allergy Flushing Verified 10/07/25 08:54 Sulfa (Sulfonamide Allergy Flushing Verified 10/07/25 08:54 Antibiotics) Exam *Routine HEENT Exam Head: Present normocephalic Eye: Present EOMI and PERRL ENT: Present mucous membranes moist *Routine Neck Exam Neck: Present supple *Routine Respiratory Exam Respiratory: Present CTA bilaterally *Routine Cardiovascular Exam Cardiovascular: Present RRR *Routine Abdominal Exam Abdominal: Present soft and normoactive bowel sounds; Absent tenderness *Routine Rectal Exam Rectal:: deferred *Routine Genitalia Exam Genitalia:: deferred *Routine Extremities Exam Extremities: Absent cyanosis, clubbing or edema *Routine Skin Exam Skin: Present warm; Absent rash *Routine Neurological Exam Neurological: Present alert and oriented X3 Assessment and Plan *Assessment and plan (1) LLQ abdominal pain: Status: Acute Category: Medical Code(s): R10.32 - Left lower quadrant pain (2) Diverticulitis: Status: Acute Category: Medical Code(s): K57.92 - Diverticulitis of intestine, part unspecified, without perforation or abscess without bleeding Plan A/P: 1. Left lower quadrant abdominal pain with history of uncomplicated diverticulitis is the preprocedural diagnosis. The patient will be anesthetized/sedated using MAC sedation. The patient has been seen and examined. Cardiac and lung assessment prior to the examination is stable. Proceed with planned diagnostic colonoscopy.
[2025-10-01 13:06] VITALS: BMI 30.9
--- NOTE | 2025-10-07 06:58 | HMH.PROCNOTE ---
[facility] Procedure Note Date: 10/07/25 Time: 09:43 Procedure Note:: Colonoscopy Procedure Report: Colonoscopy Endoscopist: Yo Moss II, MD Referring physician: MELODY Chris Date of Procedure: October 07, 2025 Equipment: Olympus [id number] adult colonoscope Sedation: MAC sedation Indication: Mrs. Rowley is a 55-year-old female who is here for diagnostic colonoscopy. The patient has recently developed left lower quadrant abdominal pain and diarrhea. She went to the ED and her CAT scan showed uncomplicated sigmoid diverticulitis. She was treated with ciprofloxacin and Flagyl. She did have improvement of her symptoms but is still having some left-sided abdominal discomfort. She did take a second round of antibiotics. She had an abdominal ultrasound that was normal. The patient does state that she alternates between constipation and diarrhea. She reports no rectal bleeding. She does state that her grandfather had colon cancer. The patient did have a colonoscopy with me in 2016. She did have an EGD with Justin Gagnon MD in March 2020 and had gastritis with H. pylori which was treated. Her father had advanced esophageal cancer in his mid 60s. The examination is deemed medically necessary for diagnostic colonoscopy. Procedure: Prior to the procedure, a history and physical exam was performed, and patient's medications and allergies were reviewed. The risks, benefits and alternatives of the sedation and procedure were discussed with the patient. All questions were answered and informed consent was obtained. The patient was brought to the procedure room. Patient identification and proposed procedure were verified by the physician and the nurse. The patient was placed in a left lateral decubitus position and the scope was passed under direct vision. Throughout the procedure, the patient's blood pressure, pulse, and oxygen saturations were monitored continuously. The colonoscopy was accomplished without difficulty. The patient tolerated the procedure well. Findings: On digital rectal examination there was normal rectal tone. There were no external hemorrhoids. The colonoscope was introduced through the anal canal to the rectum and advanced to the cecum. The ileocecal valve and appendiceal orifice were identified. The scope was advanced a short distance into the ileum which appeared grossly normal. The scope was then withdrawn into the colon. The cecum, ascending and transverse colon and mucosa were grossly normal. There were scattered diverticuli throughout the descending and sigmoid colon (LEFT colon). The rectum itself was normal with small rectal vault. Upon retroflexion within the rectum there were grade 1 internal hemorrhoids. The preparation was excellent throughout with Tescott Preparation Score of 9. The cecal time was 10 minutes. Impression: 1. Left-sided diverticulosis 2. Small grade 1 internal hemorrhoids Plan: I will discuss the findings with the patient and family. She does have left-sided diverticulosis with spastic diverticular disease/IBS. I would recommend dietary measures and fiber bowel regimen. We will discuss additional treatment. The patient will not require screening/surveillance colonoscopy again for 10 years by ACS guidelines.
[2025-10-07 08:55] VITALS: BP 141/73; PULSE 97; RESP 18; TEMP 36.7; O2SAT 96; BMI 30.9
[2025-10-07] MEDS: LACTATED RINGERS 1000ML 1,000 ML 50 ML IV (09:05)
--- NOTE | 2025-10-07 09:10 | P.PNANES_ITS ---
[facility] Disclaimer: The information contained in this section may have been updated after the patient was seen, as this information can be updated by other users. Medical History Hypertension Tachycardia Surgical History History of thyroidectomy History of midurethral sling procedure Hx of shoulder surgery Hx of bilateral salpingectomy Family History Other No significant family history Social History Smoking Status: Current every day smoker tobacco type: cigarettes packs per day: 1 second hand exposure: Yes alcohol intake: never substance use type: denies use current occupational status: unemployed Travel in the last 8 weeks?: None household members: spouse housing: house number of children: 3 caffeine: Yes Have you lived/traveled outside [place] in past 30 days?: No Contact w/someone who lives/traveled outside [place] past 30 days?: No Exposure to someone with infectious disease in past 14 days?: No Do you have a fever (greater than 100.4 F or 38 C)?: No Have you tested positive for COVID-19?: No Exposed to someone with COVID-19 in past 14 days?: No Do you have a sore throat?: No Do you have a cough?: No Do you have any weakness?: No Are you experiencing any nausea/vomitting?: Yes Do you have any diarrhea?: No Are you experiencing any unusual bleeding?: No Do you have any muscle aches/pain?: No Do you have any abdominal pain?: No Are you experiencing loss of taste or smell?: No [facility] Anesthesia Checklist Patient Identification Patient Identification: Arm Band and Verbal (Name & ) Structural Data Admitted From: Home Planned Operative Procedure/s: Colonoscopy Consent for Planned Operative Procedure(s) Verified: Yes Verified Documents: Surgical Consent Chart Verification Results Verified: None Additional verifications Anesthesia Reactions: No Hx Blood Transfusions: No Blood Transfusion Reaction: No Airway Assessment Mallampati Score:: Class II C-Spine Mobility Assessed: Yes TMJ Mobility Assessed: Yes Dentition: Good Dentition Neurological Assessment Level of Consciousness: Awake, Alert and Appropriate Hx Seizures: No Numbness or tingling in extremities: No Anesthesia Plan Anesthesia Risk discussed: Yes Anesthesia Plan: Verified ASA Class: II Anesthesia Type: MAC
[2025-10-07 09:45] VITALS: BP 110/67; PULSE 87; RESP 17; TEMP 36.2; O2SAT 95
[2025-10-07 09:55] VITALS: BP 123/60; PULSE 88; RESP 17; TEMP 36.2; O2SAT 94
[2025-10-07 10:05] VITALS: BP 136/75; PULSE 79; RESP 18; TEMP 36.2; O2SAT 95
[2025-10-07 10:15] VITALS: BP 118/72; PULSE 80; RESP 18; TEMP 36.2; O2SAT 95
== END 2025-10-07 10:43 | disposition home or self-care (01) ==
PROVIDERS: PCP Nurse Practitioner Family; Visit Provider Internal Medicine Gastroenterology
PROC: 0DJD8ZZ Inspection of Lower Intestinal Tract, Via Natural or Artificial Opening Endoscopic (ICD-10-PCS; CPT 45378; principal; 2025-10-07 10:00)
DX: K57.30 Diverticulosis of large intestine without perforation or abscess without bleeding (principal); K64.0 First degree hemorrhoids; K58.2 Mixed irritable bowel syndrome; Z80.0 Family history of malignant neoplasm of digestive organs; I10 Essential (primary) hypertension; F17.210 Nicotine dependence, cigarettes, uncomplicated; Z79.890 Hormone replacement therapy; E89.0 Postprocedural hypothyroidism; Z79.899 Other long term (current) drug therapy; Z88.0 Allergy status to penicillin; Z88.1 Allergy status to other antibiotic agents; Z88.2 Allergy status to sulfonamides; Z86.19 Personal history of other infectious and parasitic diseases
CPT/HCPCS: 45378; J2003; J2704; J7120